=== PATIENT | male | born 1945 | race Caucasian/White ===

== ENCOUNTER 2016-08-10 15:23 | Inpatient (IN) | payer OTHER, MEDICARE ==
[2016-08-10] VITALS (7 sets, daily range): BP systolic 91–121; BP diastolic 62–77; PULSE 65–72; RESP 16–24; TEMP 97.2–97.3; O2SAT 95–98
[~2016-08-10] VITALS: Ht 185.4 cm; Wt 99.6 kg
--- NOTE | 2016-08-10 15:30 | PD ---
Physical Exam Date Seen by Provider: August 10, 2016 Time Seen by Provider: 15:28 Narrative 70 YOWM C/O FALL. H/O FALLING. CHRONIC PEDAL EDEMA. FEELS NEED FOR MED ADJUSTMENT. [facility] BALBUENA VS NOTED wating for bed asignment Data Data Last Documented VS Vital Signs Date Time Temp Pulse Resp B/P Pulse Ox O2 Delivery O2 Flow Rate FiO2 08/10/16 15:26 97.3 72 24 91/62 95 Room Air [facility] Medical Record Reviewed: No Supervised Visit with KEL: Jose Antonio Dai August 10, 2016 15:30
[2016-08-10] MEDS ORDERED: SODIUM CHLORIDE 0.9% FLUSH 10 ML FLUSH IVF PRN (16:00)
[2016-08-10] MEDS ORDERED: SERO400T PO (16:41)
[2016-08-10] MEDS ORDERED: LISI2.5T3 PO (16:41)
[2016-08-10] MEDS ORDERED: VENTAER INH (16:41)
[2016-08-10] MEDS ORDERED: METO100T9 PO (16:41)
[2016-08-10] MEDS ORDERED: TAMS0.4C4 PO (16:41)
[2016-08-10] MEDS ORDERED: TYLE325T PO (16:41)
[2016-08-10] MEDS ORDERED: COLA100C3 PO (16:41)
[2016-08-10] MEDS ORDERED: VITA10002 PO (16:41)
[2016-08-10] MEDS ORDERED: NAPR500T PO (16:41)
[2016-08-10] MEDS ORDERED: FURO1TAB62 PO (16:41)
[2016-08-10] MEDS ORDERED: ALLO100T PO (16:41)
[2016-08-10] MEDS ORDERED: GABA100C4 PO (16:41)
[2016-08-10] MEDS ORDERED: FOLI1TAB4 PO (16:41)
[2016-08-10] MEDS ORDERED: SYMB160A INH (16:41)
[2016-08-10] MEDS ORDERED: PARO40TA2 PO (16:41)
[2016-08-10] MEDS ORDERED: ATOR20TA15 PO (16:41)
--- NOTE | 2016-08-10 16:43 | RADRPT ---
EXAM DATE/TIME: 08/10/2016 16:20 [facility] COMPARISON: No previous studies available for comparison. INDICATIONS : Chest pain, shortness of breath starting today MEDICAL HISTORY : None. SURGICAL HISTORY : Defibrillator ENCOUNTER: Initial ACUITY: 1 day PAIN SCORE: 5/10 LOCATION: Bilateral chest FINDINGS: Pacemaker is implanted in the left chest. Heart is enlarged. Pulmonary vascularity is normal. Ther e is no alveolar consolidation, pleural effusion or pneumothorax. CONCLUSION: Pacer, compensated cardiomegaly. Petr Lopez MD FACR on August 10, 2016 at 16:39 Board Certified Radiologist. This report was verified electronically.
[2016-08-10 16:56] LABS: AUTOMATED NEUTROPHIL # 7.5 TH/MM3 (1.8-7.7); BASOPHIL % 0.3 % (0.0-2.0); EOSINOPHIL % 0.1 % (0.0-4.0); HEMATOCRIT 39.5 % (39.0-51.0); HEMO FLAGS DIFF FINAL; LYMPH % 15.2 % (9.0-44.0); LYMPHOCYTE # 1.5 TH/MM3 (1.0-4.8); MEAN CELL VOLUME 80.7 FL (80.0-100.0); MEAN CORPUSCULAR HEMOGLOBIN 25.8 PG (27.0-34.0); MONO % 9.6 % (0.0-8.0); NEUT % 74.8 % (16.0-70.0); PLATELET COUNT 180 TH/MM3 (150-450); RED CELL DISTRIBUTION WIDTH 16.4 % (11.6-17.2)
[2016-08-10 17:03] LABS: APTT (PATIENT) 27.8 SEC (24.3-30.1); INTERNATIONAL NORMALIZED RATIO 1.3 RATIO; PROTHROMBIN TIME - PATIENT 14.5 SEC (9.8-11.6)
[2016-08-10 17:09] LABS: ANION GAP 10 MEQ/L (5-15); BICARBONATE 30.2 MEQ/L (21.0-32.0); BLOOD UREA NITROGEN 30 MG/DL (7-18); CHLORIDE 98 MEQ/L (98-107); GLOMERULAR FILTRATION RATE 34 ML/MIN (>89); MAGNESIUM 2.3 MG/DL (1.5-2.5); POTASSIUM 4.1 MEQ/L (3.5-5.1); SODIUM (NA) 138 MEQ/L (136-145)
[2016-08-10 17:14] LABS: CREATINE KINASE 136 U/L (39-308)
--- NOTE | 2016-08-10 17:27 | PD ---
HPI Chief Complaint: Fall Time Seen by Provider: 15:49 Travel History International Travel<30 days: No Contact w/Intl Traveler<30days: No Traveled to known affect area: No History of Present Illness HPI 70 yo M arrives from the [place]. He reports dyspnea on exertion and orthopnea for the past several days. He states he has been taking his Lasix as per usual. He reports he had a fall today at home. He denies pain or injury from the fall. Evidently he's been falling somewhat frequently at home. Additionally he reports feeling somewhat dizzy. To me he states that he might have lost consciousness when he fell however he is not sure. He suggested that his medications may need to be adjusted, as did his primary from the [place] in transfer documentation. was seen at the [place] this morning and was sent here for further investigation. [facility] Past Medical History Cardiovascular Problems: Yes Congestive Heart Failure: Yes Diminished Hearing: No Gout: Yes Myocardial Infarction: Yes (x 2) Tetanus Vaccination: Unknown Influenza Vaccination: No ?: Not Past Surgical History AICD: Yes Other Surgery: Yes (defib placement) Social History Alcohol Use: Yes (occ) Tobacco Use: Yes Substance Use: No Allergies-Medications (Allergen,Severity, Reaction): Coded Allergies: No Known Allergies (Unverified , 08/10/16) Reported Meds & Prescriptions Reported Meds & Active Scripts Active Reported Naproxen 500 Mg Tab 500 Mg PO BID Tamsulosin (Tamsulosin HCl) 0.4 Mg Cap 0.4 Mg PO HS Seroquel (Quetiapine Fumarate) 400 Mg Tab 400 Mg PO HS Paroxetine (Paroxetine HCl) 40 Mg Tab 20 Mg PO DAILY Metoprolol Succinate ER 24 HR (Metoprolol Succinate) 100 Mg Tab 50 Mg PO DAILY Hold if SBP <90 Lisinopril 2.5 Mg Tab 2.5 Mg PO DAILY Hold if SBP <90 Gabapentin 100 Mg Cap 100 Mg PO TID Lasix (Furosemide) 20 Mg Tab 20 Mg PO DAILY Folate (Folic Acid) 1 Mg Tab 1 Mg PO DAILY Colace (Docusate Sodium) 100 Mg Cap 100 Mg PO BID Vitamin B-12 (Cyanocobalamin) 1,000 Mcg Tab 1,000 Mcg PO DAILY Symbicort Inh (Budesonide/Formoterol Fumarate) 160-4.5 Mcg/Act Aero 2 Puff INH Q12HR Atorvastatin (Atorvastatin Calcium) 20 Mg Tab 10 Mg PO HS Allopurinol 100 Mg Tab 100 Mg PO DAILY Ventolin Hfa 18 GM Inh (Albuterol Sulfate) 90 Mcg/Act Aer 2 Puff INH QID PRN Tylenol (Acetaminophen) 325 Mg Tab 325 Mg PO Q6H PRN Review of Systems Except as stated in HPI: all other systems reviewed are Neg Physical Exam Narrative GENERAL: 70 yo M, WNWD, mild distress SKIN: Warm and dry. HEAD: Atraumatic. Normocephalic. EYES: Pupils equal and round. No scleral icterus. No injection or drainage. ENT: No nasal bleeding or discharge. Mucous membranes pink and moist. NECK: Trachea midline. No JVD. CARDIOVASCULAR: Regular rate and rhythm. RESPIRATORY: No accessory muscle use. Clear to auscultation. Breath sounds equal bilaterally. GASTROINTESTINAL: Abdomen soft, non-tender, nondistended. Hepatic and splenic margins not palpable. MUSCULOSKELETAL: Extremities without clubbing, cyanosis. No obvious deformity. 2 + pitting edema bilaterally lower extremities. There is a palpable dorsalis pedis pulse in both feet. On the left foot there is a mild darkening/ discoloration. Foot is somewhat cold on the left side. NEUROLOGICAL: Awake and alert. No obvious cranial nerve deficits. Motor grossly within normal limits. Five out of 5 muscle strength in the arms and legs. Normal speech. PSYCHIATRIC: Appropriate mood and affect; insight and judgment normal. Data Data Last Documented VS Vital Signs Date Time Temp Pulse Resp B/P Pulse Ox O2 Delivery O2 Flow Rate FiO2 08/10/16 16:47 65 16 107/67 98 Room Air 08/10/16 15:26 97.3 Vital signs reviewed Orders Complete Blood Count With Diff (08/10/16 15:49) Basic Metabolic Panel (Bmp) (08/10/16 15:49) B-Type Natriuretic Peptide (08/10/16 15:49) Act Partial Throm Time (Ptt) (08/10/16 15:49) Prothrombin Time / Inr (Pt) (08/10/16 15:49) Magnesium (Mg) (08/10/16 15:49) Ckmb (Isoenzyme) Profile (08/10/16 15:49) Troponin I (08/10/16 15:49) Iv Access Insert/Monitor (08/10/16 15:49) Electrocardiogram (08/10/16 15:49) Ecg Monitoring (08/10/16 15:49) Oximetry (08/10/16 15:49) Oxygen Administration (08/10/16 15:49) Chest, Single Ap (08/10/16 15:49) Sodium Chloride 0.9% Flush (Ns Flush) (08/10/16 16:00) CKMB (08/10/16 16:01) CKMB% (08/10/16 16:01) Furosemide Inj (Lasix Inj) (08/10/16 17:30) Admit Order (Ed Use Only) (08/10/16 17:29) Labs Laboratory Tests Test 08/10/16 16:01 White Blood Count 10.0 TH/MM3 Red Blood Count 4.90 MIL/MM3 Hemoglobin 12.6 GM/DL Hematocrit 39.5 % Mean Corpuscular Volume 80.7 FL Mean Corpuscular Hemoglobin 25.8 PG Mean Corpuscular Hemoglobin 32.0 % Concent Red Cell Distribution Width 16.4 % Platelet Count 180 TH/MM3 Mean Platelet Volume 8.6 FL Neutrophils (%) (Auto) 74.8 % Lymphocytes (%) (Auto) 15.2 % Monocytes (%) (Auto) 9.6 % Eosinophils (%) (Auto) 0.1 % Basophils (%) (Auto) 0.3 % Neutrophils # (Auto) 7.5 TH/MM3 Lymphocytes # (Auto) 1.5 TH/MM3 Monocytes # (Auto) 1.0 TH/MM3 Eosinophils # (Auto) 0.0 TH/MM3 Basophils # (Auto) 0.0 TH/MM3 CBC Comment DIFF FINAL Differential Comment Prothrombin Time 14.5 SEC Prothromb Time International 1.3 RATIO Ratio Activated Partial 27.8 SEC Thromboplast Time Sodium Level 138 MEQ/L Potassium Level 4.1 MEQ/L Chloride Level 98 MEQ/L Carbon Dioxide Level 30.2 MEQ/L Anion Gap 10 MEQ/L Blood Urea Nitrogen 30 MG/DL Creatinine 1.96 MG/DL Estimat Glomerular Filtration 34 ML/MIN Rate Random Glucose 96 MG/DL Calcium Level 8.9 MG/DL Magnesium Level 2.3 MG/DL Total Creatine Kinase 136 U/L Creatine Kinase MB 13.0 NG/ML Troponin I 0.05 NG/ML B-Type Natriuretic Peptide 1330 PG/ML MDM Medical Decision Making Medical Screen Exam Complete: Yes Emergency Medical Condition: Yes Medical Record Reviewed: Yes Differential Diagnosis CHF, fall, anemia, pneumonia, renal failure, arrhythmia, electrolyte imbalance Narrative Course CBC & BMP Diagram 08/10/16 16:01 Last 24 hours Impressions Chest X-Ray 08/10/16 1549 Signed Impressions: Service Date/Time: Wednesday, August 10, 2016 16:20 - CONCLUSION: Pacer, compensated cardiomegaly. Petr Lopez MD FACR BNP 1330 Troponin 0.05 Patient has CHF. IV Lasix given. He'll be admitted for monitoring and for diuresis. d/w Dr Aly for [facility]. I was called to the bedside by the nurse who was concerned about the patient's left foot with some discoloration and coldness compared to the right side. Both feet are shiny and the left is cold and darker in coloration. The patient has palpable dorsalis pedis on both feet, though very faint. CTA was ordered and then postponed 2/2 to compromised renal function with further diuresis anticipated. Diagnosis Primary Impression: CHF (congestive heart failure) Qualified Code: I50.9 - Congestive heart failure, unspecified congestive heart failure chronicity, unspecified congestive heart failure type Additional Impression: Fall Qualified Code: W19.XXXA - Fall, initial encounter Admitting Information Admitting Physician Requests: Admit Juan A James MD August 10, 2016 17:27
[2016-08-10] MEDS ORDERED: FUROSEMIDE 40 MG/4 ML VIAL IV PUSH ONE (17:30)
--- NOTE | 2016-08-10 17:40 | HHI.HP ---
HPI Service [facility] Primary [facility] Phys[facility] Admission Diagnosis CHF Exacerbation Diagnoses: Chief Complaint: sob , dizziness Travel History International Travel<30 Days: No Contact w/Intl Traveler <30 Da: No Traveled to Known Affected Are: No History of Present Illness 70 yo M past medical history of systolic congestive heart failure with AICD, hyperlipidemia, BPH, COPD, depression/anxiety arrives from the [place] for evaluation of dyspnea on exertion and orthopnea for the past several days. He states he has been taking his Lasix as per usual. He denies the patient had a fall today at home. Denies pain or injury from the fall. Evidently he's been falling somewhat frequently at home. He suggested that his medications may need to be adjusted. Additionally he reports feeling somewhat dizzy. To me he states that he might have lost consciousness however he is not sure. He was seen at the [facility] this morning and was sent here for further investigation. The patient also reports his blood pressure is getting low at times. He denies having cough at this time. He is using multiple pillows at home. He has noted that swelling of his legs has increased over the past 2 days. He is getting more tired. He doesn't use any oxygen at home. No fever or chills. Denies nausea, vomiting. He says he used to have constipation from [facility]. He takes Whately for chronic back pain. Review of Systems Except as stated in HPI: all other systems reviewed are Neg Past Family Social History Past Medical History Systolic congestive heart failure with AICD, hyperlipidemia, BPH, COPD, depression/anxiety Past Surgical History AICD placement 2015 Reported Medications Reported Meds & Active Scripts Active Reported Naproxen 500 Mg Tab 500 Mg PO BID Tamsulosin (Tamsulosin HCl) 0.4 Mg Cap 0.4 Mg PO HS Seroquel (Quetiapine Fumarate) 400 Mg Tab 400 Mg PO HS Paroxetine (Paroxetine HCl) 40 Mg Tab 20 Mg PO DAILY Metoprolol Succinate ER 24 HR (Metoprolol Succinate) 100 Mg Tab 50 Mg PO DAILY Hold if SBP <90 Lisinopril 2.5 Mg Tab 2.5 Mg PO DAILY Hold if SBP <90 Gabapentin 100 Mg Cap 100 Mg PO TID Lasix (Furosemide) 20 Mg Tab 20 Mg PO DAILY Folate (Folic Acid) 1 Mg Tab 1 Mg PO DAILY Colace (Docusate Sodium) 100 Mg Cap 100 Mg PO BID Vitamin B-12 (Cyanocobalamin) 1,000 Mcg Tab 1,000 Mcg PO DAILY Symbicort Inh (Budesonide/Formoterol Fumarate) 160-4.5 Mcg/Act Aero 2 Puff INH Q12HR Atorvastatin (Atorvastatin Calcium) 20 Mg Tab 10 Mg PO HS Allopurinol 100 Mg Tab 100 Mg PO DAILY Ventolin Hfa 18 GM Inh (Albuterol Sulfate) 90 Mcg/Act Aer 2 Puff INH QID PRN Tylenol (Acetaminophen) 325 Mg Tab 325 Mg PO Q6H PRN Allergies: Coded Allergies: No Known Allergies (Unverified , 08/10/16) Family History Mom CHF, heart problems Dad lung problems Social History No smoking, illicit drug use or EtOH use. Says occasionally 1 glass of wine. Physical Exam Vital Signs Vital Signs Date Time Temp Pulse Resp B/P Pulse Ox O2 Delivery O2 Flow Rate FiO2 08/10/16 16:47 65 16 107/67 98 Room Air 08/10/16 15:59 98 Room Air 08/10/16 15:45 68 16 117/64 98 Room Air 08/10/16 15:26 97.3 72 24 91/62 95 Room Air Physical Exam GENERAL: This is a well-nourished, well-developed patient, sitting up in the bed , does not appear in acute distress. SKIN: No rashes, ecchymoses or lesions. Cool and dry. HEAD: Atraumatic. Normocephalic. No temporal or scalp tenderness. EYES: Pupils equal round and reactive. Extraocular motions intact. No scleral icterus. No injection or drainage. ENT: Nose without bleeding, purulent drainage or septal hematoma. Throat without erythema, tonsillar hypertrophy or exudate. Uvula midline. Airway patent. NECK: Trachea midline. No JVD or lymphadenopathy. Supple, nontender, no meningeal signs. CARDIOVASCULAR: Regular rate and rhythm without murmurs, gallops, or rubs. RESPIRATORY: Clear to auscultation. Breath sounds equal bilaterally. No wheezes , rales, or rhonchi. GASTROINTESTINAL: Abdomen soft, non-tender, nondistended. No hepato-splenomegaly , or palpable masses. No guarding. MUSCULOSKELETAL: Extremities noted with discoloration of left foot toes, decreased pedal pulses, clammy left extremity. Right foot also discoloration but worse is left foot. 3+ lower extremity edema. No joint tenderness, effusion, or edema noted. No calf tenderness. Negative Homans sign bilaterally. NEUROLOGICAL: Awake and alert. Cranial nerves II through XII intact. Motor and sensory grossly within normal limits. Five out of 5 muscle strength in all muscle groups. Normal speech. Laboratory Laboratory Tests Test 08/10/16 16:01 White Blood Count 10.0 Red Blood Count 4.90 Hemoglobin 12.6 Hematocrit 39.5 Mean Corpuscular Volume 80.7 Mean Corpuscular Hemoglobin 25.8 Mean Corpuscular Hemoglobin 32.0 Concent Red Cell Distribution Width 16.4 Platelet Count 180 Mean Platelet Volume 8.6 Neutrophils (%) (Auto) 74.8 Lymphocytes (%) (Auto) 15.2 Monocytes (%) (Auto) 9.6 Eosinophils (%) (Auto) 0.1 Basophils (%) (Auto) 0.3 Neutrophils # (Auto) 7.5 Lymphocytes # (Auto) 1.5 Monocytes # (Auto) 1.0 Eosinophils # (Auto) 0.0 Basophils # (Auto) 0.0 CBC Comment DIFF FINAL Differential Comment Prothrombin Time 14.5 Prothromb Time International 1.3 Ratio Activated Partial 27.8 Thromboplast Time Sodium Level 138 Potassium Level 4.1 Chloride Level 98 Carbon Dioxide Level 30.2 Anion Gap 10 Blood Urea Nitrogen 30 Creatinine 1.96 Estimat Glomerular Filtration 34 Rate Random Glucose 96 Calcium Level 8.9 Magnesium Level 2.3 Total Creatine Kinase 136 Creatine Kinase MB 13.0 Troponin I 0.05 B-Type Natriuretic Peptide 1330 Result Diagram: 08/10/16 1601 08/10/16 1601 Imaging Last Impressions Chest X-Ray 08/10/16 1549 Signed Impressions: Service Date/Time: Wednesday, August 10, 2016 16:20 - CONCLUSION: Pacer, compensated cardiomegaly. Petr Lopez MD FACR Assessment and Plan Assessment and Plan 70-year-old male with Acute exacerbation of systolic CHF Restart home medications. Switch Lasix to IV Has AICD, says last time was checked a month ago BNP noted elevated 1330. Monitor Troponin 0.05 he denies having any chest pain at this time He received IV Lasix in the emergency room Continue Lasix 40 mg IV twice a day. Hold if low blood pressure Monitor I's and O's , fluid restriction 1200 ml Chest x-ray reviewed and findings discussed with with the emergency room doctor. Pacer compensated cardiomegaly MATILDA: Creatinine 1.96 BUN 30, low GFR 34 on admission. Monitor kidney function. Avoid nephrotoxins if possible. Ultrasound the kidney's patient also has a history of BPH. Left lower extremities cold and discolored rated, palpable dorsalis pedis on both feet. POss PVD. CTA was ordered and then postponed secondary to compromise renal function and further diuresis. We'll consult vascular surgeon BPH. Continue home Medications. Hold if low blood pressure COPD without exacerbation restart home medications Hyperlipidemia restart atorvastatin DVT prophylaxis Lovenox Discussed Condition With Patient, nurse, Dr. James emergency room physician Halina Aly MD August 10, 2016 17:40
[2016-08-10] MEDS ORDERED: SODIUM CHLORIDE 0.9% FLUSH 10 ML FLUSH IV FLUSH PRN (17:45)
[2016-08-10] MEDS ORDERED: ONDANSETRON HCL 4 MG/2 ML VIAL IVP PRN (17:45)
[2016-08-10] MEDS: DOCUSATE SODIUM 100 MG CAP PO SCH ×2 (18:00→21:38)
[2016-08-10] MEDS ORDERED: ENOXAPARIN SODIUM 40 MG/0.4 ML SYRINGE SQ SCH (18:00)
[2016-08-10] MEDS: FUROSEMIDE 40 MG/4 ML VIAL IV PUSH SCH (18:24)
[2016-08-10] MEDS: SODIUM CHLORIDE 0.9% FLUSH 10 ML FLUSH IV FLUSH SCH (20:05)
[2016-08-10] MEDS ORDERED: ALBUTEROL SULFATE 90 MCG/ACT HFA 18 GM INHALER INH PRN (20:15)
[2016-08-10] MEDS ORDERED: PILL SPLITTER OTHER PRN (20:30)
[2016-08-10] MEDS: BUDESONIDE-FORMOTEROL 160/4.5 MCG INHALER INH SCH (21:37)
[2016-08-10] MEDS: TAMSULOSIN HCL 0.4 MG CAP PO SCH (21:38)
[2016-08-10] MEDS: ATORVASTATIN 20 MG TAB PO SCH (21:38)
[2016-08-10] MEDS: QUEtiapine FUMARATE 200 MG TAB PO SCH (21:39)
--- NOTE | 2016-08-10 23:22 | RADRPT ---
EXAM DATE/TIME: 08/10/2016 20:47 [facility] COMPARISON: No previous studies available for comparison. INDICATIONS : Increased BUN/Creatinine. MEDICAL HISTORY : Chronic obstructive pulmonary disease. Hypercholesterolemia. Congestive heart failure. Myocardial inf arction. Irregular heartbeat. Asthma. Gout. Post traumatic stress disorder. Depression. Anxiety. SURGICAL HISTORY : Internal defibrillator. ENCOUNTER: Initial ACUITY: 1 day PAIN SCORE: 0/10 LOCATION: Bilateral flank MEASUREMENTS: RIGHT KIDNEY: 10.3 x 5.2 x 4.7 cm LEFT KIDNEY: 11.3 x 5.0 x 5.3 cm FINDINGS: RIGHT KIDNEY: There is some increased echogenicity of the renal parenchyma. There is no hydronephrosis. There is a cyst along the lower pulmonary 2.3 cm. LEFT KIDNEY: There is some increased echogenicity of the renal parenchyma. There is no evidence of hydronephrosis. BLADDER: Within normal limits given the degree of distension. There is some free fluid in the upper and lower abdomen. CONCLUSION: 1. No evidence of hydronephrosis. 2. Increased echogenicity of the renal parenchyma suggestive of chronic medical renal disease. 3. Right lower pole renal cyst measuring 2.3 cm. 4. There is some free fluid in the abdomen. Wil Tuttle MD on August 10, 2016 at 23:19 Board Certified Radiologist. This report was verified electronically.
[2016-08-11] VITALS (11 sets, daily range): BP systolic 87–131; BP diastolic 59–79; PULSE 60–87; RESP 16–21; TEMP 97.8–98.9; O2SAT 92–98
[2016-08-11] MEDS: DOCUSATE SODIUM 100 MG CAP PO SCH ×3 (06:15→21:49)
--- NOTE | 2016-08-11 06:55 | HHI.PR ---
Subjective Remarks In bed, feels improving since yesterday. SOB improved. LE about the same. Says she did urinate but did not save in container. Says he doesn't have any chest pain . SOB is improving. Says LE edema is about the same. Discoloration if the toes is improving. Objective Vitals Vital Signs Date Time Temp Pulse Resp B/P Pulse Ox O2 Delivery O2 Flow Rate FiO2 08/11/16 03:45 97.8 60 21 87/59 95 90/59 08/10/16 20:15 97.2 70 16 119/77 96 08/10/16 19:50 21 08/10/16 18:22 65 17 121/75 97 Room Air 08/10/16 17:49 97 21 08/10/16 16:47 65 16 107/67 98 Room Air 08/10/16 15:59 98 Room Air 08/10/16 15:45 68 16 117/64 98 Room Air 08/10/16 15:26 97.3 72 24 91/62 95 Room Air I/O 08/10/16 08/10/16 08/10/16 08/11/16 08/11/16 08/11/16 07:00 15:00 23:00 07:00 15:00 23:00 Output Total 300 ml Balance -300 ml Output Urine Total 300 ml Result Diagram: 08/10/16 1601 08/10/16 1601 Imaging Last Impressions Chest X-Ray 08/10/16 1549 Signed Impressions: Service Date/Time: Wednesday, August 10, 2016 16:20 - CONCLUSION: Pacer, compensated cardiomegaly. Petr Lopez MD FACR Renal Ultrasound 08/10/16 0000 Signed Impressions: Service Date/Time: Wednesday, August 10, 2016 20:47 - CONCLUSION: 1. No evidence of hydronephrosis. 2. Increased echogenicity of the renal parenchyma suggestive of chronic medical renal disease. 3. Right lower pole renal cyst measuring 2.3 cm. 4. There is some free fluid in the abdomen. Wil Tuttle MD Objective Remarks GENERAL: This is a well-nourished, well-developed patient, sitting up in the bed , does not appear in acute distress. SKIN: No rashes, ecchymoses or lesions. Cool and dry. HEAD: Atraumatic. Normocephalic. No temporal or scalp tenderness. EYES: Pupils equal round and reactive. Extraocular motions intact. No scleral icterus. No injection or drainage. ENT: Nose without bleeding, purulent drainage or septal hematoma. Throat without erythema, tonsillar hypertrophy or exudate. Uvula midline. Airway patent. NECK: Trachea midline. No JVD or lymphadenopathy. Supple, nontender, no meningeal signs. CARDIOVASCULAR: Regular rate and rhythm without murmurs, gallops, or rubs. RESPIRATORY: Clear to auscultation. Breath sounds equal bilaterally. No wheezes , rales, or rhonchi. GASTROINTESTINAL: Abdomen soft, non-tender, nondistended. No hepato-splenomegaly , or palpable masses. No guarding. MUSCULOSKELETAL: Toes with bluish discoloration noted on admission, discoloration is improving. 3+ lower extremity edema. No joint tenderness, effusion, or edema noted. No calf tenderness. Negative Homans sign bilaterally. NEUROLOGICAL: Awake and alert. Cranial nerves II through XII intact. Motor and sensory grossly within normal limits. Five out of 5 muscle strength in all muscle groups. Normal speech. A/P Assessment and Plan 70-year-old male with Acute exacerbation of systolic CHF Restart home medications. Lasix to IV Has AICD, says last time was checked a month ago BNP noted elevated 1330. Trending down. Monitor Troponin 0.05 he denies having any chest pain at this time Continue Lasix 40 mg IV twice a day. Hold if low blood pressure Monitor I's and O's , fluid restriction 1200 ml Chest x-ray reviewed and findings discussed with with the emergency room doctor. Pacer compensated cardiomegaly 2D ECHO pending MATILDA: Creatinine 1.96 BUN 30, low GFR 34 on admission. Monitor kidney function. Avoid nephrotoxins if possible. Ultrasound the kidney reviewed, chages consistent with chronic kidney disease. Cyst noted Left lower extremities cold and discolored rated, palpable dorsalis pedis on both feet. POss PVD. CTA was ordered and then postponed secondary to compromise renal function and further diuresis. We'll consult vascular surgeon BPH. Continue home Medications. Hold if low blood pressure COPD without exacerbation restart home medications Hyperlipidemia restart atorvastatin DVT prophylaxis Lovenox Discussed Condition With Patient, nurse DC plan: Improving. 2D ECHO pending. Halina Aly MD August 11, 2016 06:55
[2016-08-11 09:58] LABS: ALKALINE PHOSPHATASE 115 U/L (45-117); ALT (GPT) 60 U/L (12-78); ANION GAP 8 MEQ/L (5-15); AST (GOT) 35 U/L (15-37); BICARBONATE 29.7 MEQ/L (21.0-32.0); BLOOD UREA NITROGEN 32 MG/DL (7-18); CHLORIDE 101 MEQ/L (98-107); GLOMERULAR FILTRATION RATE 37 ML/MIN (>89); SODIUM (NA) 139 MEQ/L (136-145); TOTAL BILIRUBIN ADULT 1.3 MG/DL (0.2-1.0)
[2016-08-11] MEDS: BUDESONIDE-FORMOTEROL 160/4.5 MCG INHALER INH SCH ×2 (11:15→22:20)
[2016-08-11] MEDS: SODIUM CHLORIDE 0.9% FLUSH 10 ML FLUSH IV FLUSH SCH ×2 (11:16→21:00)
[2016-08-11] MEDS: ALLOPURINOL 100 MG TAB PO SCH (11:18)
[2016-08-11] MEDS: FUROSEMIDE 40 MG/4 ML VIAL IV PUSH SCH ×2 (11:18→17:18)
[2016-08-11] MEDS: METOPROLOL SUCCINATE 50 MG EXTENDED RELEASE TAB PO SCH (11:19)
[2016-08-11] MEDS: FOLIC ACID 1 MG TAB PO SCH (11:19)
[2016-08-11] MEDS: PARoxetine HCL 20 MG TAB PO SCH (11:19)
[2016-08-11] MEDS: LISINOPRIL 5 MG TAB PO SCH (11:19)
[2016-08-11] MEDS: CYANOCOBALAMIN 1,000 MCG TAB PO SCH (11:19)
[2016-08-11] MEDS: GABAPENTIN 100 MG CAP PO SCH ×3 (11:19→17:20)
--- NOTE | 2016-08-11 12:48 | MB ---
cc: JOSHUA OCASIO MD DATE OF CONSULTATION: 08/11/2016 REASON FOR CONSULTATION: Mr. Ricks is a 70-year-old gentleman who has multiple medical problems. He was brought to the emergency room because of problems with what [facility] assumed was progressive congestive heart failure. He has had a he has had a history of two myocardial infarctions a automatic implantable cardiac defibrillator insertion in the past. I have reviewed his past medical history and medications. PHYSICAL EXAMINATION: VITAL SIGNS: Blood pressure 100/70, pulse is 80, respirations are Heart 15. IN GENERAL: This is an alert cooperative white male who appears in no acute distress as resting comfortably in his bed. HEAD, EYES, EARS, NOSE, AND THROAT: Skin, head, eyes, ears, nose and throat: Are negative. NECK: The Neck is supple. He is 2+ carotid pulses and bruits. HEART: heart has a normal sinus rhythm. Heart sounds were distant. CHEST: Chest is clear to auscultation and percussion. No evidence of rhonchi. ABDOMEN: Abdomen is protuberant with abdominal hernia in the umbilical region and probably ascites. The groin pulses are 2+ bilaterally, palpable hernia in the umbilical region and probably ascites. Groin pulses are 2+ bilaterally. EXTREMITIES: Palpable popliteal pulse on the left dorsalis pedis on the left I cannot palpate a popliteal pulse on the right knee were dorsalis pedis pulse. The right lower extremity is warm to the touch and he has obvious inflammation in his right great toe. It is warm to the touch to approximately 10-12 cm above the ankle. This is also edematous compared to the left lower extremity. The left lower extremity is somewhat edematous, however it is cooler then the right lower extremity, it has a palpable dorsalis pedis pulse. As far as discoloration of the digits. There is no obvious significant discoloration suggestive of emboli. IMPRESSION I believe that this patient has acute gout, I have seen this admitting physician is already started to treat this. I believe this maybe a cause of the temperature difference between the right lower extremity. The left lower extremity at the left lower extremity has excellent pulses and no significant evidence of a vascular disease. The right lower extremity may very well have some superficial femoral artery occlusive disease. However, it is difficult to palpate his pulses mainly because of edema in his leg. RECOMMENDATIONS: I would recommend nothing be done at this point in time and we treat his congestive heart failure and treat his entry his acute gallop. He is a [facility] patient and he may very well in need to be referred to DC vascular surgeon for further evaluation or to The vascular surgeries at [facility], dependant on what the DC wants to do with this. I do not believe there is any further followup is necessary and thank you very much for the consultation. Joshua Ocasio MD MPH/mh /10:36 AM /12:38 PM
--- NOTE | 2016-08-11 13:31 | EKG ---
Date Performed: 08/10/2016 Time Performed: 16:07:27 PTAGE: 70 years EKG: ELECTRONIC VENTRICULAR PACEMAKER ABNORMAL RHYTHM ECG NO PREVIOUS TRACING DOCTOR: Lizette Hoskins Interpretating Date/Time 08/11/2016 13:29:13
[2016-08-11] MEDS: HEPARIN-D5W INJ 250 ML IV SCH (17:29)
[2016-08-11 17:58] LABS: HEMATOCRIT 37.8 % (39.0-51.0); MEAN CORPUSCULAR HEMOGLOBIN 25.4 PG (27.0-34.0); MEAN CORPUSCULAR HGB CONC 31.4 % (32.0-36.0); PLATELET COUNT 167 TH/MM3 (150-450); RED BLOOD COUNT 4.67 MIL/MM3 (4.50-5.90); RED CELL DISTRIBUTION WIDTH 16.8 % (11.6-17.2); REVIEW FLAG FINAL; WHITE BLOOD COUNT 9.1 TH/MM3 (4.0-11.0)
[2016-08-11 18:07] LABS: APTT (PATIENT) 27.9 SEC (24.3-30.1); INTERNATIONAL NORMALIZED RATIO 1.3 RATIO; PROTHROMBIN TIME - PATIENT 14.7 SEC (9.8-11.6)
[2016-08-11] MEDS: ATORVASTATIN 20 MG TAB PO SCH (21:49)
[2016-08-11] MEDS: TAMSULOSIN HCL 0.4 MG CAP PO SCH (21:49)
[2016-08-11] MEDS: ACETAMINOPHEN 325 MG TAB PO PRN (21:52)
[2016-08-11] MEDS ORDERED: HYDR-3580 PO (22:06)
[2016-08-11] MEDS: QUEtiapine FUMARATE 200 MG TAB PO SCH (22:19)
[2016-08-12] VITALS (29 sets, daily range): BP systolic 83–105; BP diastolic 50–70; PULSE 60–82; RESP 18; TEMP 97.5–98.3; O2SAT 91–99
[2016-08-12 00:01] LABS: APTT (PATIENT) 70.6 SEC (24.3-30.1)
[2016-08-12] MEDS: HEPARIN-D5W INJ 250 ML IV SCH ×2 (05:00→21:30)
[2016-08-12 06:53] LABS: APTT (PATIENT) 125.5 SEC (24.3-30.1)
--- NOTE | 2016-08-12 08:31 | HHI.PR ---
Subjective Remarks Patient says he is with sob, same as yesterday nor worsening. He denies having any pain. LE edema the same, he has more pain in his right leg and also noted more swelling. Started heparin yesterday. Discussed with the patient PO options if anticoagulation. Patient says he will think about it. Patient denies chest pain at this time. He does feel tired. No lightheadedness, he however is not ambulating much . His BP is low , hole BP meds. No cough. No fever or chills. Objective Vitals Vital Signs Date Time Temp Pulse Resp B/P Pulse Ox O2 Delivery O2 Flow Rate FiO2 08/12/16 06:06 64 08/12/16 05:27 98.2 60 18 95/70 92 08/12/16 05:00 60 08/12/16 04:00 60 08/12/16 03:00 60 08/12/16 02:00 60 08/12/16 01:00 60 08/12/16 00:35 98.1 67 18 105/68 99 08/12/16 00:00 60 08/11/16 23:09 Nasal Cannula 2.00 08/11/16 23:00 60 08/11/16 22:00 66 08/11/16 21:00 66 08/11/16 20:00 98.1 71 18 90/64 92 08/11/16 20:00 66 08/11/16 19:00 70 08/11/16 18:49 98.6 67 16 111/79 98 Manual Cuff/Auscultation 08/11/16 12:31 98.9 87 18 118/68 98 I/O 08/11/16 08/11/16 08/11/16 08/12/16 08/12/16 08/12/16 06:59 14:59 22:59 06:59 14:59 22:59 Intake Total 750 ml 312 ml 240 ml Output Total 300 ml 600 ml 1050 ml 550 ml Balance -300 ml 150 ml -738 ml -310 ml Intake Oral 750 ml 240 ml 240 ml IV Total 72 ml Output Urine Total 300 ml 600 ml 1050 ml 550 ml Bladder Scan Volume Amount 528 ml 330 ml # Bowel Movements 0 0 Result Diagram: 08/11/16 1265 08/11/16 0827 Imaging Last Impressions Chest X-Ray 08/10/16 3649 Signed Impressions: Service Date/Time: Wednesday, August 10, 2016 16:20 - CONCLUSION: Pacer, compensated cardiomegaly. Petr Lopez MD FACR Renal Ultrasound 08/10/16 0000 Signed Impressions: Service Date/Time: Wednesday, August 10, 2016 20:47 - CONCLUSION: 1. No evidence of hydronephrosis. 2. Increased echogenicity of the renal parenchyma suggestive of chronic medical renal disease. 3. Right lower pole renal cyst measuring 2.3 cm. 4. There is some free fluid in the abdomen. Wil Tuttle MD Objective Remarks GENERAL: This is a well-nourished, well-developed patient, sitting up in the bed , does not appear in acute distress. SKIN: No rashes, ecchymoses or lesions. Cool and dry. HEAD: Atraumatic. Normocephalic. No temporal or scalp tenderness. EYES: Pupils equal round and reactive. Extraocular motions intact. No scleral icterus. No injection or drainage. ENT: Nose without bleeding, purulent drainage or septal hematoma. Throat without erythema, tonsillar hypertrophy or exudate. Uvula midline. Airway patent. NECK: Trachea midline. No JVD or lymphadenopathy. Supple, nontender, no meningeal signs. CARDIOVASCULAR: Regular rate and rhythm without murmurs, gallops, or rubs. RESPIRATORY: Clear to auscultation. Breath sounds equal bilaterally. No wheezes , rales, or rhonchi. GASTROINTESTINAL: Abdomen soft, non-tender, nondistended. No hepato-splenomegaly , or palpable masses. No guarding. MUSCULOSKELETAL: Toes with bluish discoloration noted on admission, discoloration is improving. 3+ lower extremity edema. No joint tenderness, effusion, or edema noted. No calf tenderness. Negative Homans sign bilaterally. NEUROLOGICAL: Awake and alert. Cranial nerves II through XII intact. Motor and sensory grossly within normal limits. Five out of 5 muscle strength in all muscle groups. Normal speech. A/P Assessment and Plan 70-year-old male with Acute exacerbation of systolic CHF Per preliminary ECHO on this admission, patient with thrombus. Started heparin drip. consult cardiology . Patient is in [facility]. Restart home medications. Lasix to IV Has AICD, says last time was checked a month ago BNP noted elevated 1330. Trending down. Monitor Troponin 0.05 he denies having any chest pain at this time Continue Lasix 40 mg IV twice a day. Hold if low blood pressure Monitor I's and O's , fluid restriction 1200 ml Chest x-ray reviewed and findings discussed with with the emergency room doctor. Pacer compensated cardiomegaly 2D ECHO pending MATILDA: Creatinine 1.96 BUN 30, low GFR 34 on admission. Monitor kidney function. Avoid nephrotoxins if possible. Ultrasound the kidney reviewed, chages consistent with chronic kidney disease. Cyst noted Left lower extremities cold and discolored rated, palpable dorsalis pedis on both feet. POss PVD. CTA was ordered and then postponed secondary to compromise renal function and further diuresis. We'll consult vascular surgeon BPH. Continue home Medications. Hold if low blood pressure COPD without exacerbation restart home medications Hyperlipidemia restart atorvastatin DVT prophylaxis Lovenox Discussed Condition With Patient, nurse DC plan: Improving. 2D ECHO pending. Halina Aly MD August 12, 2016 08:31
[2016-08-12] MEDS: ALLOPURINOL 100 MG TAB PO SCH (08:32)
[2016-08-12] MEDS: GABAPENTIN 100 MG CAP PO SCH ×3 (08:32→18:37)
[2016-08-12] MEDS: DOCUSATE SODIUM 100 MG CAP PO SCH ×2 (08:32→20:47)
[2016-08-12] MEDS: PARoxetine HCL 20 MG TAB PO SCH (08:33)
[2016-08-12] MEDS: LISINOPRIL 5 MG TAB PO SCH (08:33)
[2016-08-12] MEDS: CYANOCOBALAMIN 1,000 MCG TAB PO SCH (08:33)
[2016-08-12] MEDS: FOLIC ACID 1 MG TAB PO SCH (08:33)
[2016-08-12] MEDS: METOPROLOL SUCCINATE 50 MG EXTENDED RELEASE TAB PO SCH (08:33)
[2016-08-12] MEDS: FUROSEMIDE 40 MG/4 ML VIAL IV PUSH SCH ×2 (08:33→18:00)
[2016-08-12] MEDS: SODIUM CHLORIDE 0.9% FLUSH 10 ML FLUSH IV FLUSH SCH ×2 (08:34→20:48)
[2016-08-12] MEDS: BUDESONIDE-FORMOTEROL 160/4.5 MCG INHALER INH SCH ×2 (10:40→20:48)
[2016-08-12] MEDS: ACETAMINOPHEN 325 MG TAB PO PRN ×2 (10:41→20:47)
[2016-08-12 11:06] LABS: APTT (PATIENT) 59.1 SEC (24.3-30.1)
--- NOTE | 2016-08-12 11:27 | MB ---
cc: JAYANT ALY MD,HARSHAL Mahmood M.D. DATE OF CONSULTATION: 08/12/2016 REASON FOR CONSULTATION: HISTORY OF PRESENT ILLNESS: Dre is a very pleasant 70 year-old gentleman with a history of congestive heart failure, followed at the [facility]. He presents to the hospital with a chief complaint of dyspnea, lightheadedness, and some right lower extremity discomfort. I reviewed his 2-D echocardiogram yesterday and he had a large oval shaped partially calcified thrombus in the LV apex. I measured it to be approximately 20 cm long axis by about 10 millimeters and short axis. The patient had a temperature disparity with a lower temperature by palpitation in the right lower extremity compared to the left. He has been evaluated by Dr. Bravo, however, this is prior to the echocardiogram results as detailed above. The patient otherwise denies any fever, chills, cough, GI or bleeding, paroxysmal nocturnal dyspnea, orthopnea, syncope or dizziness. PAST MEDICAL HISTORY: As per history of present illness. 1. Myocardial infarction x2. 2. Gout. 3. Status post AICD. REVIEW OF SYSTEMS: The patient complains of lower extremity edema. SOCIAL HISTORY He does drink alcohol occasionally. He does smoke. ALLERGIES: NONE. MEDICATIONS PRIOR TO ADMISSION: 1. Naproxen. 2. Tamsulosin. 3. Seroquel. 4. Paroxetine. 5. Metoprolol in the ER. 6. Lisinopril 2.5 7. Gabapentin 8. Lasix 20 daily. 9. Folate. 10. Colace. 11. Vitamin B12. 12. Symbicort. 13. Atorvastatin 20. 14. Allopurinol 15. Ventolin 16. Tylenol. MEDICATIONS IN THE HOSPITAL: 1. IV heparin. 2. Allopurinol. 3. Cyanocobalamin. 4. Folic acid 5. Gabapentin. 6. Paroxetine. 7. Lisinopril 2.5 daily. 8. Metoprolol 50 daily. 9. Atorvastatin 10 hs. 10. Symbicort. 11. Docusate 100 b.i.d. 12. Tamsulosin. 13. Lasix 40 IV b.i.d. PHYSICAL EXAMINATION VITAL SIGNS: Blood pressure 95/70, pulse 68, respiratory rate 18, temperature 98.2. Sats are 92% on room air. GENERAL: He is alert, oriented x3, in no acute distress. NECK: Supple. No JVD. No bruits. CARDIOVASCULAR: S1-S2. No murmurs, rubs, or gallops. LUNGS: Clear to auscultation bilaterally. ABDOMEN: Soft, non-tender, non-distended. Positive bowel sounds. EXTREMITIES: 1 to 2+ lower extremity edema. I do not appreciate a temperature difference between the right lower extremity below the knee today. LABORATORY DATA: White count 9.1, hemoglobin 11.9, hematocrit 37.8, platelet count 167. BNP is 1330 on admission, today it is 1051. Sodium 138, potassium 4.1, chloride 98, bicarb 30.2, BUN 30, creatinine 1.96, magnesium 2.3. CK 136, troponin 0.05. INR 1.3. PTT this morning is 125.5. Chest x-ray, pacer, compensated cardiomyopathy. EKG: Paced ventricular rhythm with A-sensing, sinus rhythm. FINAL DIAGNOSIS 1. LV thrombus. 2. Cardiomyopathy. 3. Coronary artery disease. 4. Tobacco abuse. 5. Chronic renal insufficiency. 6. Decompensated congestive heart failure. 7. Anemia. DISCUSSION I have discussed the case with Dr. Aly. The patient is already anticoagulated adequately with IV heparin, needs to be on long-term Coumadin. Will have Dr. Bravo reevaluate the patient to determine if the patient needs any further peripheral vascular evaluation in terms of analysis for embolic phenomenon or just empiric treatment with Coumadin. Provided the patient does not require any further invasive evaluation or management, would recommend to begin Coumadin now. Again, I have discussed this with Dr. Aly. Otherwise, the patient appears to be on optimal medical therapy. He is on a low dose MACARENA inhibitor given his chronic renal insufficiency. He is on as much of a beta-christiano dose as he can hemodynamically tolerate as he is having near-syncope with hypotension. Therefore, I do not think we can increase his beta-christiano dose. He is also being treated with a statin. Certainly strongly recommend smoking cessation. Agree with p.r.n. diuresis. I think it would be helpful to have renal evaluate him. It is unclear whether or not he may have some degree of cardiorenal syndrome to help determine his optimal diuretic regimen. Harshal W. Michaela, MD AWC/SAM /10:13 AM /10:42 AM
--- NOTE | 2016-08-12 16:58 | PD.CONS ---
HPI Consult Requested By Reason for Consult Probable acute on chronic renal insufficiency. [facility] Phys[facility] History of Present Illness This patient is a 70-year-old male with a history of a cardiomyopathy and congestive heart failure status post AICD placement, COPD presenting with a history of increasing shortness of breath, hypotension and increasing lower extremity edema. Initial creatinine level on presentation 1.96. Patient uncertain as to whether or not he was actually taking an NSAID prior to admission. Outpatient medications included lisinopril, furosemide. Patient is followed by the local [facility]". Patient has been evaluated by vascular surgery for possible significant peripheral vascular disease. Has been assessed as having an acute episode of gout with plan for follow-up as an outpatient. Cardiology indicated presence of calcified thrombus left ventricular apex. Anticoagulation apparently recommended. Review of Systems Constitutional: COMPLAINS OF: Fatigue, DENIES: Diaphoretic episodes, Fever, Weight gain, Weight loss, Chills, Dizziness, Change in appetite, Night Sweats Respiratory: COMPLAINS OF: Shortness of breath, DENIES: Apneas, Cough, Snoring , Wheezing, Hemoptysis, Sputum production Cardiovascular: COMPLAINS OF: Dyspnea on Exertion, Lower Extremity Edema, DENIES: Chest pain, Palpitations, Syncope, PND, Orthopnea, Claudication Gastrointestinal: DENIES: Abdominal pain, Black stools, Bloody stools, Constipation, Diarrhea, Nausea, Vomiting, Difficulty Swallowing, Anorexia Musculoskeletal: COMPLAINS OF: Joint pain, Stiffness, Joint Swelling, DENIES: Muscle aches, Back pain, Neck pain Past Family Social History Allergies: Coded Allergies: No Known Allergies (Unverified , 08/10/16) Past Medical History Congestive heart failure with systolic dysfunction. BPH COPD Left ventricular thrombus. Gout. CKD suggested by renal ultrasound. Past Surgical History Status post AICD placement. Reported Medications Reported Meds & Active Scripts Active Reported Hydrocodone-Acetaminophen 7.5-325 mg Tab 1 Tab PO Q4H PRN Naproxen 500 Mg Tab 500 Mg PO BID Tamsulosin (Tamsulosin HCl) 0.4 Mg Cap 0.4 Mg PO HS Seroquel (Quetiapine Fumarate) 400 Mg Tab 400 Mg PO HS Paroxetine (Paroxetine HCl) 40 Mg Tab 20 Mg PO DAILY Metoprolol Succinate ER 24 HR (Metoprolol Succinate) 100 Mg Tab 50 Mg PO DAILY Hold if SBP <90 Lisinopril 2.5 Mg Tab 2.5 Mg PO DAILY Hold if SBP <90 Gabapentin 100 Mg Cap 100 Mg PO TID Lasix (Furosemide) 20 Mg Tab 20 Mg PO DAILY Folate (Folic Acid) 1 Mg Tab 1 Mg PO DAILY Colace (Docusate Sodium) 100 Mg Cap 100 Mg PO BID Vitamin B-12 (Cyanocobalamin) 1,000 Mcg Tab 1,000 Mcg PO DAILY Symbicort Inh (Budesonide/Formoterol Fumarate) 160-4.5 Mcg/Act Aero 2 Puff INH Q12HR Atorvastatin (Atorvastatin Calcium) 20 Mg Tab 10 Mg PO HS Allopurinol 100 Mg Tab 100 Mg PO DAILY Ventolin Hfa 18 GM Inh (Albuterol Sulfate) 90 Mcg/Act Aer 2 Puff INH QID PRN Tylenol (Acetaminophen) 325 Mg Tab 325 Mg PO Q6H PRN Active Ordered Medications Current Medications Sodium Chloride (NS Flush) 2 ml UNSCH PRN IVF FLUSH AFTER USING IV ACCESS; Start 08/10/16 at 16:00; Stop 08/10/16 at 17:39; Status DC Furosemide (Lasix Inj) 40 mg ONCE ONCE IV PUSH ; Start 08/10/16 at 17:30; Stop 08/10/16 at 17:31; Status DC Sodium Chloride (NS Flush) 2 ml UNSCH PRN IV FLUSH FLUSH AFTER USING IV ACCESS ; Start 08/10/16 at 17:45 Sodium Chloride (NS Flush) 2 ml BID IV FLUSH Last administered on 08/12/16 08: 34; Start 08/10/16 at 21:00 Acetaminophen (Tylenol) 650 mg Q4H PRN PO TEMP > 100.4 Last administered on 10:41; Start 08/10/16 at 17:45 Ondansetron HCl (Zofran Inj) 4 mg Q6H PRN IVP NAUSEA OR VOMITING; Start at 17:45 Docusate Sodium (Colace) 100 mg Q12H PO Last administered on 08/11/16 06:15; Start 08/10/16 at 18:00; Stop 08/11/16 at 07:38; Status DC Magnesium Hydroxide (Milk Of Magnesia Liq) 30 ml Q12H PRN PO CONSTIPATION; Start 08/10/16 at 17:45 Enoxaparin Sodium (Lovenox Inj) 40 mg Q24H SQ Last administered on 08/10/16 18 :24; Start 08/10/16 at 18:00; Stop 08/11/16 at 16:27; Status DC Furosemide (Lasix Inj) 40 mg BID@09,18 IV PUSH Last administered on 08/11/16 17:18; Start 08/10/16 at 18:00 Albuterol Sulfate (Ventolin Hfa Inh) 2 puff QID PRN INH SHORTNESS OF BREATH; Start 08/10/16 at 20:15 Allopurinol (Zyloprim) 100 mg DAILY PO Last administered on 08/12/16 08:32; Start 08/11/16 at 09:00 Atorvastatin Calcium (Lipitor) 10 mg HS PO Last administered on 08/11/16 21:49 ; Start 08/10/16 at 21:00 Budesonide/ Formoterol Fumarate (Symbicort 160-4.5 Inh) 2 puff Q12HR INH Last administered on 08/12/16 10:40; Start 08/10/16 at 21:00 Cyanocobalamin (Vitamin B12) 1,000 mcg DAILY PO Last administered on 08/12/16 08:33; Start 08/11/16 at 09:00 Docusate Sodium (Colace) 100 mg BID PO Last administered on 08/12/16 08:32; Start 08/10/16 at 21:00 Folic Acid (Folate) 1 mg DAILY PO Last administered on 08/12/16 08:33; Start 08/11/16 at 09:00 Gabapentin (Neurontin) 100 mg TID PO Last administered on 08/12/16 16:06; Start 08/11/16 at 09:00 Paroxetine HCl (Paxil) 20 mg DAILY PO Last administered on 08/12/16 08:33; Start 08/11/16 at 09:00 Tamsulosin HCl (Flomax) 0.4 mg HS PO Last administered on 08/11/16 21:49; Start 08/10/16 at 21:00 Lisinopril (Prinivil) 2.5 mg DAILY PO BPM Last administered on 08/11/16 11:19; Start 08/11/16 at 09:00 Metoprolol Succinate (Toprol Xl) 50 mg DAILY PO Last administered on 08/11/16 11:19; Start 08/11/16 at 09:00 Quetiapine Fumarate (SEROquel) 400 mg HS PO Last administered on 08/11/16 22: 19; Start 08/10/16 at 21:00 Miscellaneous 1 ea 1 ea UNSCH PRN OTHER SEE LABEL COMMENTS; Start 08/10/16 at 20:30 Heparin Sodium/ Dextrose (Heparin-D5W Inj) 250 ml @ 0 mls/hr TITRATE IV Last administered on 08/12/16 05:00; Start 08/11/16 at 16:30 Family History Contributory to current complaint. Social History History of tobacco use. Physical Exam Vital Signs Vital Signs Date Time Temp Pulse Resp B/P Pulse Ox O2 Delivery O2 Flow Rate FiO2 08/12/16 15:39 77 08/12/16 14:00 62 08/12/16 13:24 60 08/12/16 12:15 60 08/12/16 11:29 97.5 66 18 93/50 96 08/12/16 11:28 62 08/12/16 10:23 91 Nasal Cannula 1.00 08/12/16 10:00 62 08/12/16 09:00 60 08/12/16 08:00 60 08/12/16 07:00 60 08/12/16 07:00 98.2 63 18 87/58 94 08/12/16 06:06 64 08/12/16 05:27 98.2 60 18 95/70 92 08/12/16 05:00 60 08/12/16 04:00 60 08/12/16 03:00 60 08/12/16 02:00 60 08/12/16 01:00 60 08/12/16 00:35 98.1 67 18 105/68 99 08/12/16 00:00 60 08/11/16 23:09 Nasal Cannula 2.00 08/11/16 23:00 60 08/11/16 22:00 66 08/11/16 21:00 66 08/11/16 20:00 98.1 71 18 90/64 92 08/11/16 20:00 66 08/11/16 19:00 70 08/11/16 18:49 98.6 67 16 111/79 98 Manual Cuff/Auscultation Physical Exam GENERAL: Not in respiratory distress at rest. Alert and responding appropriately to questions and commands. SKIN: Warm and dry. HEAD: Normocephalic. EYES: No scleral icterus. No injection or drainage. NECK: Supple, trachea midline. No JVD or lymphadenopathy. CARDIOVASCULAR: Regular rate and rhythm without murmurs, gallops, or rubs. RESPIRATORY: Breath sounds equal bilaterally. No accessory muscle use. GASTROINTESTINAL: Abdomen soft, non-tender, nondistended. MUSCULOSKELETAL: No cyanosis, 3+ pitting edema lower legs, 2+ pitting edema extending to mid thighs. BACK: Nontender without obvious deformity. No CVA tenderness. Laboratory Laboratory Tests Test 08/11/16 08/11/16 08/12/16 08/12/16 17:39 23:13 06:03 09:44 White Blood Count 9.1 Red Blood Count 4.67 Hemoglobin 11.9 Hematocrit 37.8 Mean Corpuscular Volume 81.0 Mean Corpuscular Hemoglobin 25.4 Mean Corpuscular Hemoglobin 31.4 Concent Red Cell Distribution Width 16.8 Platelet Count 167 Mean Platelet Volume 8.2 Prothrombin Time 14.7 Prothromb Time International 1.3 Ratio Activated Partial 27.9 70.6 125.5 59.1 Thromboplast Time Result Diagram: 08/11/16 1739 08/11/16 0827 Imaging Last 72 hours Impressions Chest X-Ray 08/10/16 1549 Signed Impressions: Service Date/Time: Wednesday, August 10, 2016 16:20 - CONCLUSION: Pacer, compensated cardiomegaly. Petr Lopez MD FACR Renal Ultrasound 08/10/16 0000 Signed Impressions: Service Date/Time: Wednesday, August 10, 2016 20:47 - CONCLUSION: 1. No evidence of hydronephrosis. 2. Increased echogenicity of the renal parenchyma suggestive of chronic medical renal disease. 3. Right lower pole renal cyst measuring 2.3 cm. 4. There is some free fluid in the abdomen. Wil Tuttle MD Assessment and Plan Problem List: (1) Acute kidney insufficiency Plan: Suspect patient does have an acute component of acute renal insufficiency possibly related to cardiorenal syndrome and relative hypotension. Uncertain as if the patient was actually using naproxen prior to presentation. If so this may contribute also to the patient's renal insufficiency and cardiac decompensation. Patient was counseled regarding potential adverse effects of using NSAIDs for analgesia in the setting of his congestive heart failure and probable CKD. Workup as ordered. Medications should be adjusted for the patient's estimated GFR if clinically indicated. Avoid agents with significant potential for nephrotoxicity possible including NSAIDs for analgesia, iodine contrast agents. Gadolinium is contraindicated if the GFR is below 30. (2) CKD (chronic kidney disease) stage 3, GFR 30-59 ml/min Plan: Suspected based on renal ultrasound findings however baseline renal indices not available to me. We'll try to obtain previous results from the [facility] i.e[facility]. (3) CHF (congestive heart failure) Plan: Continue diuretic therapy as long as tolerated. Monitor I's and O's and volume status. Problem Qualifiers (1) CHF (congestive heart failure): Qualified Code: I50.9 - Congestive heart failure, unspecified congestive heart failure chronicity, unspecified congestive heart failure type Aditi Mercado MD August 12, 2016 16:58
[2016-08-12 17:58] LABS: APTT (PATIENT) 68.1 SEC (24.3-30.1)
[2016-08-12 18:58] LABS: BLOOD, URINE MOD (NEG); GLUCOSE,URINE NEG (NEG); HYALINE CAST, URINE 1 /lpf (RARE); KETONE, URINE NEG (NEG); MUCUS URINE FEW /lpf (OCC); NITRITE,URINE NEG (NEG); SQUAMOUS EPITHELIAL CELL URINE <1 /hpf (0-5); URINE COLOR YELLOW (YELLW/STRAW)
[2016-08-12 18:59] LABS: COMMENT (UR) CATH
[2016-08-12] MEDS: ATORVASTATIN 20 MG TAB PO SCH (20:47)
[2016-08-12] MEDS: TAMSULOSIN HCL 0.4 MG CAP PO SCH (20:47)
[2016-08-12] MEDS: QUEtiapine FUMARATE 200 MG TAB PO SCH (20:47)
[2016-08-13] VITALS (28 sets, daily range): BP systolic 97–112; BP diastolic 63–73; PULSE 62–92; RESP 18–20; TEMP 97.8–98.8; O2SAT 91–96
[2016-08-13 07:05] LABS: BICARBONATE 32.5 MEQ/L (21.0-32.0); POTASSIUM 3.2 MEQ/L (3.5-5.1); TOTAL PROTEIN SPE 6.2 GM/DL (6.0-7.6)
[2016-08-13 07:13] LABS: APTT (PATIENT) 43.2 SEC (24.3-30.1)
--- NOTE | 2016-08-13 07:19 | HHI.PR ---
Subjective Remarks Still with the pain right leg. We will re-consult vascular surgeon for evaluation as the patient is with large thrombus. Otherwise patient denies any chest pain. He reports shortness of breath, says he cannot ambulate without oxygen and is more short of breath especially with effort. Denies fevers or chills, nausea or vomiting. Objective Vitals Vital Signs Date Time Temp Pulse Resp B/P Pulse Ox O2 Delivery O2 Flow Rate FiO2 08/13/16 06:00 78 08/13/16 05:00 77 08/13/16 04:00 74 08/13/16 03:00 98.3 78 18 103/67 95 08/13/16 03:00 72 08/13/16 02:00 72 08/13/16 01:00 71 08/13/16 00:00 62 08/12/16 23:00 98.3 75 18 83/53 93 08/12/16 23:00 74 08/12/16 22:00 78 08/12/16 21:00 82 08/12/16 20:00 82 08/12/16 19:00 98.3 82 18 93/68 95 08/12/16 19:00 77 08/12/16 18:23 71 08/12/16 17:05 71 08/12/16 16:00 71 08/12/16 15:39 77 08/12/16 15:00 97.9 66 18 96/69 97 08/12/16 14:00 62 08/12/16 13:24 60 08/12/16 12:15 60 08/12/16 11:29 97.5 66 18 93/50 96 08/12/16 11:28 62 08/12/16 10:23 91 Nasal Cannula 1.00 08/12/16 10:00 62 08/12/16 09:00 60 08/12/16 08:00 60 I/O 08/12/16 08/12/16 08/12/16 08/13/16 08/13/16 08/13/16 06:59 14:59 22:59 06:59 14:59 22:59 Intake Total 240 ml 895 ml 240 ml Output Total 550 ml 750 ml 400 ml Balance -310 ml 145 ml -160 ml Intake Oral 240 ml 730 ml 240 ml IV Total 165 ml Output Urine Total 550 ml 750 ml 400 ml # Bowel Movements 0 0 Result Diagram: 08/11/16 1739 08/13/16 0550 Imaging Last Impressions Chest X-Ray 08/10/16 1549 Signed Impressions: Service Date/Time: Wednesday, August 10, 2016 16:20 - CONCLUSION: Pacer, compensated cardiomegaly. Petr Lopez MD FACR Renal Ultrasound 08/10/16 0000 Signed Impressions: Service Date/Time: Wednesday, August 10, 2016 20:47 - CONCLUSION: 1. No evidence of hydronephrosis. 2. Increased echogenicity of the renal parenchyma suggestive of chronic medical renal disease. 3. Right lower pole renal cyst measuring 2.3 cm. 4. There is some free fluid in the abdomen. Wil Tuttle MD Objective Remarks GENERAL: This is a well-nourished, well-developed patient, sitting up in the bed , does not appear in acute distress. SKIN: No rashes, ecchymoses or lesions. Cool and dry. HEAD: Atraumatic. Normocephalic. No temporal or scalp tenderness. EYES: Pupils equal round and reactive. Extraocular motions intact. No scleral icterus. No injection or drainage. ENT: Nose without bleeding, purulent drainage or septal hematoma. Throat without erythema, tonsillar hypertrophy or exudate. Uvula midline. Airway patent. NECK: Trachea midline. No JVD or lymphadenopathy. Supple, nontender, no meningeal signs. CARDIOVASCULAR: Regular rate and rhythm without murmurs, gallops, or rubs. RESPIRATORY: Clear to auscultation. Breath sounds equal bilaterally. No wheezes , rales, or rhonchi. GASTROINTESTINAL: Abdomen soft, non-tender, nondistended. No hepato-splenomegaly , or palpable masses. No guarding. MUSCULOSKELETAL: Toes with bluish discoloration noted on admission, discoloration is improving. However right leg with severe pain on palpation. Pulses are weak palpable. 3+ lower extremity edema. No joint tenderness, effusion, or edema noted. No calf tenderness. Negative Homans sign bilaterally. NEUROLOGICAL: Awake and alert. Cranial nerves II through XII intact. Motor and sensory grossly within normal limits. Five out of 5 muscle strength in all muscle groups. Normal speech. 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 Right lower extremity pain ECHO reviewed EF of 30-35%. Regional wall motion abnormalities, akinesia of the apical myocardium with large partially calcified oval thrombus at LV apex measuring 20 mm in longest diameter. Continue heparin drip. Consult cardiology, appreciate recommendations . Patient is in [facility]. Will reconsult vasc surgeon as patient c/o right leg pain and ECHO with large apical LV thrombus. Also patient with MATILDA and CTA is nephrotoxic, nephrology also consulted. Will start coumadin once cleared by vasc surgeon if no interventions planned. Continue heparin drip Restart home medications. Lasix change to IV. However patient with severe CHF and kinetic abnormality of the heart, and has persistent low BP and meds are held 2/2 hypotension Has AICD, says last time was checked a month ago BNP noted elevated 1330. Trending down. Monitor Troponin 0.05 he denies having any chest pain at this time Continue Lasix 40 mg IV twice a day. Hold if low blood pressure Monitor I's and O's , fluid restriction 1200 ml Chest x-ray reviewed and findings discussed with with the emergency room doctor. Pacer compensated cardiomegaly 2D ECHO as above MATILDA: Creatinine 1.96 BUN 30, low GFR 34 on admission. Monitor kidney function. Avoid nephrotoxins if possible. Ultrasound the kidney reviewed, chages consistent with chronic kidney disease. Cyst noted Left lower extremities cold and discolored rated, palpable dorsalis pedis on both feet. Poss PVD. CTA was ordered and then postponed secondary to compromise renal function and further diuresis. We'll -reconsult vascular surgeon, as patient is now complaining of Right LE pain . BPH. Continue home Medications. Hold if low blood pressure COPD without exacerbation restart home medications Hyperlipidemia restart atorvastatin DVT prophylaxis Lovenox Discussed Condition With Patient, nurse DC plan: Pending improvement. 2D ECHO as above Will reconsult vasc surgeon as patient c/o right leg pain and ECHO with large apical LV thrombus. Also patient with MATILDA and CTA is nephrotoxic, nephrology also consulted. Will start coumadin once cleared by vasc surgeon if no interventions planned. Continue heparin drip Halina Aly MD August 13, 2016 07:19
[2016-08-13 07:40] LABS: URINE TOTAL PROTEIN TIMED 26.7 MG/DL
[2016-08-13] MEDS: FOLIC ACID 1 MG TAB PO SCH (08:46)
[2016-08-13] MEDS: CYANOCOBALAMIN 1,000 MCG TAB PO SCH (08:46)
[2016-08-13] MEDS: GABAPENTIN 100 MG CAP PO SCH ×3 (08:46→18:00)
[2016-08-13] MEDS: PARoxetine HCL 20 MG TAB PO SCH (08:46)
[2016-08-13] MEDS: ALLOPURINOL 100 MG TAB PO SCH (08:46)
[2016-08-13] MEDS: DOCUSATE SODIUM 100 MG CAP PO SCH ×2 (08:46→20:53)
[2016-08-13] MEDS: METOPROLOL SUCCINATE 50 MG EXTENDED RELEASE TAB PO SCH (08:49)
[2016-08-13] MEDS: BUDESONIDE-FORMOTEROL 160/4.5 MCG INHALER INH SCH ×2 (08:49→20:55)
[2016-08-13] MEDS: LISINOPRIL 5 MG TAB PO SCH (08:49)
[2016-08-13] MEDS: SODIUM CHLORIDE 0.9% FLUSH 10 ML FLUSH IV FLUSH SCH ×2 (08:49→20:55)
[2016-08-13] MEDS: FUROSEMIDE 40 MG/4 ML VIAL IV PUSH SCH ×2 (08:49→18:00)
[2016-08-13 09:37] LABS: ALBUMIN SPE 3.55 GM/DL (3.50-5.00); ALPHA 1 GLOBULIN 0.31 GM/DL (0.11-0.29); ALPHA 2 GLOBULIN 0.65 GM/DL (0.22-1.00)
[2016-08-13 09:38] LABS: BETA GLOBULINS (SPE) 0.76 GM/DL (0.53-1.03)
[2016-08-13 10:01] LABS: HEPATITIS B SURFACE ANTIBODY 1.3 mIU/mL
--- NOTE | 2016-08-13 12:13 | HHI.NPPN ---
Subjective History of Present Illness This patient is a 70-year-old male with a history of a cardiomyopathy and congestive heart failure status post AICD placement, COPD presenting with a history of increasing shortness of breath, hypotension and increasing lower extremity edema. Initial creatinine level on presentation 1.96. Patient uncertain as to whether or not he was actually taking an NSAID prior to admission. Outpatient medications included lisinopril, furosemide. Patient is followed by the local [facility] "[facility]". Patient has been evaluated by vascular surgery for possible significant peripheral vascular disease. Has been assessed as having an acute episode of gout with plan for follow-up as an outpatient. Cardiology indicated presence of calcified thrombus left ventricular apex. Anticoagulation apparently recommended. (Brittani Solomon) Review of Systems General Constitutional: Fatigue (Brittani Solomon) Cardiovascular Cardiac: Edema (Brittani Solomon) Objective Data Data 08/12/16 08/13/16 18:59 06:59 Intake Total 895 ml 240 ml Output Total 750 ml 400 ml Balance 145 ml -160 ml Intake Oral 730 ml 240 ml IV Total 165 ml Output Urine Total 750 ml 400 ml # Bowel Movements 0 Vital Signs Date Time Temp Pulse Resp B/P Pulse Ox O2 Delivery O2 Flow Rate FiO2 08/13/16 11:00 97.9 85 18 97/63 94 08/13/16 10:23 90 08/13/16 09:08 95 Nasal Cannula 2.00 08/13/16 09:00 67 08/13/16 08:26 81 08/13/16 07:00 78 08/13/16 07:00 97.9 85 18 97/63 94 08/13/16 06:00 78 08/13/16 05:00 77 08/13/16 04:00 74 08/13/16 03:00 98.3 78 18 103/67 95 08/13/16 03:00 72 08/13/16 02:00 72 08/13/16 01:00 71 08/13/16 00:00 62 08/12/16 23:00 98.3 75 18 83/53 93 08/12/16 23:00 74 08/12/16 22:00 78 08/12/16 21:00 82 08/12/16 20:00 82 08/12/16 19:00 98.3 82 18 93/68 95 08/12/16 19:00 77 08/12/16 18:23 71 08/12/16 17:05 71 08/12/16 16:00 71 08/12/16 15:39 77 08/12/16 15:00 97.9 66 18 96/69 97 08/12/16 14:00 62 08/12/16 13:24 60 08/12/16 12:15 60 (Brittani Solomon) -: 08/11/16 1739 08/13/16 0550 Imaging Last Impressions Chest X-Ray 08/10/16 1549 Signed Impressions: Service Date/Time: Wednesday, August 10, 2016 16:20 - CONCLUSION: Pacer, compensated cardiomegaly. Petr Lopez MD FACR Renal Ultrasound 08/10/16 0000 Signed Impressions: Service Date/Time: Wednesday, August 10, 2016 20:47 - CONCLUSION: 1. No evidence of hydronephrosis. 2. Increased echogenicity of the renal parenchyma suggestive of chronic medical renal disease. 3. Right lower pole renal cyst measuring 2.3 cm. 4. There is some free fluid in the abdomen. Wil Tuttle MD Medication Review Current Medications Medications (Trade) Dose Ordered Sig/Andrés Route Start Time Stop Time Status Last Admin (NS Flush) 2 ml UNSCH PRN IV FLUSH 08/10/16 17:45 (NS Flush) 2 ml BID IV FLUSH 08/10/16 21:00 08/13/16 08:49 (Tylenol) 650 mg Q4H PRN PO 08/10/16 17:45 08/12/16 20:47 (Zofran Inj) 4 mg Q6H PRN IVP 08/10/16 17:45 (Milk Of Magnesia Liq) 30 ml Q12H PRN PO 08/10/16 17:45 (Lasix Inj) 40 mg BID@,18 IV PUSH 08/10/16 18:00 08/11/16 17:18 (Ventolin Hfa Inh) 2 puff QID PRN INH 08/10/16 20:15 (Zyloprim) 100 mg DAILY PO 08/11/16 09:00 08/13/16 08:46 (Lipitor) 10 mg HS PO 08/10/16 21:00 08/12/16 20:47 (Symbicort 160-4.5 Inh) 2 puff Q12HR INH 08/10/16 21:00 08/13/16 08:49 (Vitamin B12) 1,000 mcg DAILY PO 08/11/16 09:00 08/13/16 08:46 (Colace) 100 mg BID PO 08/10/16 21:00 08/13/16 08:46 (Folate) 1 mg DAILY PO 08/11/16 09:00 08/13/16 08:46 (Neurontin) 100 mg TID PO 08/11/16 09:00 08/13/16 08:46 (Paxil) 20 mg DAILY PO 08/11/16 09:00 08/13/16 08:46 (Flomax) 0.4 mg HS PO 08/10/16 21:00 08/12/16 20:47 (Prinivil) 2.5 mg DAILY PO 08/11/16 09:00 08/11/16 11:19 (Toprol Xl) 50 mg DAILY PO 08/11/16 09:00 08/11/16 11:19 (SEROquel) 400 mg HS PO 08/10/16 21:00 08/12/16 20:47 Miscellaneous 1 ea 1 ea UNSCH PRN OTHER 08/10/16 20:30 (Heparin-D5W Inj) 250 ml @ 0 mls/hr TITRATE IV 08/11/16 16:30 08/12/16 21:30 (Brittani Solomon) Physical Exam General Appearance: No Acute Distress, Comfortable (Brittani Solomon) Eyes Eye Exam: Pupils Equal, Pupils Reactive (Brittani Solomon) Throat Throat Exam: Oral Mucosa [place] & Moist (Brittani Solomon) Pulmonary Resp Exam: Clear Bilaterally, Breath Sounds Equal (Brittani Solomon) Cardiology CV Exam: Regular, Normal Sinus Rhythm (Brittani Solomon) Gastrointestinal/Abdomen GI Exam: Soft, Non-Tender (Brittani Solomon) Integumentary Skin Exam: Clear, Warm (Brittani Solomon) Extremeties Extremities Exam: Moderate Edema Extremeties Remarks 2+ pitting edema up to knees (Brittani Solomon) Neurologic Neuro Exam: Alert, Awake (Brittani Solomon) Psychiatric Psych Exam: Appropriate Responses (Brittani Solomon) Assessment/Plan Problem List: (1) Acute kidney insufficiency Plan: Suspect patient does have an acute component of acute renal insufficiency possibly related to cardiorenal syndrome and relative hypotension. Uncertain as if the patient was actually using naproxen prior to presentation. If so this may contribute also to the patient's renal insufficiency and cardiac decompensation. Patient was counseled regarding potential adverse effects of using NSAIDs for analgesia in the setting of his congestive heart failure and probable CKD. SCr improved with diuretics. Await results of additional screening labs. Continue diuresis as ordered. Medications should be adjusted for the patient's estimated GFR if clinically indicated. Avoid agents with significant potential for nephrotoxicity possible including NSAIDs for analgesia, iodine contrast agents. Gadolinium is contraindicated if the GFR is below 30. (2) CKD (chronic kidney disease) stage 3, GFR 30-59 ml/min Plan: Suspected based on renal ultrasound findings however baseline renal indices not available to me. We'll try to obtain previous results from the [facility] i.e. blue team. (3) CHF (congestive heart failure) Plan: Continue diuretic therapy as long as tolerated. Monitor I's and O's and volume status. (Brittani Solomon) Plan The exam, history, and the medical decision-making described in the above note were completed with the assistance of the PA-C. I reviewed and agree with the findings presented. (Aditi Mercado MD) Problem Qualifiers (1) CHF (congestive heart failure): Qualified Code: I50.9 - Congestive heart failure, unspecified congestive heart failure chronicity, unspecified congestive heart failure type Brittani Solomon August 13, 2016 12:13 Aditi Mercado MD Oct 02, 2016 13:29
--- NOTE | 2016-08-13 14:19 | PD.CARD.PN ---
Subjective Subjective Remarks asleep in nad Objective Vital Signs / I&O Vital Signs Date Time Temp Pulse Resp B/P Pulse Ox O2 Delivery O2 Flow Rate FiO2 08/13/16 12:19 83 08/13/16 11:00 97.9 85 18 97/63 94 08/13/16 11:00 78 08/13/16 10:23 90 08/13/16 09:08 95 Nasal Cannula 2.00 08/13/16 09:00 67 08/13/16 08:26 81 08/13/16 07:00 78 08/13/16 07:00 97.9 85 18 97/63 94 08/13/16 06:00 78 08/13/16 05:00 77 08/13/16 04:00 74 08/13/16 03:00 98.3 78 18 103/67 95 08/13/16 03:00 72 08/13/16 02:00 72 08/13/16 01:00 71 08/13/16 00:00 62 08/12/16 23:00 98.3 75 18 83/53 93 08/12/16 23:00 74 08/12/16 22:00 78 08/12/16 21:00 82 08/12/16 20:00 82 08/12/16 19:00 98.3 82 18 93/68 95 08/12/16 19:00 77 08/12/16 18:23 71 08/12/16 17:05 71 08/12/16 16:00 71 08/12/16 15:39 77 08/12/16 15:00 97.9 66 18 96/69 97 I/O 08/12/16 08/12/16 08/12/16 08/13/16 08/13/16 08/13/16 07:00 15:00 23:00 07:00 15:00 23:00 Intake Total 240 ml 895 ml 240 ml Output Total 550 ml 750 ml 400 ml Balance -310 ml 145 ml -160 ml Intake Oral 240 ml 730 ml 240 ml IV Total 165 ml Output Urine Total 550 ml 750 ml 400 ml # Bowel Movements 0 0 Physical Exam GENERAL: SKIN: Warm and dry. HEAD: Normocephalic. EYES: No scleral icterus. No injection or drainage. NECK: Supple, trachea midline. No JVD or lymphadenopathy. CARDIOVASCULAR: Regular rate and rhythm without murmurs, gallops, or rubs. RESPIRATORY: Breath sounds equal bilaterally. No accessory muscle use. GASTROINTESTINAL: Abdomen soft, non-tender, nondistended. MUSCULOSKELETAL: No cyanosis, or edema. BACK: Nontender without obvious deformity. No CVA tenderness. Laboratory Laboratory Tests Test 08/12/16 08/12/16 08/13/16 17:02 18:30 05:50 Activated Partial 68.1 SEC 43.2 SEC Thromboplast Time Urine Color YELLOW Urine Turbidity HAZY Urine pH 6.0 Urine Specific [place] 1.020 Urine Protein TRACE mg/dL Urine Glucose (UA) NEG mg/dL Urine Ketones NEG mg/dL Urine Occult Blood MOD Urine Nitrite NEG Urine Bilirubin NEG Urine Urobilinogen 4.0 MG/DL Urine Leukocyte Esterase LARGE Urine RBC 17 /hpf Urine WBC 115 /hpf Urine WBC Clumps FEW Urine Squamous Epithelial <1 /hpf Cells Urine Hyaline Casts 1 /lpf Urine Mucus FEW /lpf Microscopic Urinalysis Comment CATH Urine Eosinophils 0-2 /HPF Sodium Level 139 MEQ/L Potassium Level 3.2 MEQ/L Chloride Level 99 MEQ/L Carbon Dioxide Level 32.5 MEQ/L Anion Gap 8 MEQ/L Blood Urea Nitrogen 23 MG/DL Creatinine 1.30 MG/DL Estimat Glomerular Filtration 55 ML/MIN Rate Random Glucose 83 MG/DL Calcium Level 8.3 MG/DL Phosphorus Level 3.4 MG/DL Total Protein 6.2 GM/DL Albumin 3.55 GM/DL Albumin/Globulin Ratio 1.34 Xicqm-6-Lizfsczrv 0.31 GM/DL Bbgnk-4-Okbjljurn 0.65 GM/DL Beta Globulins 0.76 GM/DL Gamma Globulins 0.93 GM/DL Parathyroid Hormone (Intact) 49.8 PG/ML Complement C3 87 MG/DL Complement C4 21 MG/DL Hepatitis B Surface Antibody, 1.3 mIU/mL Quant Hepatitis C Antibody NEGATIVE Assessment and Plan Problem List: (1) CHF (congestive heart failure) (2) Acute kidney insufficiency (3) CKD (chronic kidney disease) stage 3, GFR 30-59 ml/min (4) LV (left ventricular) mural thrombus without PR Assessment and Plan 1.) Cardiomyopathy/chf - continue diuresis, lopressor, altace, f/u bnp 2.) LV thrombus - f/u vasc surg rec, start coumadin if/when clear from vasc surg standpoint, continue heparin Problem Qualifiers (1) CHF (congestive heart failure): Qualified Code: I50.9 - Congestive heart failure, unspecified congestive heart failure chronicity, unspecified congestive heart failure type Harshal Jennings MD August 13, 2016 14:18
--- NOTE | 2016-08-13 15:52 | PD.VS.CON ---
History of Present Illness Chief Complaint: Right leg pain and swelling Pt c/o pain from right knee to ankle Consult Requested by: Dr. Aly History of Present Illness as written 70 yo M past medical history of systolic congestive heart failure with AICD, hyperlipidemia, BPH, COPD, depression/anxiety arrives [facility] for evaluation of dyspnea on exertion and orthopnea for the past several days. He states he has been taking his Lasix as per usual. He denies the patient had a fall today at home. Denies pain or injury from the fall. Evidently he's been falling somewhat frequently at home. He suggested that his medications may need to be adjusted. Additionally he reports feeling somewhat dizzy. To me he states that he might have lost consciousness however he is not sure. He was seen at the [facility] this morning and was sent here for further investigation. The patient also reports his blood pressure is getting low at times. He denies having cough at this time. He is using multiple pillows at home. He has noted that swelling of his legs has increased over the past 2 days. He is getting more tired. He doesn't use any oxygen at home. No fever or chills. Denies nausea, vomiting. He says he used to have constipation from Brady. He takes Brady for chronic back pain. (Chana Hernández) Past/Family/Social History Past Medical History Systolic congestive heart failure with AICD, hyperlipidemia, Depression Anxiety BPH COPD Hyperlipidemia, Past Surgical History AICD placement 2015 Social History Pt denies smoking Pt does not drink alcohol Family History Mom CHF, heart problems Dad lung problems (Chana Hernández) Home Medications Reported Medications Hydrocodone-Acetaminophen 7.5-325 mg Tab1 Tab PO Q4H PRN (PAIN) Ref 0 08/11/16 Naproxen 500 Mg [id number] Mg PO BID #60 TAB Ref 0 08/10/16 Tamsulosin 0.4 Mg Cap0.4 Mg PO HS #30 CAP Ref 0 08/10/16 Quetiapine (Seroquel)400 Mg [id number] Mg PO HS #30 TAB Ref 0 08/10/16 Paroxetine 40 Mg Tab20 Mg PO DAILY #30 TAB Ref 0 08/10/16 Metoprolol Succinate ER 24 HR 100 Mg Tab50 Mg PO DAILY #30 TAB Ref 0 Hold if SBP <90 08/10/16 Lisinopril 2.5 Mg Tab2.5 Mg PO DAILY #30 TAB Ref 0 Hold if SBP <90 08/10/16 Gabapentin 100 Mg [id number] Mg PO TID #90 CAP Ref 0 08/10/16 Furosemide (Lasix)20 Mg Tab20 Mg PO DAILY #30 TAB Ref 0 08/10/16 Folic Acid (Folate)1 Mg Tab1 Mg PO DAILY Ref 0 08/10/16 Docusate Sodium (Colace)100 Mg [id number] Mg PO BID #60 CAP Ref 0 08/10/16 Cyanocobalamin (Vitamin B-12)1,000 Mcg Tab1,000 Mcg PO DAILY #1 BOTTLE Ref 0 08/10/16 Budesonide-Formoterol Inh (Symbicort Inh)160-4.5 Mcg/Act Aero2 Puff INH Q12HR # 1 INHALER Ref 0 08/10/16 Atorvastatin 20 Mg Tab10 Mg PO HS #30 TAB Ref 0 08/10/16 Allopurinol 100 Mg [id number] Mg PO DAILY #30 TAB Ref 0 08/10/16 Albuterol 18 GM Inh (Ventolin Hfa 18 GM Inh)90 Mcg/Act Aer2 Puff INH QID PRN ( SHORTNESS OF BREATH) #1 INHALER Ref 0 08/10/16 Acetaminophen (Tylenol)325 Mg [id number] Mg PO Q6H PRN (PAIN 1-10 AND/OR FEVER >101F ) Ref 0 08/10/16 Coded Allergies: No Known Allergies (Unverified , 08/10/16) Review of Systems Musculoskeletal: COMPLAINS OF: Joint pain, Muscle aches, Stiffness, Joint Swelling, Back pain, Neck pain (Chana Hernández) Physical Exam Vitals/I&O Date Time Temp Pulse Resp B/P Pulse Ox O2 Delivery O2 Flow Rate FiO2 08/13/16 15:35 97.8 78 18 101/72 96 08/13/16 15:35 75 08/13/16 14:44 82 08/13/16 13:00 81 08/13/16 12:19 83 08/13/16 11:00 97.9 85 18 97/63 94 08/13/16 11:00 78 08/13/16 10:23 90 08/13/16 09:08 95 Nasal Cannula 2.00 08/13/16 09:00 67 08/13/16 08:26 81 08/13/16 07:00 78 08/13/16 07:00 97.9 85 18 97/63 94 08/13/16 06:00 78 08/13/16 05:00 77 08/13/16 04:00 74 08/13/16 03:00 98.3 78 18 103/67 95 08/13/16 03:00 72 08/13/16 02:00 72 08/13/16 01:00 71 08/13/16 00:00 62 08/12/16 23:00 98.3 75 18 83/53 93 08/12/16 23:00 74 08/12/16 22:00 78 08/12/16 21:00 82 08/12/16 20:00 82 08/12/16 19:00 98.3 82 18 93/68 95 08/12/16 19:00 77 08/12/16 18:23 71 08/12/16 17:05 71 08/12/16 16:00 71 08/12/16 15:39 77 Neuro: CN 2-12 intact Pt alert and oriented Heart: RRR Lungs: CTA Abdomen: S/NT Vascular: Bilat strong palpable PT/DP/femoral Bilat feet warm to touch with motor intact Cap refill <3 sec Extremities: RLE swollen R great toe swollen with ecchymosis between 1st and 2nd toe (Chana Hernández) Laboratory Tests Test 08/12/16 08/12/16 08/13/16 17:02 18:30 05:50 Activated Partial 68.1 43.2 Thromboplast Time Urine Color YELLOW Urine Turbidity HAZY Urine pH 6.0 Urine Specific [place] 1.020 Urine Protein TRACE Urine Glucose (UA) NEG Urine Ketones NEG Urine Occult Blood MOD Urine Nitrite NEG Urine Bilirubin NEG Urine Urobilinogen 4.0 Urine Leukocyte Esterase LARGE Urine RBC 17 Urine WBC 115 Urine WBC Clumps FEW Urine Squamous Epithelial <1 Cells Urine Hyaline Casts 1 Urine Mucus FEW Microscopic Urinalysis Comment CATH Urine Eosinophils 0-2 Sodium Level 139 Potassium Level 3.2 Chloride Level 99 Carbon Dioxide Level 32.5 Anion Gap 8 Blood Urea Nitrogen 23 Creatinine 1.30 Estimat Glomerular Filtration 55 Rate Random Glucose 83 Calcium Level 8.3 Phosphorus Level 3.4 Total Protein 6.2 Albumin 3.55 Albumin/Globulin Ratio 1.34 Iicpp-4-Bbfcrndbr 0.31 Qgveb-2-Sbdhtcfqp 0.65 Beta Globulins 0.76 Gamma Globulins 0.93 Parathyroid Hormone (Intact) 49.8 Complement C3 87 Complement C4 21 Hepatitis B Surface Antibody, 1.3 Quant Hepatitis C Antibody NEGATIVE (Chana Hernández) Assessment and Plan Assessment: (1) LV (left ventricular) mural thrombus without GA Status: Acute Plan Plan No surgical intervention needed at this time Recommend aggressive anticoagulation therapy Chana HODGE [facility] [phone] (Chana Hernández) Plan I agree with above assessment and plan. Patient with right leg and mostly foot pain for about 2 weeks.... He has bounding DP pulses bilaterally. Agree with initial vascular consult. Leonardo Araiza DO, FACS [employer] Artist of Vascular Surgery [facility] (Leonardo Araiza DO) Chaan Hernández August 13, 2016 15:52 Leonardo Araiza DO August 13, 2016 16:36
[2016-08-13 19:22] LABS: APTT (PATIENT) 32.7 SEC (24.3-30.1)
[2016-08-13] MEDS: ATORVASTATIN 20 MG TAB PO SCH (20:53)
[2016-08-13] MEDS: TAMSULOSIN HCL 0.4 MG CAP PO SCH (20:53)
[2016-08-13] MEDS: QUEtiapine FUMARATE 200 MG TAB PO SCH (20:53)
[2016-08-13] MEDS: ACETAMINOPHEN 325 MG TAB PO PRN (20:54)
[2016-08-13] MEDS: HEPARIN-D5W INJ 250 ML IV SCH (23:56)
[2016-08-14] VITALS (27 sets, daily range): BP systolic 104–131; BP diastolic 68–74; PULSE 72–115; RESP 17–20; TEMP 98–98.5; O2SAT 91–97
[2016-08-14 04:14] LABS: HEMATOCRIT 34.4 % (39.0-51.0); MEAN CORPUSCULAR HEMOGLOBIN 25.9 PG (27.0-34.0); MEAN CORPUSCULAR HGB CONC 32.8 % (32.0-36.0); PLATELET COUNT 165 TH/MM3 (150-450); RED BLOOD COUNT 4.35 MIL/MM3 (4.50-5.90); RED CELL DISTRIBUTION WIDTH 16.3 % (11.6-17.2); REVIEW FLAG FINAL; WHITE BLOOD COUNT 6.8 TH/MM3 (4.0-11.0)
[2016-08-14 04:27] LABS: APTT (PATIENT) 80.2 SEC (24.3-30.1)
[2016-08-14 04:46] LABS: BICARBONATE 34.3 MEQ/L (21.0-32.0); POTASSIUM 3.2 MEQ/L (3.5-5.1)
--- NOTE | 2016-08-14 07:34 | HHI.PR ---
Subjective Remarks Says he has less pain in his right leg. Feels sob and weak. Has no cough. No fever or chills. No n/v/d/c. No n/v/d/c. Objective Vitals Vital Signs Date Time Temp Pulse Resp B/P Pulse Ox O2 Delivery O2 Flow Rate FiO2 08/14/16 06:00 88 08/14/16 05:00 76 08/14/16 04:00 72 08/14/16 03:20 98.5 80 18 106/71 97 08/14/16 03:20 97 Nasal Cannula 2.00 08/14/16 03:00 73 08/14/16 02:00 73 08/14/16 01:00 72 08/14/16 00:00 74 08/13/16 23:10 98.0 81 18 102/70 91 08/13/16 23:10 91 Nasal Cannula 2.00 08/13/16 23:00 77 08/13/16 22:00 83 08/13/16 21:00 90 08/13/16 20:00 90 08/13/16 19:45 98.8 92 20 112/73 95 08/13/16 19:45 95 Room Air 08/13/16 19:40 95 2.00 08/13/16 19:00 90 08/13/16 18:10 87 08/13/16 17:00 89 08/13/16 16:00 90 08/13/16 15:35 97.8 78 18 101/72 96 08/13/16 15:35 75 08/13/16 14:44 82 08/13/16 13:00 81 08/13/16 12:19 83 08/13/16 11:00 97.9 85 18 97/63 94 08/13/16 11:00 78 08/13/16 10:23 90 08/13/16 09:08 95 Nasal Cannula 2.00 08/13/16 09:00 67 08/13/16 08:26 81 I/O 08/13/16 08/13/16 08/13/16 08/14/16 08/14/16 08/14/16 07:00 15:00 23:00 07:00 15:00 23:00 Intake Total 240 ml 900 ml 383 ml Output Total 400 ml 400 ml 500 ml Balance -160 ml 500 ml -117 ml Intake Oral 240 ml 720 ml 240 ml IV Total 180 ml 143 ml Output Urine Total 400 ml 400 ml 500 ml # Bowel Movements 0 1 Result Diagram: 08/14/16 0345 08/14/16 0345 Imaging Last Impressions Chest X-Ray 08/10/16 1549 Signed Impressions: Service Date/Time: Wednesday, August 10, 2016 16:20 - CONCLUSION: Pacer, compensated cardiomegaly. Petr Lopez MD FACR Renal Ultrasound 08/10/16 0000 Signed Impressions: Service Date/Time: Wednesday, August 10, 2016 20:47 - CONCLUSION: 1. No evidence of hydronephrosis. 2. Increased echogenicity of the renal parenchyma suggestive of chronic medical renal disease. 3. Right lower pole renal cyst measuring 2.3 cm. 4. There is some free fluid in the abdomen. Wil Tuttle MD Objective Remarks GENERAL: This is a well-nourished, well-developed patient, sitting up in the bed , does not appear in acute distress. SKIN: No rashes, ecchymoses or lesions. Cool and dry. HEAD: Atraumatic. Normocephalic. No temporal or scalp tenderness. EYES: Pupils equal round and reactive. Extraocular motions intact. No scleral icterus. No injection or drainage. ENT: Nose without bleeding, purulent drainage or septal hematoma. Throat without erythema, tonsillar hypertrophy or exudate. Uvula midline. Airway patent. NECK: Trachea midline. No JVD or lymphadenopathy. Supple, nontender, no meningeal signs. CARDIOVASCULAR: Regular rate and rhythm without murmurs, gallops, or rubs. RESPIRATORY: Clear to auscultation. Breath sounds equal bilaterally. No wheezes , rales, or rhonchi. GASTROINTESTINAL: Abdomen soft, non-tender, nondistended. No hepato-splenomegaly , or palpable masses. No guarding. MUSCULOSKELETAL: Toes with bluish discoloration noted on admission, discoloration is improving. However right leg with severe pain on palpation. Pulses are weak palpable. 3+ lower extremity edema. No joint tenderness, effusion, or edema noted. No calf tenderness. Negative Homans sign bilaterally. NEUROLOGICAL: Awake and alert. Cranial nerves II through XII intact. Motor and sensory grossly within normal limits. Five out of 5 muscle strength in all muscle groups. Normal speech. 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 Right lower extremity pain ECHO reviewed EF of 30-35%. Regional wall motion abnormalities, akinesia of the apical myocardium with large partially calcified oval thrombus at LV apex measuring 20 mm in longest diameter. Continue heparin drip. Consult cardiology, appreciate recommendations . Patient is in [facility]. Will reconsult vasc surgeon as patient c/o right leg pain and ECHO with large apical LV thrombus. Also patient with MATILDA and CTA is nephrotoxic, nephrology also consulted. Will start coumadin once cleared by [facility] surgeon if no interventions planned. Continue heparin drip Restart home medications. Lasix change to IV. However patient with severe CHF and kinetic abnormality of the heart, and has persistent low BP and meds are held 2/2 hypotension Has AICD, says last time was checked a month ago BNP noted elevated 1330. Trending down. Monitor Troponin 0.05 he denies having any chest pain at this time Continue Lasix 40 mg IV twice a day. Hold if low blood pressure Monitor I's and O's , fluid restriction 1200 ml Chest x-ray reviewed and findings discussed with with the emergency room doctor. Pacer compensated cardiomegaly 2D ECHO as above MATILDA: Creatinine 1.96 BUN 30, low GFR 34 on admission. Monitor kidney function. Avoid nephrotoxins if possible. Ultrasound the kidney reviewed, chages consistent with chronic kidney disease. Cyst noted Left lower extremities cold and discolored rated, palpable dorsalis pedis on both feet. Poss PVD. CTA was ordered and then postponed secondary to compromise renal function and further diuresis. We'll -reconsult vascular surgeon, as patient is now complaining of Right LE pain . BPH. Continue home Medications. Hold if low blood pressure COPD without exacerbation restart home medications Hyperlipidemia restart atorvastatin DVT prophylaxis Lovenox Discussed Condition With Patient, nurse, cardiology Dr Ospina, [facility] surgery team DC plan: Pending improvement. 2D ECHO as above Reconsult vas surgeon as patient c/o right leg pain and ECHO with large apical LV thrombus. Also patient with MATILDA and CTA is nephrotoxic, nephrology also consulted. Spoke with [facility] surgery, no plan for any further tests, can start coumadin Start coumadin, pharmacy for coumadin, continue heparin drip bridge . Halina Aly MD August 14, 2016 07:34
[2016-08-14] MEDS: METOPROLOL SUCCINATE 50 MG EXTENDED RELEASE TAB PO SCH (09:00)
[2016-08-14] MEDS: PARoxetine HCL 20 MG TAB PO SCH (09:00)
[2016-08-14] MEDS: LISINOPRIL 5 MG TAB PO SCH (09:00)
[2016-08-14] MEDS: FUROSEMIDE 40 MG/4 ML VIAL IV PUSH SCH ×2 (09:00→17:43)
[2016-08-14] MEDS: SODIUM CHLORIDE 0.9% FLUSH 10 ML FLUSH IV FLUSH SCH (09:02)
[2016-08-14] MEDS: BUDESONIDE-FORMOTEROL 160/4.5 MCG INHALER INH SCH ×2 (09:02→20:03)
[2016-08-14] MEDS: ALLOPURINOL 100 MG TAB PO SCH (09:03)
[2016-08-14] MEDS: FOLIC ACID 1 MG TAB PO SCH (09:03)
[2016-08-14] MEDS: CYANOCOBALAMIN 1,000 MCG TAB PO SCH (09:03)
[2016-08-14] MEDS: DOCUSATE SODIUM 100 MG CAP PO SCH ×2 (09:04→20:04)
[2016-08-14] MEDS: GABAPENTIN 100 MG CAP PO SCH ×3 (09:04→17:42)
[2016-08-14 11:00] LABS: INTERNATIONAL NORMALIZED RATIO 1.2 RATIO
[2016-08-14 11:05] LABS: APTT (PATIENT) 62.3 SEC (24.3-30.1)
[2016-08-14] MEDS ORDERED: POTASSIUM CHLORIDE 10 MEQ CONTROLLED RELEASE TAB PO ONE (12:00)
[2016-08-14] MEDS: HEPARIN-D5W INJ 250 ML IV SCH (14:08)
--- NOTE | 2016-08-14 14:59 | PD.CARD.PN ---
Subjective Subjective Remarks alert in nad Objective Vital Signs / I&O Vital Signs Date Time Temp Pulse Resp B/P Pulse Ox O2 Delivery O2 Flow Rate FiO2 08/14/16 14:00 98 08/14/16 13:00 92 08/14/16 12:11 93 08/14/16 11:16 97 Nasal Cannula 2.00 08/14/16 11:00 99 08/14/16 11:00 95 Room Air 08/14/16 11:00 98.0 94 18 106/68 95 08/14/16 10:00 86 08/14/16 09:00 78 08/14/16 08:00 80 08/14/16 07:00 84 08/14/16 07:00 96 Room Air 08/14/16 07:00 98.0 85 17 104/69 96 08/14/16 06:00 88 08/14/16 05:00 76 08/14/16 04:00 72 08/14/16 03:20 98.5 80 18 106/71 97 08/14/16 03:20 97 Nasal Cannula 2.00 08/14/16 03:00 73 08/14/16 02:00 73 08/14/16 01:00 72 08/14/16 00:00 74 08/13/16 23:10 98.0 81 18 102/70 91 08/13/16 23:10 91 Nasal Cannula 2.00 08/13/16 23:00 77 08/13/16 22:00 83 08/13/16 21:00 90 08/13/16 20:00 90 08/13/16 19:45 98.8 92 20 112/73 95 08/13/16 19:45 95 Room Air 08/13/16 19:40 95 2.00 08/13/16 19:00 90 08/13/16 18:10 87 08/13/16 17:00 89 08/13/16 16:00 90 08/13/16 15:35 97.8 78 18 101/72 96 08/13/16 15:35 75 I/O 08/13/16 08/13/16 08/13/16 08/14/16 08/14/16 08/14/16 07:00 15:00 23:00 07:00 15:00 23:00 Intake Total 240 ml 900 ml 383 ml Output Total 400 ml 400 ml 500 ml Balance -160 ml 500 ml -117 ml Intake Oral 240 ml 720 ml 240 ml IV Total 180 ml 143 ml Output Urine Total 400 ml 400 ml 500 ml # Bowel Movements 0 1 Physical Exam GENERAL: SKIN: Warm and dry. HEAD: Normocephalic. EYES: No scleral icterus. No injection or drainage. NECK: Supple, trachea midline. No JVD or lymphadenopathy. CARDIOVASCULAR: Regular rate and rhythm without murmurs, gallops, or rubs. RESPIRATORY: Breath sounds equal bilaterally. No accessory muscle use. GASTROINTESTINAL: Abdomen soft, non-tender, nondistended. MUSCULOSKELETAL: No cyanosis, or edema. BACK: Nontender without obvious deformity. No CVA tenderness. Laboratory Laboratory Tests Test 08/13/16 08/14/16 08/14/16 19:00 03:45 10:18 Activated Partial 32.7 SEC 80.2 SEC 62.3 SEC Thromboplast Time White Blood Count 6.8 TH/MM3 Red Blood Count 4.35 MIL/MM3 Hemoglobin 11.3 GM/DL Hematocrit 34.4 % Mean Corpuscular Volume 79.0 FL Mean Corpuscular Hemoglobin 25.9 PG Mean Corpuscular Hemoglobin 32.8 % Concent Red Cell Distribution Width 16.3 % Platelet Count 165 TH/MM3 Mean Platelet Volume 8.0 FL Sodium Level 140 MEQ/L Potassium Level 3.2 MEQ/L Chloride Level 100 MEQ/L Carbon Dioxide Level 34.3 MEQ/L Anion Gap 6 MEQ/L Blood Urea Nitrogen 18 MG/DL Creatinine 1.09 MG/DL Estimat Glomerular Filtration 67 ML/MIN Rate Random Glucose 91 MG/DL Calcium Level 8.1 MG/DL Phosphorus Level 3.3 MG/DL B-Type Natriuretic Peptide 778 PG/ML Albumin 2.5 GM/DL Hepatitis B Surface Antigen NEGATIVE Prothrombin Time 13.0 SEC Prothromb Time International 1.2 RATIO Ratio Assessment and Plan Problem List: (1) CHF (congestive heart failure) (2) Acute kidney insufficiency (3) CKD (chronic kidney disease) stage 3, GFR 30-59 ml/min (4) LV (left ventricular) mural thrombus without [place] Assessment and Plan 1.) Cardiomyopathy/chf - continue diuresis, lopressor, altace, f/u bnp 2.) LV thrombus - f/u vasc surg rec, on coumadin, continue heparin until inr>2.0 Problem Qualifiers (1) CHF (congestive heart failure): Qualified Code: I50.9 - Congestive heart failure, unspecified congestive heart failure chronicity, unspecified congestive heart failure type Harshal Jennings MD August 14, 2016 14:59
--- NOTE | 2016-08-14 15:01 | HHI.NPPN ---
Subjective History of Present Illness This patient is a 70-year-old male with a history of a cardiomyopathy and congestive heart failure status post AICD placement, COPD presenting with a history of increasing shortness of breath, hypotension and increasing lower extremity edema. Initial creatinine level on presentation 1.96. Patient uncertain as to whether or not he was actually taking an NSAID prior to admission. Outpatient medications included lisinopril, furosemide. Patient is followed by the local [facility] "Blue Team". Patient has been evaluated by vascular surgery for possible significant peripheral vascular disease. Has been assessed as having an acute episode of gout with plan for follow-up as an outpatient. Cardiology indicated presence of calcified thrombus left ventricular apex. Anticoagulation apparently recommended. Interval History Patient resting comfortably in bed. No verbal complaints. Review of Systems General Constitutional: Fatigue Cardiovascular Cardiac: Edema Objective Data Data 08/13/16 08/14/16 18:59 06:59 Intake Total 900 ml 383 ml Output Total 400 ml 500 ml Balance 500 ml -117 ml Intake Oral 720 ml 240 ml IV Total 180 ml 143 ml Output Urine Total 400 ml 500 ml # Bowel Movements 0 1 Vital Signs Date Time Temp Pulse Resp B/P Pulse Ox O2 Delivery O2 Flow Rate FiO2 08/14/16 14:00 98 08/14/16 13:00 92 08/14/16 12:11 93 08/14/16 11:16 97 Nasal Cannula 2.00 08/14/16 11:00 99 08/14/16 11:00 95 Room Air 08/14/16 11:00 98.0 94 18 106/68 95 08/14/16 10:00 86 08/14/16 09:00 78 08/14/16 08:00 80 08/14/16 07:00 84 08/14/16 07:00 96 Room Air 08/14/16 07:00 98.0 85 17 104/69 96 08/14/16 06:00 88 08/14/16 05:00 76 08/14/16 04:00 72 08/14/16 03:20 98.5 80 18 106/71 97 08/14/16 03:20 97 Nasal Cannula 2.00 08/14/16 03:00 73 08/14/16 02:00 73 08/14/16 01:00 72 08/14/16 00:00 74 08/13/16 23:10 98.0 81 18 102/70 91 08/13/16 23:10 91 Nasal Cannula 2.00 08/13/16 23:00 77 08/13/16 22:00 83 08/13/16 21:00 90 08/13/16 20:00 90 08/13/16 19:45 98.8 92 20 112/73 95 08/13/16 19:45 95 Room Air 08/13/16 19:40 95 2.00 08/13/16 19:00 90 08/13/16 18:10 87 08/13/16 17:00 89 08/13/16 16:00 90 08/13/16 15:35 97.8 78 18 101/72 96 08/13/16 15:35 75 -: 08/14/16 0345 08/14/16 0345 Physical Exam General Appearance: No Acute Distress, Comfortable Eyes Eye Exam: Pupils Equal, Pupils Reactive Throat Throat Exam: Oral Mucosa [place] & Moist Pulmonary Resp Exam: Clear Bilaterally, Breath Sounds Equal Cardiology CV Exam: Regular, Normal Sinus Rhythm Gastrointestinal/Abdomen GI Exam: Soft, Non-Tender Integumentary Skin Exam: Clear, Warm Extremeties Extremities Exam: Moderate Edema Neurologic Neuro Exam: Alert, Awake Psychiatric Psych Exam: Appropriate Responses Assessment/Plan Discussed Condition With: Patient Problem List: (1) Acute kidney insufficiency Plan: Suspect patient does have an acute component of acute renal insufficiency possibly related to cardiorenal syndrome and relative hypotension. Uncertain as if the patient was actually using naproxen prior to presentation. If so this may contribute also to the patient's renal insufficiency and cardiac decompensation. Patient was counseled regarding potential adverse effects of using NSAIDs for analgesia in the setting of his congestive heart failure and probable CKD. Patient's creatinine level now within normal range. Volume status much improved. Renal ultrasound does suggest some degree of chronic kidney disease with increased echogenicity. Reiterated the importance of avoiding chronic NSAID usage for analgesia to the patient. At this point in time I will sign off. Agree with continued diuresis for the present. His volume status is much improved. He does have a history of cardiomyopathy. Please recall if needed. (2) CKD (chronic kidney disease) stage 3, GFR 30-59 ml/min Plan: Suspected based on renal ultrasound findings however baseline renal indices not available to me. We'll try to obtain previous results from the [facility] i.e. blue team. (3) CHF (congestive heart failure) Plan: Continue diuretic therapy as long as tolerated. Monitor I's and O's and volume status. (4) Vitamin D deficiency Plan: Vitamin D as ordered. Patient counseled regarding need for the vitamin D supplementation post discharge. Problem Qualifiers (1) CHF (congestive heart failure): Qualified Code: I50.9 - Congestive heart failure, unspecified congestive heart failure chronicity, unspecified congestive heart failure type Aditi Mercado MD August 14, 2016 15:01
[2016-08-14] MEDS ORDERED: WARFARIN SOD 4 MG TAB PO SCH (16:00)
[2016-08-14] MEDS: CHOLECALCIFEROL (VIT D3) 1000 UNIT TAB PO SCH (16:01)
[2016-08-14 18:51] LABS: APTT (PATIENT) 51.9 SEC (24.3-30.1)
[2016-08-14] MEDS ORDERED: DILTIAZEM HCL 25 MG/5 ML VIAL IV PUSH ONE (19:30)
[2016-08-14] MEDS: QUEtiapine FUMARATE 200 MG TAB PO SCH (20:04)
[2016-08-14] MEDS: ATORVASTATIN 20 MG TAB PO SCH (20:04)
[2016-08-14] MEDS: TAMSULOSIN HCL 0.4 MG CAP PO SCH (20:04)
[2016-08-15] VITALS (25 sets, daily range): BP systolic 102–137; BP diastolic 68–79; PULSE 75–98; RESP 18; TEMP 97.8–98.3; O2SAT 93–99
[2016-08-15 06:47] LABS: AUTOMATED NEUTROPHIL # 4.7 TH/MM3 (1.8-7.7); BASOPHIL % 0.2 % (0.0-2.0); EOSINOPHIL % 0.5 % (0.0-4.0); HEMATOCRIT 34.9 % (39.0-51.0); HEMO FLAGS DIFF FINAL; LYMPHOCYTE # 1.1 TH/MM3 (1.0-4.8); MEAN CELL VOLUME 79.1 FL (80.0-100.0); MEAN CORPUSCULAR HEMOGLOBIN 26.1 PG (27.0-34.0); MONO % 12.5 % (0.0-8.0); NEUT % 70.8 % (16.0-70.0); PLATELET COUNT 187 TH/MM3 (150-450); RED BLOOD COUNT 4.41 MIL/MM3 (4.50-5.90); RED CELL DISTRIBUTION WIDTH 16.7 % (11.6-17.2); WHITE BLOOD COUNT 6.6 TH/MM3 (4.0-11.0)
[2016-08-15 06:55] LABS: APTT (PATIENT) 62.5 SEC (24.3-30.1); INTERNATIONAL NORMALIZED RATIO 1.2 RATIO; PROTHROMBIN TIME - PATIENT 12.9 SEC (9.8-11.6)
[2016-08-15 07:10] LABS: BICARBONATE 34.5 MEQ/L (21.0-32.0); MAGNESIUM 2.3 MG/DL (1.5-2.5); POTASSIUM 3.7 MEQ/L (3.5-5.1)
[2016-08-15] MEDS: HEPARIN-D5W INJ 250 ML IV SCH (08:22)
[2016-08-15] MEDS: LISINOPRIL 5 MG TAB PO SCH (09:00)
[2016-08-15] MEDS: METOPROLOL SUCCINATE 50 MG EXTENDED RELEASE TAB PO SCH (09:00)
[2016-08-15] MEDS: FUROSEMIDE 40 MG/4 ML VIAL IV PUSH SCH (09:00)
[2016-08-15] MEDS: PARoxetine HCL 20 MG TAB PO SCH (09:00)
[2016-08-15] MEDS: BUDESONIDE-FORMOTEROL 160/4.5 MCG INHALER INH SCH ×2 (09:07→20:55)
[2016-08-15] MEDS: SODIUM CHLORIDE 0.9% FLUSH 10 ML FLUSH IV FLUSH SCH ×2 (09:07→20:56)
[2016-08-15] MEDS: GABAPENTIN 100 MG CAP PO SCH ×3 (09:08→17:28)
[2016-08-15] MEDS: FOLIC ACID 1 MG TAB PO SCH (09:08)
[2016-08-15] MEDS: DOCUSATE SODIUM 100 MG CAP PO SCH ×2 (09:08→20:55)
[2016-08-15] MEDS: CYANOCOBALAMIN 1,000 MCG TAB PO SCH (09:09)
[2016-08-15] MEDS: ALLOPURINOL 100 MG TAB PO SCH (09:10)
[2016-08-15] MEDS: MAGNESIUM HYDROXIDE SUSP 30 ML CUP PO PRN (09:10)
[2016-08-15] MEDS: CHOLECALCIFEROL (VIT D3) 1000 UNIT TAB PO SCH (09:10)
--- NOTE | 2016-08-15 09:21 | HHI.PR ---
Subjective Remarks last night- with runs of PVCs- got 10 mg IV Cardizem paced on telemetry- - rate 90s- low 100s apparently toprol 50 mg XL is not being given past few days - due to BP parameters patient with no complains diuresing well complains of right foot pain and swelling- not hot or warm to touch good peripheral pulses Objective Vitals Vital Signs Date Time Temp Pulse Resp B/P Pulse Ox O2 Delivery O2 Flow Rate FiO2 08/15/16 08:00 92 08/15/16 07:00 95 Nasal Cannula 2.00 08/15/16 07:00 90 08/15/16 07:00 98.3 93 18 108/72 95 08/15/16 06:00 91 08/15/16 05:00 88 08/15/16 04:00 98.1 92 18 104/70 94 08/15/16 04:00 94 Nasal Cannula 2.00 08/15/16 04:00 88 08/15/16 03:00 92 08/15/16 02:00 88 08/15/16 01:00 90 08/15/16 00:00 93 Nasal Cannula 2.00 08/15/16 00:00 94 08/15/16 00:00 98.2 96 18 126/68 93 08/14/16 23:00 94 08/14/16 22:00 98 08/14/16 21:00 102 08/14/16 20:35 92 Nasal Cannula 2.00 08/14/16 20:00 98.5 114 18 131/74 93 08/14/16 20:00 93 Nasal Cannula 2.00 08/14/16 20:00 114 08/14/16 18:00 115 08/14/16 17:43 125/74 08/14/16 17:00 113 08/14/16 16:00 107 08/14/16 15:00 91 Room Air 08/14/16 15:00 98.1 105 20 127/69 91 08/14/16 15:00 97 08/14/16 14:00 98 08/14/16 13:00 92 08/14/16 12:11 93 08/14/16 11:16 97 Nasal Cannula 2.00 08/14/16 11:00 99 08/14/16 11:00 95 Room Air 08/14/16 11:00 98.0 94 18 106/68 95 08/14/16 10:00 86 I/O 08/14/16 08/14/16 08/14/16 08/15/16 08/15/16 08/15/16 07:00 15:00 23:00 07:00 15:00 23:00 Intake Total 383 ml 710 ml 810 ml Output Total 500 ml 500 ml 3350 ml Balance -117 ml 210 ml -2540 ml Intake Oral 240 ml 710 ml 480 ml IV Total 143 ml 330 ml Output Urine Total 500 ml 500 ml 3350 ml # Bowel Movements 1 0 Result Diagram: 08/15/16 0559 08/15/16 0559 Imaging Last Impressions Chest X-Ray 08/10/16 1549 Signed Impressions: Service Date/Time: Wednesday, August 10, 2016 16:20 - CONCLUSION: Pacer, compensated cardiomegaly. Petr Lopez MD FACR Renal Ultrasound 08/10/16 0000 Signed Impressions: Service Date/Time: Wednesday, August 10, 2016 20:47 - CONCLUSION: 1. No evidence of hydronephrosis. 2. Increased echogenicity of the renal parenchyma suggestive of chronic medical renal disease. 3. Right lower pole renal cyst measuring 2.3 cm. 4. There is some free fluid in the abdomen. 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 Right lower extremity pain ECHO reviewed EF of 30-35%. Regional wall motion abnormalities, akinesia of the apical myocardium with large partially calcified oval thrombus at LV apex measuring 20 mm in longest diameter. Continue heparin drip. - coumadin overlap seen by vas surgeon as patient c/o right leg pain and ECHO with large apical LV thrombus.- anticoagulation Lasix IV 40 mfg q 12 IV-- not consistently given- duet ot BP parameters- got 40 mg IB yesterday. - diuresing very well- change to po 20 mg bid Has AICD, says last time was checked a month ago BNP noted elevated 1330. Trending down. Monitor Troponin 0.05 he denies having any chest pain at this time Monitor I's and O's , fluid restriction 1200 ml 2D ECHO as above MATILDA: Creatinine 1.96 BUN 30, low GFR 34 on admission. Monitor kidney function. Avoid nephrotoxins if possible. Ultrasound the kidney reviewed, changes consistent with chronic kidney disease. Cyst noted Improved. continue to monitor BPH. Continue home Medications. Hold if low blood pressure COPD without exacerbation. continue home medications Hyperlipidemia- continue atorvastatin Acute right ankle pain/swelling - r/o Gout right foot r/o any acute pathology- sprain vs fracture Right foot pain, per patient fell 5 days ago- - since then pain and swelling - get foot XRaY- if no fracture- get a CT or MRI (AICD history) - get podiatry consult - trial of colchicine 1.2 mg po x 1 (impression of gout on initial evaluation by Vascular) DVT prophylaxis on Heparin Kaity Terrell MD August 15, 2016 09:21
[2016-08-15] MEDS: METOPROLOL SUCCINATE 25 MG EXTENDED RELEASE TAB PO SCH (09:34)
[2016-08-15] MEDS ORDERED: COLCHICINE 0.6 MG TAB PO ONE (10:00)
--- NOTE | 2016-08-15 11:13 | RADRPT ---
EXAM DATE/TIME: 08/15/2016 10:30 [place] COMPARISON: No previous studies available for comparison. INDICATIONS : Patient fell last Saturday. MEDICAL HISTORY : None. SURGICAL HISTORY : None. ENCOUNTER: Initial ACUITY: 4 - 6 days PAIN SCORE: 4/10 LOCATION: Right Foot. FINDINGS: 3 views of the right foot show spurring in the calcaneus. Degenerative changes are noted involving fi rst metatarsophalangeal joint. There is some heterotopic bone formation observed with erosions involv ing the medial portion of the metatarsal head. Soft tissue swelling is noted. No fractures or disloca tions. CONCLUSION: 1. No fracture or dislocation. 2. Erosive arthropathy involving the first metatarsophalangeal joint. Adan Jackson Jr., MD on August 15, 2016 at 11:09 Board Certified Radiologist. This report was verified electronically.
--- NOTE | 2016-08-15 13:59 | PD.CARD.PN ---
Subjective Subjective Remarks alert in nad Objective Vital Signs / I&O Vital Signs Date Time Temp Pulse Resp B/P Pulse Ox O2 Delivery O2 Flow Rate FiO2 08/15/16 13:00 88 08/15/16 12:00 91 08/15/16 11:51 96 Nasal Cannula 1.00 08/15/16 11:00 98.2 93 18 108/73 95 08/15/16 11:00 95 Room Air 08/15/16 11:00 92 08/15/16 10:00 75 08/15/16 09:00 96 08/15/16 08:00 92 08/15/16 07:00 95 Nasal Cannula 2.00 08/15/16 07:00 90 08/15/16 07:00 98.3 93 18 108/72 95 08/15/16 06:00 91 08/15/16 05:00 88 08/15/16 04:00 98.1 92 18 104/70 94 08/15/16 04:00 94 Nasal Cannula 2.00 08/15/16 04:00 88 08/15/16 03:00 92 08/15/16 02:00 88 08/15/16 01:00 90 08/15/16 00:00 93 Nasal Cannula 2.00 08/15/16 00:00 94 08/15/16 00:00 98.2 96 18 126/68 93 08/14/16 23:00 94 08/14/16 22:00 98 08/14/16 21:00 102 08/14/16 20:35 92 Nasal Cannula 2.00 08/14/16 20:00 98.5 114 18 131/74 93 08/14/16 20:00 93 Nasal Cannula 2.00 08/14/16 20:00 114 08/14/16 18:00 115 08/14/16 17:43 125/74 08/14/16 17:00 113 08/14/16 16:00 107 08/14/16 15:00 91 Room Air 08/14/16 15:00 98.1 105 20 127/69 91 08/14/16 15:00 97 08/14/16 14:00 98 I/O 08/14/16 08/14/16 08/14/16 08/15/16 08/15/16 08/15/16 07:00 15:00 23:00 07:00 15:00 23:00 Intake Total 383 ml 710 ml 810 ml Output Total 500 ml 500 ml 3350 ml Balance -117 ml 210 ml -2540 ml Intake Oral 240 ml 710 ml 480 ml IV Total 143 ml 330 ml Output Urine Total 500 ml 500 ml 3350 ml # Bowel Movements 1 0 Physical Exam GENERAL: SKIN: Warm and dry. HEAD: Normocephalic. EYES: No scleral icterus. No injection or drainage. NECK: Supple, trachea midline. No JVD or lymphadenopathy. CARDIOVASCULAR: Regular rate and rhythm without murmurs, gallops, or rubs. RESPIRATORY: Breath sounds equal bilaterally. No accessory muscle use. GASTROINTESTINAL: Abdomen soft, non-tender, nondistended. MUSCULOSKELETAL: No cyanosis, or edema. BACK: Nontender without obvious deformity. No CVA tenderness. Laboratory Laboratory Tests Test 08/14/16 08/15/16 18:03 05:59 Activated Partial 51.9 SEC 62.5 SEC Thromboplast Time White Blood Count 6.6 TH/MM3 Red Blood Count 4.41 MIL/MM3 Hemoglobin 11.5 GM/DL Hematocrit 34.9 % Mean Corpuscular Volume 79.1 FL Mean Corpuscular Hemoglobin 26.1 PG Mean Corpuscular Hemoglobin 33.0 % Concent Red Cell Distribution Width 16.7 % Platelet Count 187 TH/MM3 Mean Platelet Volume 7.8 FL Neutrophils (%) (Auto) 70.8 % Lymphocytes (%) (Auto) 16.0 % Monocytes (%) (Auto) 12.5 % Eosinophils (%) (Auto) 0.5 % Basophils (%) (Auto) 0.2 % Neutrophils # (Auto) 4.7 TH/MM3 Lymphocytes # (Auto) 1.1 TH/MM3 Monocytes # (Auto) 0.8 TH/MM3 Eosinophils # (Auto) 0.0 TH/MM3 Basophils # (Auto) 0.0 TH/MM3 CBC Comment DIFF FINAL Differential Comment Prothrombin Time 12.9 SEC Prothromb Time International 1.2 RATIO Ratio Sodium Level 139 MEQ/L Potassium Level 3.7 MEQ/L Chloride Level 99 MEQ/L Carbon Dioxide Level 34.5 MEQ/L Anion Gap 6 MEQ/L Blood Urea Nitrogen 14 MG/DL Creatinine 1.08 MG/DL Estimat Glomerular Filtration 68 ML/MIN Rate Random Glucose 91 MG/DL Calcium Level 8.4 MG/DL Magnesium Level 2.3 MG/DL Assessment and Plan Problem List: (1) CHF (congestive heart failure) (2) Acute kidney insufficiency (3) CKD (chronic kidney disease) stage 3, GFR 30-59 ml/min (4) LV (left ventricular) mural thrombus without [place] Assessment and Plan 1.) Cardiomyopathy/chf - continue diuresis, lopressor, altace, f/u bnp 2.) LV thrombus - f/u vasc surg rec, on coumadin, continue heparin until inr>2.0 Problem Qualifiers (1) CHF (congestive heart failure): Qualified Code: I50.9 - Congestive heart failure, unspecified congestive heart failure chronicity, unspecified congestive heart failure type Harshal Jennings MD August 15, 2016 13:58
[2016-08-15] MEDS ORDERED: WARFARIN SOD 2 MG TAB PO SCH (16:00)
[2016-08-15] MEDS: WARFARIN SOD 5 MG TAB PO SCH (16:46)
[2016-08-15] MEDS: FUROSEMIDE 20 MG TAB PO SCH (17:56)
[2016-08-15] MEDS: TAMSULOSIN HCL 0.4 MG CAP PO SCH (20:55)
[2016-08-15] MEDS: ATORVASTATIN 20 MG TAB PO SCH (20:55)
[2016-08-15] MEDS: QUEtiapine FUMARATE 200 MG TAB PO SCH (20:56)
[2016-08-16] VITALS (26 sets, daily range): BP systolic 98–113; BP diastolic 63–80; PULSE 80–110; RESP 18; TEMP 98–98.3; O2SAT 92–98
[2016-08-16] MEDS: HEPARIN-D5W INJ 250 ML IV SCH ×2 (03:47→21:39)
[2016-08-16 04:54] LABS: APTT (PATIENT) 67.1 SEC (24.3-30.1); INTERNATIONAL NORMALIZED RATIO 1.2 RATIO; PROTHROMBIN TIME - PATIENT 12.8 SEC (9.8-11.6)
[2016-08-16] MEDS: GABAPENTIN 100 MG CAP PO SCH ×3 (07:55→17:15)
[2016-08-16] MEDS: DOCUSATE SODIUM 100 MG CAP PO SCH ×2 (07:56→20:12)
[2016-08-16] MEDS: FOLIC ACID 1 MG TAB PO SCH (07:56)
[2016-08-16] MEDS: METOPROLOL SUCCINATE 25 MG EXTENDED RELEASE TAB PO SCH (07:56)
[2016-08-16] MEDS: ALLOPURINOL 100 MG TAB PO SCH (07:56)
[2016-08-16] MEDS: FUROSEMIDE 20 MG TAB PO SCH ×2 (07:56→17:15)
[2016-08-16] MEDS: CYANOCOBALAMIN 1,000 MCG TAB PO SCH (07:56)
[2016-08-16] MEDS: LISINOPRIL 5 MG TAB PO SCH (07:56)
[2016-08-16] MEDS: BUDESONIDE-FORMOTEROL 160/4.5 MCG INHALER INH SCH ×2 (07:57→20:13)
[2016-08-16] MEDS: CHOLECALCIFEROL (VIT D3) 1000 UNIT TAB PO SCH (07:57)
[2016-08-16] MEDS: PARoxetine HCL 20 MG TAB PO SCH (07:57)
[2016-08-16] MEDS: SODIUM CHLORIDE 0.9% FLUSH 10 ML FLUSH IV FLUSH SCH ×2 (07:57→20:13)
--- NOTE | 2016-08-16 12:40 | PD.CARD.PN ---
Subjective Subjective Remarks asleep in nad Objective Vital Signs / I&O Vital Signs Date Time Temp Pulse Resp B/P Pulse Ox O2 Delivery O2 Flow Rate FiO2 08/16/16 12:29 82 08/16/16 11:18 86 08/16/16 11:18 98.2 88 18 102/63 96 08/16/16 11:18 96 Room Air 08/16/16 10:01 88 08/16/16 09:08 88 08/16/16 08:20 96 Nasal Cannula 2.00 08/16/16 08:20 96 08/16/16 08:20 98.0 89 18 98/63 96 08/16/16 07:30 95 Nasal Cannula 2.00 08/16/16 06:12 92 08/16/16 05:16 86 08/16/16 04:47 80 08/16/16 04:24 98.3 87 112/76 97 08/16/16 03:25 81 08/16/16 03:17 Nasal Cannula 2.00 08/16/16 02:00 82 08/16/16 01:00 88 08/16/16 00:18 98.1 93 99/71 96 08/16/16 00:00 90 08/15/16 23:25 Nasal Cannula 2.00 08/15/16 23:00 92 08/15/16 22:00 94 08/15/16 21:00 98 08/15/16 20:08 Nasal Cannula 2.00 08/15/16 20:00 98 08/15/16 19:00 97 08/15/16 19:00 Nasal Cannula 2.00 08/15/16 19:00 96 102/79 08/15/16 18:00 97 08/15/16 17:00 94 08/15/16 16:00 92 08/15/16 15:00 95 08/15/16 15:00 97.8 93 18 137/74 99 08/15/16 15:00 99 Nasal Cannula 2.00 08/15/16 14:00 90 08/15/16 13:00 88 I/O 08/15/16 08/15/16 08/15/16 08/16/16 08/16/16 08/16/16 07:00 15:00 23:00 07:00 15:00 23:00 Intake Total 810 ml 887 ml 240 ml Output Total 3350 ml 425 ml 625 ml Balance -2540 ml 462 ml -385 ml Intake Oral 480 ml 720 ml 240 ml IV Total 330 ml 167 ml Output Urine Total 3350 ml 425 ml 625 ml # Bowel Movements 0 Physical Exam GENERAL: SKIN: Warm and dry. HEAD: Normocephalic. EYES: No scleral icterus. No injection or drainage. NECK: Supple, trachea midline. No JVD or lymphadenopathy. CARDIOVASCULAR: Regular rate and rhythm without murmurs, gallops, or rubs. RESPIRATORY: Breath sounds equal bilaterally. No accessory muscle use. GASTROINTESTINAL: Abdomen soft, non-tender, nondistended. MUSCULOSKELETAL: No cyanosis, or edema. BACK: Nontender without obvious deformity. No CVA tenderness. Laboratory Laboratory Tests Test 08/16/16 03:40 Prothrombin Time 12.8 SEC Prothromb Time International 1.2 RATIO Ratio Activated Partial 67.1 SEC Thromboplast Time B-Type Natriuretic Peptide 685 PG/ML Assessment and Plan Problem List: (1) CHF (congestive heart failure) (2) Acute kidney insufficiency (3) CKD (chronic kidney disease) stage 3, GFR 30-59 ml/min (4) LV (left ventricular) mural thrombus without NV Assessment and Plan 1.) Cardiomyopathy/chf - continue diuresis, lopressor, altace, f/u bnp 2.) LV thrombus - f/u vasc surg rec, on coumadin, continue heparin until inr>2.0 Problem Qualifiers (1) CHF (congestive heart failure): Qualified Code: I50.9 - Congestive heart failure, unspecified congestive heart failure chronicity, unspecified congestive heart failure type Harshal Jennings MD August 16, 2016 12:40
[2016-08-16] MEDS: WARFARIN SOD 5 MG TAB PO SCH (15:20)
--- NOTE | 2016-08-16 15:41 | HHI.PR ---
Subjective Remarks feeling better, rhythm paced on telemetry right foot pain and movement improved with x 1 dose of colchicine Objective Vitals Vital Signs Date Time Temp Pulse Resp B/P Pulse Ox O2 Delivery O2 Flow Rate FiO2 08/16/16 15:07 98 Room Air 08/16/16 15:07 98.0 86 18 104/72 98 08/16/16 15:07 91 08/16/16 14:01 89 08/16/16 13:07 85 08/16/16 12:29 82 08/16/16 11:18 86 08/16/16 11:18 98.2 88 18 102/63 96 08/16/16 11:18 96 Room Air 08/16/16 10:01 88 08/16/16 09:08 88 08/16/16 08:20 96 Nasal Cannula 2.00 08/16/16 08:20 96 08/16/16 08:20 98.0 89 18 98/63 96 08/16/16 07:30 95 Nasal Cannula 2.00 08/16/16 06:12 92 08/16/16 05:16 86 08/16/16 04:47 80 08/16/16 04:24 98.3 87 112/76 97 08/16/16 03:25 81 08/16/16 03:17 Nasal Cannula 2.00 08/16/16 02:00 82 08/16/16 01:00 88 08/16/16 00:18 98.1 93 99/71 96 08/16/16 00:00 90 08/15/16 23:25 Nasal Cannula 2.00 08/15/16 23:00 92 08/15/16 22:00 94 08/15/16 21:00 98 08/15/16 20:08 Nasal Cannula 2.00 08/15/16 20:00 98 08/15/16 19:00 97 08/15/16 19:00 Nasal Cannula 2.00 08/15/16 19:00 96 102/79 08/15/16 18:00 97 08/15/16 17:00 94 08/15/16 16:00 92 I/O 08/15/16 08/15/16 08/15/16 08/16/16 08/16/16 08/16/16 07:00 15:00 23:00 07:00 15:00 23:00 Intake Total 810 ml 887 ml 240 ml Output Total 3350 ml 425 ml 625 ml Balance -2540 ml 462 ml -385 ml Intake Oral 480 ml 720 ml 240 ml IV Total 330 ml 167 ml Output Urine Total 3350 ml 425 ml 625 ml # Bowel Movements 0 Result Diagram: 08/15/16 0559 08/15/16 0559 Imaging Last Impressions Foot X-Ray 08/15/16 0000 Signed Impressions: Service Date/Time: Monday, August 15, 2016 10:30 - CONCLUSION: 1. No fracture or dislocation. 2. Erosive arthropathy involving the first metatarsophalangeal joint. Adan Jackson Jr., MD Chest X-Ray 08/10/16 1549 Signed Impressions: Service Date/Time: Wednesday, August 10, 2016 16:20 - CONCLUSION: Pacer, compensated cardiomegaly. Petr Lopez MD FACR Renal Ultrasound 08/10/16 0000 Signed Impressions: Service Date/Time: Wednesday, August 10, 2016 20:47 - CONCLUSION: 1. No evidence of hydronephrosis. 2. Increased echogenicity of the renal parenchyma suggestive of chronic medical renal disease. 3. Right lower pole renal cyst measuring 2.3 cm. 4. There is some free fluid in the abdomen. Wil Tuttle MD Objective Remarks awake alert, NAD anicteric lungs no rales or wheezes regular rhythm- paced on telemetry abdomen soft, nontender extremities + leg swelling improved, left foot /toes slightly cool to touch ( very good pulses on doppler), moving feet better no gross neuro deficits Date of Removal: August 15, 2016 A/P Assessment and Plan 70-year-old male with Acute exacerbation of combine systolic and diastolic CHF EF 30-35% Akinesia of the apical myocardium with Large partially calcified oval thrombus at LV apex measuring 20 mm in longest diameter. Right lower extremity pain ECHO reviewed EF of 30-35%. Regional wall motion abnormalities, akinesia of the apical myocardium with large partially calcified oval thrombus at LV apex measuring 20 mm in longest diameter. Continue heparin drip. - coumadin overlap seen by [facility] surgeon as patient c/o right leg pain and ECHO with large apical LV thrombus.- anticoagulation Lasix po 20 mg bid Has AICD, BNP noted elevated 1330. Troponin 0.05 he denies having any chest pain at this time Monitor I's and O's , fluid restriction 1200 ml MATILDA: Creatinine 1.96 BUN 30, low GFR 34 on admission. Resolved Monitor kidney function. Avoid nephrotoxins if possible. Ultrasound the kidney reviewed, changes consistent with chronic kidney disease. Cyst noted Improved. continue to monitor Nephrology ff BPH. Continue home Medications. Hold if low blood pressure COPD without exacerbation. continue home medications Hyperlipidemia- continue atorvastatin Acute right ankle pain/swelling - r/o Gout right foot r/o any acute pathology- sprain vs fracture Right foot pain, per patient fell 5 days ago- - since then pain and swelling - negative foot XRaY--- get a CT of the foot - pain and swelling improved with x 1 dose of colchicine - get podiatry consult- pending DVT prophylaxis on Heparin Kaity Terrell MD August 16, 2016 15:41
[2016-08-16] MEDS ORDERED: WARFARIN SOD 4 MG TAB PO SCH (16:00)
[2016-08-16] MEDS: MAGNESIUM HYDROXIDE SUSP 30 ML CUP PO PRN (17:16)
[2016-08-16] MEDS: QUEtiapine FUMARATE 200 MG TAB PO SCH (20:12)
[2016-08-16] MEDS: ATORVASTATIN 20 MG TAB PO SCH (20:12)
[2016-08-16] MEDS: COLCHICINE 0.6 MG TAB PO SCH (20:12)
[2016-08-16] MEDS: TAMSULOSIN HCL 0.4 MG CAP PO SCH (20:12)
--- NOTE | 2016-08-16 22:00 | MB ---
cc: MARIA ALEJANDRA SANCHEZ DATE OF CONSULTATION: 08/16/2016 CHIEF COMPLAINT Right foot pain. HISTORY OF PRESENT ILLNESS Mr. Ricks is a 70-year-old gentleman with multiple medical problems. He was admitted through the ER because his [place] doctor advised him to come get further testing for his congestive heart failure. He is complaining of right ankle and foot pain with swelling and left knee swelling. He states that he did have a fall at home a few days ago and the foot had not been bothering him before the fall. He was given a trial dose of colchicine and he states that after taking the colchicine he did have some mild improvement but not resolution of the foot pain. PAST MEDICAL HISTORY 1. Congestive heart failure with an AICD. 2. Hyperlipidemia. 3. Benign prostatic hypertrophy. 4. Chronic obstructive pulmonary disease. 5. Depression. FAMILY HISTORY Noncontributory. PAST SURGICAL HISTORY AICD placement in 2015. MEDICATIONS Please see list. ALLERGIES NO KNOWN DRUG ALLERGIES. FAMILY HISTORY Noncontributory. SOCIAL HISTORY The patient denies smoking or illicit drug use. He is a social drinker. He typically gets medical care at the [place]. PHYSICAL EXAMINATION VITAL SIGNS Temperature is 98.0, T-max 98.3, pulse is 100, respiratory rate 18, blood pressure 104/72, pulse ox 98% O2 on room air. LABORATORY DATA White count 6.6, hemoglobin and is 11.5, hematocrit 34.9, platelets 187, INR 1.2. Sodium 139, potassium 3.7, chloride 99, carbon dioxide 34.5, BUN 14. IMAGING STUDIES Right foot x-ray is negative for any fractures or dislocations. There are some changes to the first metatarsophalangeal joint with joint space narrowing and erosion, increase in the soft tissue envelope. PHYSICAL EXAMINATION On physical exam, the patient has bilateral palpable pulses with the left foot being cool to touch. Cap fill time is less than 3 seconds. Gross sensation is intact. The right lower extremity has erythema and pain to the right medial first metatarsophalangeal joint and tenderness with range of motion. The patient also relates tenderness to the medial and lateral ankle gutters but no difficulty with weightbearing or range of motion. +2 pitting edema to the right lower extremity. ASSESSMENT 1. Right first MPJ gout. 2. Right +2 pitting edema. The patient's positive response to gout and clinical presentation both solidify a diagnosis of gout. Allopurinol was stopped as it can worsen an acute gouty attack. Colchicine was prescribed for three days. At the end of those three days, if the symptoms have resolved then allopurinol can be resumed. For the patient's ankle pain, I am suggesting a light Ney wrap, elevation and icing. The patient likely cannot tolerate any compression due to the gout flare, but once it is contained the nursing staff has been advised to wrap the ankle accordingly. He can weightbear as tolerated. We will follow the patient intermittently while in-house. Thank you for the consultation. Maria Alejandra HOLLEY/BJF /7:58 PM /9:36 PM
[2016-08-16 23:53] LABS: KAPPA/LAMBDA FREE 1.71 (0.26-1.65)
[2016-08-17] VITALS (24 sets, daily range): BP systolic 94–119; BP diastolic 71–81; PULSE 82–99; RESP 16; TEMP 97.3–98.3; O2SAT 92–96
[2016-08-17] MEDS: COLCHICINE 0.6 MG TAB PO SCH ×3 (05:21→20:53)
[2016-08-17 05:27] LABS: HEMATOCRIT 33.3 % (39.0-51.0); MEAN CELL VOLUME 78.8 FL (80.0-100.0); PLATELET COUNT 193 TH/MM3 (150-450); RED BLOOD COUNT 4.22 MIL/MM3 (4.50-5.90); RED CELL DISTRIBUTION WIDTH 16.7 % (11.6-17.2); REVIEW FLAG FINAL; WHITE BLOOD COUNT 5.7 TH/MM3 (4.0-11.0)
[2016-08-17 05:36] LABS: APTT (PATIENT) 68.5 SEC (24.3-30.1); INTERNATIONAL NORMALIZED RATIO 1.7 RATIO; PROTHROMBIN TIME - PATIENT 18.9 SEC (9.8-11.6)
--- NOTE | 2016-08-17 08:03 | EC ---
Study Study Date:08/11/2016 STUDY CONCLUSIONS SUMMARY - Left ventricle: The cavity size was normal. Wall thickness was normal. Systolic function was moderately to severely reduced. The estimated ejection fraction was in the range of 30% to 35%. Akinesis of the apical myocardium. - Aortic valve: Valve area: 1.33cm^2 (Vmax). - Mitral valve: Mildly calcified annulus. Mild to moderate regurgitation. - Left atrium: The atrium was mildly dilated. - Pulmonary arteries: PA peak pressure: 34mm Hg (S). If LV function is below 40, please consider prescribing an ACEI or ARB or document rationale for non-use. PROCEDURE DATA STUDY STATUS: Elective. Procedure: Transthoracic echocardiography. Image quality was good. Scanning was performed from the parasternal, apical, and subcostal acoustic windows. Study completion: The patient tolerated the procedure well. Transthoracic echocardiography. M-mode, complete 2D, complete spectral Doppler, and color Doppler. Height: Height: 73in. Weight: Weight: 219.5lb. Body mass index: BMI: 29kg/m^2. Body surface area: BSA: 2.24m^2. Patient status: Inpatient. CARDIAC ANATOMY LEFT VENTRICLE: appears to be a large partially calcified oval thrombus @ lv apex measuring @ 20 mm in longest diameter The cavity size was normal. Wall thickness was normal. Systolic function was moderately to severely reduced. The estimated ejection fraction was in the range of 30% to 35%. Regional wall motion abnormalities: Akinesis of the apical myocardium. AORTIC VALVE: Trileaflet; mildly thickened, mildly calcified leaflets. Doppler: Transvalvular velocity was within the normal range. There was no stenosis. No regurgitation. Valve area: 1.33cm^2 (Vmax). Indexed valve area: 0.59cm^2/m^2 (Vmax). AORTA: Aortic root: The aortic root was normal in size. MITRAL VALVE: Mildly calcified annulus. Doppler: Transvalvular velocity was within the normal range. There was no evidence for stenosis. Mild to moderate regurgitation. LEFT ATRIUM: The atrium was mildly dilated. RIGHT VENTRICLE: The cavity size was normal. Wall thickness was normal. PULMONIC VALVE: Doppler: Transvalvular velocity was within the normal range. There was no evidence for stenosis. No regurgitation. TRICUSPID VALVE: Structurally normal valve. Doppler: Transvalvular velocity was within the normal range. No regurgitation. PULMONARY ARTERY: The main pulmonary artery was normal-sized. Systolic pressure was within the normal range. RIGHT ATRIUM: The atrium was normal in size. PERICARDIUM: There was no pericardial effusion. SYSTEMIC VEINS: Inferior vena cava: The vessel was normal in size. Patient weight: 219.5lb _Ejection fraction:_ 65-75% _Fractional shortening:_ 32% up to 5Kg 5-11.5Kg 11.6-22.9Kg 23-45Kg 45-57Kg Aortic Root 7-13 <17 13-22 17-27 17-27 LA diam 6-13 <23 24-38 33-47 37-40 RVID 10-17 7-15 7-15 7-18 8-17 LVIDd 12-22 <32 24-38 33-47 37-40 LVPW 2-4 3-6 5-7 6-8 7-8 IVS 2-4 3-6 5-7 6-8 7-8 BASIC MEASUREMENTS ADULT NORMAL Left ventricle LV internal dimension, ED, chordal *55.6 mm 43-52 level, PLAX LV internal dimension, ES, chordal *47.9 mm 23-38 level, PLAX Fractional shortening, chordal level, *14 % >29 PLAX LV posterior wall thickness, ED 13.1 mm IVS/LVPW ratio, ED 1.01 <1.3 Ventricular septum Septal thickness, ED 13.2 mm Aortic valve Leaflet separation 18 mm 15-26 BASIC MEASUREMENTS ADULT NORMAL Aortic valve Leaflet separation 18 mm 15-26 Aorta Root diameter, ED 30 mm 20-37 Left atrium Anterior-posterior dimension, ES *42 mm 19-40 Anterior-posterior dimension index, ES 1.88 cm/m^2 <2.2 LA/aortic root ratio 1.4 DOPPLER MEASUREMENTS ADULT NORMAL Main pulmonary artery Pressure, S *34 mm Hg =30 Aortic valve Peak velocity, S 133 cm/s Valve area, Vmax 1.33 cm^2 Valve area index, Vmax 0.59 cm^2/m^2 Mitral valve Maximal regurgitant velocity 325 cm/s Tricuspid valve Regurgitant peak velocity 225 cm/s Peak RV-RA gradient, S 20 mm Hg Maximal regurgitant velocity 225 cm/s Systemic veins Estimated CVP 10 mm Hg Right ventricle RV pressure, S *37 mm Hg <30 Pulmonic valve Peak velocity, S 82.8 cm/s LEGEND: Mean values are shown as u=mean value. Asterisk (*) guzman values outside specified normal range. Prepared and signed by Harshal Jennings [id number]
[2016-08-17] MEDS: FOLIC ACID 1 MG TAB PO SCH (09:32)
[2016-08-17] MEDS: CYANOCOBALAMIN 1,000 MCG TAB PO SCH (09:32)
[2016-08-17] MEDS: PARoxetine HCL 20 MG TAB PO SCH (09:32)
[2016-08-17] MEDS: CHOLECALCIFEROL (VIT D3) 1000 UNIT TAB PO SCH (09:32)
[2016-08-17] MEDS: DOCUSATE SODIUM 100 MG CAP PO SCH ×2 (09:32→20:53)
[2016-08-17] MEDS: GABAPENTIN 100 MG CAP PO SCH ×3 (09:32→18:34)
[2016-08-17] MEDS: METOPROLOL SUCCINATE 25 MG EXTENDED RELEASE TAB PO SCH (09:33)
[2016-08-17] MEDS: FUROSEMIDE 20 MG TAB PO SCH ×2 (09:33→18:34)
[2016-08-17] MEDS: BUDESONIDE-FORMOTEROL 160/4.5 MCG INHALER INH SCH ×2 (09:35→20:53)
[2016-08-17] MEDS: LISINOPRIL 5 MG TAB PO SCH (09:35)
--- NOTE | 2016-08-17 10:13 | PD.CARD.PN ---
Subjective Subjective Remarks alert in nad Objective Vital Signs / I&O Vital Signs Date Time Temp Pulse Resp B/P Pulse Ox O2 Delivery O2 Flow Rate FiO2 08/17/16 09:00 95 08/17/16 09:00 97.3 99 16 104/71 94 08/17/16 09:00 94 Room Air 08/17/16 08:39 93 21 08/17/16 06:01 94 08/17/16 05:08 92 08/17/16 04:38 90 08/17/16 03:46 93 08/17/16 03:25 Nasal Cannula 2.00 21 08/17/16 03:00 97.8 94 94/76 92 08/17/16 02:00 88 08/17/16 01:00 92 08/17/16 00:00 90 08/16/16 23:29 Nasal Cannula 2.00 21 08/16/16 23:00 91 08/16/16 23:00 98.0 100 113/80 92 08/16/16 22:00 96 08/16/16 21:00 110 08/16/16 20:00 96 08/16/16 19:00 97 08/16/16 19:00 98.3 95 107/75 97 08/16/16 19:00 Nasal Cannula 2.00 21 08/16/16 18:03 100 08/16/16 17:06 92 08/16/16 16:05 92 08/16/16 15:07 98 Room Air 08/16/16 15:07 98.0 86 18 104/72 98 08/16/16 15:07 91 08/16/16 14:01 89 08/16/16 13:07 85 08/16/16 12:29 82 08/16/16 11:18 86 08/16/16 11:18 98.2 88 18 102/63 96 08/16/16 11:18 96 Room Air I/O 08/16/16 08/16/16 08/16/16 08/17/16 08/17/16 08/17/16 07:00 15:00 23:00 07:00 15:00 23:00 Intake Total 240 ml 1220 ml 240 ml Output Total 625 ml 950 ml 400 ml Balance -385 ml 270 ml -160 ml Intake Oral 240 ml 1080 ml 240 ml IV Total 140 ml Output Urine Total 625 ml 950 ml 400 ml # Bowel Movements 0 1 Physical Exam GENERAL: SKIN: Warm and dry. HEAD: Normocephalic. EYES: No scleral icterus. No injection or drainage. NECK: Supple, trachea midline. No JVD or lymphadenopathy. CARDIOVASCULAR: Regular rate and rhythm without murmurs, gallops, or rubs. RESPIRATORY: Breath sounds equal bilaterally. No accessory muscle use. GASTROINTESTINAL: Abdomen soft, non-tender, nondistended. MUSCULOSKELETAL: No cyanosis, or edema. BACK: Nontender without obvious deformity. No CVA tenderness. Laboratory Laboratory Tests Test 08/17/16 04:33 White Blood Count 5.7 TH/MM3 Red Blood Count 4.22 MIL/MM3 Hemoglobin 11.0 GM/DL Hematocrit 33.3 % Mean Corpuscular Volume 78.8 FL Mean Corpuscular Hemoglobin 26.0 PG Mean Corpuscular Hemoglobin 33.0 % Concent Red Cell Distribution Width 16.7 % Platelet Count 193 TH/MM3 Mean Platelet Volume 7.8 FL Prothrombin Time 18.9 SEC Prothromb Time International 1.7 RATIO Ratio Activated Partial 68.5 SEC Thromboplast Time Assessment and Plan Problem List: (1) CHF (congestive heart failure) (2) Acute kidney insufficiency (3) CKD (chronic kidney disease) stage 3, GFR 30-59 ml/min (4) LV (left ventricular) mural thrombus without WA Assessment and Plan 1.) Cardiomyopathy/chf - continue diuresis, lopressor, altace, f/u bnp 2.) LV thrombus - f/u vasc surg rec, on coumadin, continue heparin until inr>2.0 Problem Qualifiers (1) CHF (congestive heart failure): Qualified Code: I50.9 - Congestive heart failure, unspecified congestive heart failure chronicity, unspecified congestive heart failure type Harshal Jennings MD August 17, 2016 10:13
[2016-08-17] MEDS: SODIUM CHLORIDE 0.9% FLUSH 10 ML FLUSH IV FLUSH SCH ×2 (13:31→20:53)
--- NOTE | 2016-08-17 15:10 | HHI.PR ---
Subjective Remarks feeling better- breathing stable foot pain and swelling improved up and ambulated with his cane - which is his baseline Objective Vitals Vital Signs Date Time Temp Pulse Resp B/P Pulse Ox O2 Delivery O2 Flow Rate FiO2 08/17/16 12:00 94 08/17/16 11:00 98.1 93 16 109/74 94 08/17/16 11:00 93 08/17/16 11:00 94 Room Air 08/17/16 10:00 91 08/17/16 09:00 95 08/17/16 09:00 97.3 99 16 104/71 94 08/17/16 09:00 94 Room Air 08/17/16 08:39 93 21 08/17/16 08:00 92 08/17/16 07:00 93 08/17/16 06:01 94 08/17/16 05:08 92 08/17/16 04:38 90 08/17/16 03:46 93 08/17/16 03:25 Nasal Cannula 2.00 21 08/17/16 03:00 97.8 94 94/76 92 08/17/16 02:00 88 08/17/16 01:00 92 08/17/16 00:00 90 08/16/16 23:29 Nasal Cannula 2.00 21 08/16/16 23:00 91 08/16/16 23:00 98.0 100 113/80 92 08/16/16 22:00 96 08/16/16 21:00 110 08/16/16 20:00 96 08/16/16 19:00 97 08/16/16 19:00 98.3 95 107/75 97 08/16/16 19:00 Nasal Cannula 2.00 21 08/16/16 18:03 100 08/16/16 17:06 92 08/16/16 16:05 92 I/O 08/16/16 08/16/16 08/16/16 08/17/16 08/17/16 08/17/16 07:00 15:00 23:00 07:00 15:00 23:00 Intake Total 240 ml 1220 ml 240 ml Output Total 625 ml 950 ml 400 ml Balance -385 ml 270 ml -160 ml Intake Oral 240 ml 1080 ml 240 ml IV Total 140 ml Output Urine Total 625 ml 950 ml 400 ml # Bowel Movements 0 1 Result Diagram: 08/17/16 0433 08/15/16 0559 Imaging Last Impressions Foot X-Ray 08/15/16 0000 Signed Impressions: Service Date/Time: Monday, August 15, 2016 10:30 - CONCLUSION: 1. No fracture or dislocation. 2. Erosive arthropathy involving the first metatarsophalangeal joint. Adan Jackson Jr., MD Chest X-Ray 08/10/16 1549 Signed Impressions: Service Date/Time: Wednesday, August 10, 2016 16:20 - CONCLUSION: Pacer, compensated cardiomegaly. Petr Lopez MD FACR Renal Ultrasound 08/10/16 0000 Signed Impressions: Service Date/Time: Wednesday, August 10, 2016 20:47 - CONCLUSION: 1. No evidence of hydronephrosis. 2. Increased echogenicity of the renal parenchyma suggestive of chronic medical renal disease. 3. Right lower pole renal cyst measuring 2.3 cm. 4. There is some free fluid in the abdomen. Wil Tuttle MD Objective Remarks awake alert, NAD anicteric lungs no rales or wheezes regular rhythm- paced on telemetry abdomen soft, nontender extremities decrease leg swelling, foot pain and swelling improved, better range of motion, up with cane- baseline no gross neuro deficits Date of Removal: August 15, 2016 A/P Assessment and Plan 70-year-old male with Acute exacerbation of combine systolic and diastolic CHF EF 30-35% Akinesia of the apical myocardium with Large partially calcified oval thrombus at LV apex measuring 20 mm in longest diameter. Right lower extremity pain - imrpoved ECHO reviewed EF of 30-35%. Regional wall motion abnormalities, akinesia of the apical myocardium with large partially calcified oval thrombus at LV apex measuring 20 mm in longest diameter. Continue heparin drip. - coumadin overlap seen by [facility] surgeon as patient c/o right leg pain and ECHO with large apical LV thrombus.- anticoagulation Lasix po 20 mg bid. check BMP Has AICD, BNP noted elevated 1330. Troponin 0.05 he denies having any chest pain at this time Monitor I's and O's , fluid restriction 1200 ml MATILDA: Creatinine 1.96 BUN 30, low GFR 34 on admission. Resolved Monitor kidney function. Avoid nephrotoxins if possible. Ultrasound the kidney reviewed, changes consistent with chronic kidney disease. Cyst noted Improved. continue to monitor Nephrology ff BPH. Continue home Medications. Hold if low blood pressure COPD without exacerbation. continue home medications Hyperlipidemia- continue atorvastatin Acute right ankle pain/swelling - r/o Gout right foot r/o any acute pathology- sprain vs fracture Right foot pain, per patient fell 5 days ago- --Persistent pain - negative foot XRaY--- get a CT - pending- ordered 08/16. - pain and swelling improved with x 1 dose of colchicine - Podiatry input appreciated DVT prophylaxis on Heparin drip DC planning- if DC - [facility] ff up Kaity Yuen MD August 17, 2016 15:10 Kaity Yuen MD August 17, 2016 15:10
--- NOTE | 2016-08-17 15:38 | RADRPT ---
EXAM DATE/TIME: 08/17/2016 14:26 [facility] COMPARISON: FOOT RIGHT COMPLETE ([id number]), August 15, 2016, 10:30. INDICATIONS : Recent fall, right foot pain and swelling. RADIATION DOSE: 7.29 CTDIvol (mGy) MEDICAL HISTORY : Cardiovascular disease. Chronic obstructive pulmonary disease. Gout SURGICAL HISTORY : Abdominal aortic aneurysm repair. ENCOUNTER: Initial ACUITY: 2 days PAIN SCALE: 6/10 LOCATION: Right foot TECHNIQUE: Volumetric scanning of the foot was performed. Using automated exposure control and adjustment of th e mA and/or kV according to patient size, radiation dose was kept as low as reasonably achievable to obtain optimal diagnostic quality images. FINDINGS: There is a nondisplaced oblique fracture of the distal fibula. The tibia is intact. There is well cor ticated ossific density inferior to the medial malleolus characteristic of old trauma. The ankle mort ise is intact. CONCLUSION: 1. Fracture distal fibula Suresh Parekh MD on August 17, 2016 at 15:26 Board Certified Radiologist. This report was verified electronically.
[2016-08-17] MEDS: WARFARIN SOD 5 MG TAB PO SCH (16:15)
[2016-08-17] MEDS: HEPARIN-D5W INJ 250 ML IV SCH (16:16)
[2016-08-17 18:03] LABS: BICARBONATE 34.7 MEQ/L (21.0-32.0); POTASSIUM 4.1 MEQ/L (3.5-5.1)
[2016-08-17] MEDS: TAMSULOSIN HCL 0.4 MG CAP PO SCH (20:53)
[2016-08-17] MEDS: QUEtiapine FUMARATE 200 MG TAB PO SCH (20:53)
[2016-08-17] MEDS: ATORVASTATIN 20 MG TAB PO SCH (20:53)
--- NOTE | 2016-08-17 22:10 | RADRPT ---
EXAM DATE/TIME: 08/17/2016 19:48 [facility] COMPARISON: CT FOOT RIGHT W/O CONTRAST, August 17, 2016, 14:26. INDICATIONS : Fall, right foot pain and swelling MEDICAL HISTORY : Hypotensive, congestive heart failure with AICD, hyperlipidemia, BPH, COPD, depression/anxiety SURGICAL HISTORY : Unknown ENCOUNTER: Subsequent ACUITY: 3 days PAIN SCORE: 6/10 LOCATION: Right foot FINDINGS: Partly seen is an oblique fracture of the distal fibula and please refer to today's CT report. Furthe r distal, there is bone destruction medially of the first metatarsal head and an apparent non-acute f ragment off of the lateral aspect base of the great toe proximal phalanx. There is also some nonacute fragmentation and sclerosis of the sesamoids. I don't clearly see an acute fracture of the foot. The re is a large amount of soft tissue swelling dorsally of the forefoot. Small heel spur noted. Also moderate sized enthesophyte of distal Achilles. Achilles is intact. CONCLUSION: 1. Fractured distal fibula. 2. No acute fracture seen of the right foot but there is soft tissue swelling noted of the forefoot a nd bone destruction centered around the first metatarsophalangeal joint, nonspecific but most likely infectious or inflammatory. Please correlate clinically. Sammy Martínez MD on August 17, 2016 at 22:04 Board Certified Radiologist. This report was verified electronically.
[2016-08-18] VITALS (29 sets, daily range): BP systolic 74–110; BP diastolic 52–82; PULSE 51–90; RESP 16–18; TEMP 97.5–98.5; O2SAT 90–98
[2016-08-18 05:16] LABS: APTT (PATIENT) 81.5 SEC (24.3-30.1)
[2016-08-18 05:16] LABS: INTERNATIONAL NORMALIZED RATIO 2.1 RATIO; PROTHROMBIN TIME - PATIENT 24.1 SEC (9.8-11.6)
[2016-08-18] MEDS: COLCHICINE 0.6 MG TAB PO SCH ×3 (05:16→21:15)
[2016-08-18] MEDS: SODIUM CHLORIDE 0.9% FLUSH 10 ML FLUSH IV FLUSH SCH ×2 (08:43→21:15)
[2016-08-18] MEDS: PARoxetine HCL 20 MG TAB PO SCH (08:44)
[2016-08-18] MEDS: FUROSEMIDE 20 MG TAB PO SCH ×2 (08:44→17:39)
[2016-08-18] MEDS: DOCUSATE SODIUM 100 MG CAP PO SCH ×2 (08:44→21:00)
[2016-08-18] MEDS: LISINOPRIL 5 MG TAB PO SCH (08:44)
[2016-08-18] MEDS: GABAPENTIN 100 MG CAP PO SCH ×3 (08:44→17:39)
[2016-08-18] MEDS: FOLIC ACID 1 MG TAB PO SCH (08:44)
[2016-08-18] MEDS: METOPROLOL SUCCINATE 25 MG EXTENDED RELEASE TAB PO SCH (08:45)
[2016-08-18] MEDS: CYANOCOBALAMIN 1,000 MCG TAB PO SCH (08:45)
[2016-08-18] MEDS: CHOLECALCIFEROL (VIT D3) 1000 UNIT TAB PO SCH (08:45)
[2016-08-18] MEDS: BUDESONIDE-FORMOTEROL 160/4.5 MCG INHALER INH SCH ×2 (08:46→21:18)
--- NOTE | 2016-08-18 09:32 | RADRPT ---
EXAM DATE/TIME: 08/18/2016 08:31 [place] COMPARISON: No previous studies available for comparison. INDICATIONS : Right ankle pain after fall one week ago. MEDICAL HISTORY : None. SURGICAL HISTORY : None. ENCOUNTER: Subsequent ACUITY: 1 week PAIN SCORE: 5/10 LOCATION: Right lateral ankle. FINDINGS: 3 views of the right ankle. Oblique fracture of the distal fibula shaft just superior to the lateral malleolus with 3 mm displacement. Corticated ossicles in the region of the deltoid ligament indicatin g sequela of old trauma. Moderate sized plantar and Achilles calcaneal spurs. CONCLUSION: Distal fibula fracture. Diony Howell MD on August 18, 2016 at 9:29 Board Certified Radiologist. This report was verified electronically.
--- NOTE | 2016-08-18 11:46 | PD.CARD.PN ---
Subjective Subjective Remarks alert in nad Objective Vital Signs / I&O Vital Signs Date Time Temp Pulse Resp B/P Pulse Ox O2 Delivery O2 Flow Rate FiO2 08/18/16 10:00 82 08/18/16 09:00 82 08/18/16 08:05 Room Air 94 08/18/16 08:05 97.9 86 18 102/82 94 08/18/16 08:00 82 08/18/16 07:00 89 08/18/16 06:00 78 08/18/16 05:00 88 08/18/16 04:11 98.4 80 92/52 90 08/18/16 04:00 80 08/18/16 03:28 Room Air 2.00 21 08/18/16 03:00 75 08/18/16 02:00 88 08/18/16 01:00 86 08/18/16 00:37 98.5 51 93/63 93 08/18/16 00:00 86 08/17/16 23:03 Room Air 21 08/17/16 23:00 87 08/17/16 20:00 82 08/17/16 19:00 Room Air 21 08/17/16 19:00 93 08/17/16 19:00 98.3 91 100/73 96 08/17/16 18:47 95 08/17/16 17:00 97 08/17/16 16:00 96 08/17/16 15:00 96 Room Air 08/17/16 15:00 98.3 94 16 119/81 96 08/17/16 14:00 90 08/17/16 13:00 95 08/17/16 12:00 94 I/O 08/17/16 08/17/16 08/17/16 08/18/16 08/18/16 08/18/16 07:00 15:00 23:00 07:00 15:00 23:00 Intake Total 240 ml 700 ml 240 ml Output Total 400 ml 1450 ml 750 ml Balance -160 ml -750 ml -510 ml Intake Oral 240 ml 500 ml 240 ml IV Total 200 ml Output Urine Total 400 ml 1450 ml 750 ml # Bowel Movements 1 0 Physical Exam GENERAL: SKIN: Warm and dry. HEAD: Normocephalic. EYES: No scleral icterus. No injection or drainage. NECK: Supple, trachea midline. No JVD or lymphadenopathy. CARDIOVASCULAR: Regular rate and rhythm without murmurs, gallops, or rubs. RESPIRATORY: Breath sounds equal bilaterally. No accessory muscle use. GASTROINTESTINAL: Abdomen soft, non-tender, nondistended. MUSCULOSKELETAL: No cyanosis, or edema. BACK: Nontender without obvious deformity. No CVA tenderness. Laboratory Laboratory Tests Test 08/17/16 08/18/16 08/18/16 16:51 03:21 05:15 Sodium Level 138 MEQ/L Potassium Level 4.1 MEQ/L Chloride Level 99 MEQ/L Carbon Dioxide Level 34.7 MEQ/L Anion Gap 4 MEQ/L Blood Urea Nitrogen 17 MG/DL Creatinine 1.12 MG/DL Estimat Glomerular Filtration 65 ML/MIN Rate Random Glucose 88 MG/DL Calcium Level 8.7 MG/DL Activated Partial 81.5 SEC Thromboplast Time Prothrombin Time 24.1 SEC Prothromb Time International 2.1 RATIO Ratio Assessment and Plan Problem List: (1) CHF (congestive heart failure) (2) Acute kidney insufficiency (3) CKD (chronic kidney disease) stage 3, GFR 30-59 ml/min (4) LV (left ventricular) mural thrombus without NM Assessment and Plan 1.) Cardiomyopathy/chf - continue diuresis, lopressor, altace, f/u bnp 2.) LV thrombus - f/u vasc surg rec, on coumadin, inr 2.1, ok to dc from cv standpoint, [facility] d[facility]w patient and nurse Problem Qualifiers (1) CHF (congestive heart failure): Qualified Code: I50.9 - Congestive heart failure, unspecified congestive heart failure chronicity, unspecified congestive heart failure type Harshal Jennings MD August 18, 2016 11:46
--- NOTE | 2016-08-18 13:18 | MB ---
cc: BRENDAN CHENEY MD DATE OF CONSULTATION: 08/18/2016. REASON FOR CONSULTATION: Right ankle pain. HISTORY OF PRESENT ILLNESS: This is a 70-year-old male who had a recent fall injuring the right ankle. He was also recently hospitalized at [facility] for congestive heart failure and COPD exacerbation with shortness of breath. He complains of pain, swelling, and throbbing of the right ankle. He has difficulty with standing and bearing weight. The pain is localized around the lateral aspect. X-rays have been informed and he has been diagnosed with a right distal fibula fracture. Orthopedic surgery was consulted for further evaluation and management. PAST MEDICAL HISTORY: His past medical history is positive for: 1. Congestive heart failure. 2. Pacemaker. 3. Hyperlipidemia. 4. Prostate enlargement. 5. COPD. 6. Depression. 7. Anxiety. MEDICATIONS: 1. Naproxen. 2. Tamsulosin. 3. Seroquel. 4. Paroxetine. 5. Metoprolol. 6. Lisinopril. 7. Neurontin. 8. Lasix. 9. Folate. 10. Symbicort. 11. Atorvastatin. 12. Allopurinol. 13. Tylenol. 14. He is currently on a heparin drip as he was found to have a cardiac thrombus. ALLERGIES: NO KNOWN DRUG ALLERGIES. FAMILY HISTORY: Congestive heart failure on the mom's side. The dad had COPD. SOCIAL HISTORY No smoking tobacco or drug use. REVIEW OF SYSTEMS: A review of systems is negative for ten systems other than the history of present illness. PHYSICAL EXAMINATION: GENERAL: In general, the patient is awake, alert and in no acute distress sitting in a chair. HEAD, EYES, EARS, NOSE, THROAT: Normocephalic and atraumatic. Pupils round and reactive to light. Extraocular muscles intact. NECK: The neck is supple. LUNGS: Clear. HEART: Regular rate and rhythm. ABDOMEN: Abdomen soft and nontender. EXTREMITIES: The right ankle has swelling and ecchymosis and tenderness to palpation of the distal fibula. He has a well-padded splint. He can flex his toes distally. Brisk capillary refill. Sensation intact distally. No calf swelling. X-RAYS: Right ankle shows a distal fibula fracture with mild displacement. The ankle mortise is intact. IMPRESSION: 70-year-old male status post fall right distal fibula fracture with mild displacement and ankle mortise intact. PLAN: I discussed the diagnosis and treatment options with the patient. I recommend nonoperative treatment. Will place and maintain a well-padded sugar-tong splint, strict non-weightbearing right lower extremity. Follow up with Dr. Brendan Cheney within two weeks of discharge . MD JESSICA Mccain/KODY /12:32 PM /1:04 PM
--- NOTE | 2016-08-18 13:36 | HHI.PR ---
Subjective Remarks feeling better, voiding well, no chest pains SR Objective Vitals Vital Signs Date Time Temp Pulse Resp B/P Pulse Ox O2 Delivery O2 Flow Rate FiO2 08/18/16 12:00 80 08/18/16 11:15 Room Air 97 08/18/16 11:15 97.9 79 18 96/64 97 08/18/16 11:00 84 08/18/16 10:00 82 08/18/16 09:00 82 08/18/16 08:05 Room Air 94 08/18/16 08:05 97.9 86 18 102/82 94 08/18/16 08:00 82 08/18/16 07:00 89 08/18/16 06:00 78 08/18/16 05:00 88 08/18/16 04:11 98.4 80 92/52 90 08/18/16 04:00 80 08/18/16 03:28 Room Air 2.00 21 08/18/16 03:00 75 08/18/16 02:00 88 08/18/16 01:00 86 08/18/16 00:37 98.5 51 93/63 93 08/18/16 00:00 86 08/17/16 23:03 Room Air 21 08/17/16 23:00 87 08/17/16 20:00 82 08/17/16 19:00 Room Air 21 08/17/16 19:00 93 08/17/16 19:00 98.3 91 100/73 96 08/17/16 18:47 95 08/17/16 17:00 97 08/17/16 16:00 96 08/17/16 15:00 96 Room Air 08/17/16 15:00 98.3 94 16 119/81 96 08/17/16 14:00 90 I/O 08/17/16 08/17/16 08/17/16 08/18/16 08/18/16 08/18/16 07:00 15:00 23:00 07:00 15:00 23:00 Intake Total 240 ml 700 ml 240 ml Output Total 400 ml 1450 ml 750 ml Balance -160 ml -750 ml -510 ml Intake Oral 240 ml 500 ml 240 ml IV Total 200 ml Output Urine Total 400 ml 1450 ml 750 ml # Bowel Movements 1 0 Result Diagram: 08/17/16 0433 08/17/16 1651 Imaging Last Impressions Ankle X-Ray 08/18/16 0000 Signed Impressions: Service Date/Time: Thursday, August 18, 2016 08:31 - CONCLUSION: Distal fibula fracture. Diony Howell MD Foot X-Ray 08/17/16 0000 Signed Impressions: Service Date/Time: Wednesday, August 17, 2016 19:48 - CONCLUSION: 1. Fractured distal fibula. 2. No acute fracture seen of the right foot but there is soft tissue swelling noted of the forefoot and bone destruction centered around the first metatarsophalangeal joint, nonspecific but most likely infectious or inflammatory. Please correlate clinically. Sammy Martínez MD Lower Extremity CT 08/16/16 0000 Signed Impressions: Service Date/Time: Wednesday, August 17, 2016 14:26 - CONCLUSION: 1. Fracture distal fibula Suresh Parekh MD Chest X-Ray 08/10/16 1549 Signed Impressions: Service Date/Time: Wednesday, August 10, 2016 16:20 - CONCLUSION: Pacer, compensated cardiomegaly. Petr Lopez MD FACR Renal Ultrasound 08/10/16 0000 Signed Impressions: Service Date/Time: Wednesday, August 10, 2016 20:47 - CONCLUSION: 1. No evidence of hydronephrosis. 2. Increased echogenicity of the renal parenchyma suggestive of chronic medical renal disease. 3. Right lower pole renal cyst measuring 2.3 cm. 4. There is some free fluid in the abdomen. Wil Tuttle MD Objective Remarks awake alert, NAD anicteric lungs no rales or wheezes regular rhythm- paced on telemetry abdomen soft, nontender extremities decrease leg swelling, foot pain and swelling improved, better range of motion, up with cane- baseline as OP no gross neuro deficits Date of Removal: August 15, 2016 A/P Assessment and Plan 70-year-old male with Acute exacerbation of combine systolic and diastolic CHF EF 30-35% Akinesia of the apical myocardium with Large partially calcified oval thrombus at LV apex measuring 20 mm in longest diameter. Right lower extremity pain - imrpoved ECHO reviewed EF of 30-35%. Regional wall motion abnormalities, akinesia of the apical myocardium with large partially calcified oval thrombus at LV apex measuring 20 mm in longest diameter. coumadin daily. INR therapeutic. DC heparin drip seen by vas surgeon as patient c/o right leg pain and ECHO with large apical LV thrombus.- anticoagulation Lasix po 20 mg bid. check BMP Has AICD, BNP noted elevated 1330. Troponin 0.05 he denies having any chest pain at this time Monitor I's and O's , fluid restriction 1200 ml MATILDA: Creatinine 1.96 BUN 30, low GFR 34 on admission. Resolved Monitor kidney function. Avoid nephrotoxins if possible. Ultrasound the kidney reviewed, changes consistent with chronic kidney disease. Cyst noted Improved. continue to monitor Nephrology ff BPH. Continue home Medications. COPD without exacerbation. continue home medications Hyperlipidemia- continue atorvastatin right distal right tibial fracture - seen by Orthopedics. non operative management for now. NWB right foot. PT consult -OP ff up in [address] Burk -GIOVANNA Colchicine- doubt gout Pyuria- in initial UA- asymptomatic- afebrile recheck UA now c and S if indicated DC planning- - CM consult for DME arrangements [facility] FF up with[facility]. Burk- ortho in 2 weeks FF up with Cardioogy in 1 week Kaity Yuen MD August 18, 2016 13:36 Kaity Yuen MD August 18, 2016 13:36
[2016-08-18] MEDS ORDERED: METO25TA6 PO (13:45)
[2016-08-18] MEDS ORDERED: COUM5TAB PO (13:45)
[2016-08-18] MEDS ORDERED: FURO20TA PO (13:45)
--- NOTE | 2016-08-18 15:19 | HHI.FF ---
Face to Face Verification Diagnosis: (1) distaltibfr (2) CMP ,LV thrombus (3) CKD (chronic kidney disease) stage 3, GFR 30-59 ml/min Physical Therapy Order: Evaluate and Treat, Improve ambulation Home Health Nursing Order: Medical education Signs/symptoms of disease process Nursing assessment with vital signs Machine Tool Designer Order: To Evaluate: Living conditions/environment, Support services I have seen patient Dre Ricks on 08/18/16. My clinical findings support the need for the requested home health care services because: Ltd mobility - disease progression Deconditioned w/ increased weakness Limited ability to care for self Need for psychosocial assistance High risk of falls I certify that my clinical findings support that this patient is homebound because: Post-op weakness Unsteady gait/balance Kaity Yuen MD August 18, 2016 15:19
[2016-08-18] MEDS: WARFARIN SOD 5 MG TAB PO SCH (16:34)
[2016-08-18 16:48] LABS: BLOOD, URINE NEG (NEG); GLUCOSE,URINE NEG (NEG); HYALINE CAST, URINE 3 /lpf (RARE); KETONE, URINE NEG (NEG); MUCUS URINE FEW /lpf (OCC); NITRITE,URINE NEG (NEG); PH, URINE 6.5 (5.0-8.5); SQUAMOUS EPITHELIAL CELL URINE 1 /hpf (0-5); URINE COLOR YELLOW (YELLW/STRAW)
[2016-08-18 16:49] LABS: COMMENT (UR) CULTURE INDICATED; CULTURE IF INDICATED CULTURE INDICATED
[2016-08-18] MEDS ORDERED: LEVA500T PO (17:41)
[2016-08-18] MEDS ORDERED: LEVOFLOXACIN 500 MG TAB PO SCH (17:45)
[2016-08-18] MEDS ORDERED: CIPR500T2 PO (17:48)
[2016-08-18] MEDS ORDERED: WALKER WHEELS/F1 MIS (18:05)
--- NOTE | 2016-08-18 18:08 | HHI.DS ---
Discharge Summary Admission Date August 10, 2016 at 17:31 Discharge Date: August 18, 2016 Admitting Diagnosis CHF Exacerbation (1) CMP ,LV thrombus Diagnosis: Principal (2) Acute kidney insufficiency ICD Code: N28.9 Diagnosis: Principal (3) Closed fracture of right distal tibia ICD Code: S82.301A Diagnosis: Secondary Procedures none Brief History - From Admission 70 yo M past medical history of systolic congestive heart failure with AICD, hyperlipidemia, BPH, COPD, depression/anxiety arrives from the [facility] for evaluation of dyspnea on exertion and orthopnea for the past several days. He states he has been taking his Lasix as per usual. He denies the patient had a fall today at home. Denies pain or injury from the fall. Evidently he's been falling somewhat frequently at home. He suggested that his medications may need to be adjusted. Additionally he reports feeling somewhat dizzy. To me he states that he might have lost consciousness however he is not sure. He was seen at the [facility] this morning and was sent here for further investigation. The patient also reports his blood pressure is getting low at times. He denies having cough at this time. He is using multiple pillows at home. He has noted that swelling of his legs has increased over the past 2 days. He is getting more tired. He doesn't use any oxygen at home. No fever or chills. Denies nausea, vomiting. He says he used to have constipation from [place]. He takes [place] for chronic back pain. CBC/BMP: 08/17/16 0433 08/17/16 1651 Significant Findings Laboratory Tests Test 08/16/16 08/17/16 08/17/16 08/18/16 03:40 04:33 16:51 03:21 Prothrombin Time 12.8 SEC 18.9 SEC (9.8-11.6) (9.8-11.6) Activated Partial 67.1 SEC 68.5 SEC 81.5 SEC Thromboplast Time (24.3-30.1) (24.3-30.1) (24.3-30.1) B-Type Natriuretic Peptide 685 PG/ML (0-100) Red Blood Count 4.22 MIL/MM3 (4.50-5.90) Hemoglobin 11.0 GM/DL (13.0-17.0) Hematocrit 33.3 % (39.0-51.0) Mean Corpuscular Volume 78.8 FL (80.0-100.0) Mean Corpuscular Hemoglobin 26.0 PG (27.0-34.0) Carbon Dioxide Level 34.7 MEQ/L (21.0-32.0) Anion Gap 4 MEQ/L (5-15) Estimat Glomerular Filtration 65 ML/MIN (>89) Rate Test 08/18/16 08/18/16 05:15 16:20 Prothrombin Time 24.1 SEC (9.8-11.6) Urine Turbidity HAZY (CLEAR) Urine Leukocyte Esterase LARGE (NEG) Urine WBC 54 /hpf (0-5) Urine Mucus FEW /lpf (OCC) Imaging Last Impressions Ankle X-Ray 08/18/16 0000 Signed Impressions: Service Date/Time: Thursday, August 18, 2016 08:31 - CONCLUSION: Distal fibula fracture. Diony Howell MD Foot X-Ray 08/17/16 0000 Signed Impressions: Service Date/Time: Wednesday, August 17, 2016 19:48 - CONCLUSION: 1. Fractured distal fibula. 2. No acute fracture seen of the right foot but there is soft tissue swelling noted of the forefoot and bone destruction centered around the first metatarsophalangeal joint, nonspecific but most likely infectious or inflammatory. Please correlate clinically. Sammy Martínez MD Lower Extremity CT 08/16/16 0000 Signed Impressions: Service Date/Time: Wednesday, August 17, 2016 14:26 - CONCLUSION: 1. Fracture distal fibula Suresh Parekh MD Chest X-Ray 08/10/16 1549 Signed Impressions: Service Date/Time: Wednesday, August 10, 2016 16:20 - CONCLUSION: Pacer, compensated cardiomegaly. Petr Lopez MD FACR Renal Ultrasound 08/10/16 0000 Signed Impressions: Service Date/Time: Wednesday, August 10, 2016 20:47 - CONCLUSION: 1. No evidence of hydronephrosis. 2. Increased echogenicity of the renal parenchyma suggestive of chronic medical renal disease. 3. Right lower pole renal cyst measuring 2.3 cm. 4. There is some free fluid in the abdomen. 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 Right lower extremity pain - imrpoved ECHO reviewed EF of 30-35%. Regional wall motion abnormalities, akinesia of the apical myocardium with large partially calcified oval thrombus at LV apex measuring 20 mm in longest diameter. coumadin daily. INR therapeutic. DC heparin drip seen by [facility] surgeon as patient c/o right leg pain and ECHO with large apical LV thrombus.- anticoagulation Lasix po 20 mg bid. check BMP Has AICD, BNP noted elevated 1330. Troponin 0.05 he denies having any chest pain at this time Monitor I's and O's , fluid restriction 1200 ml MATILDA: Creatinine 1.96 BUN 30, low GFR 34 on admission. Resolved Monitor kidney function. Avoid nephrotoxins if possible. Ultrasound the kidney reviewed, changes consistent with chronic kidney disease. Cyst noted Improved. continue to monitor Nephrology ff BPH. Continue home Medications. COPD without exacerbation. continue home medications Hyperlipidemia- continue atorvastatin right distal right tibial fracture - seen by Orthopedics. non operative management for now. NWB right foot. PT consult -OP ff up in [address] Burk -[facility] Col[facility]- doubt gout Pyuria- in initial UA- asymptomatic- afebrile recheck UA now c and S if indicated DC planning- - CM consult for DME arrangements [facility] FF up withDr. Burk- padmini in 2 weeks FF up with Cardioogy in 1 week Pt Condition on Discharge: Good Discharge Disposition: Discharge Home Discharge Time: <= 30 minutes Discharge Instructions DIET: Follow Instructions for: Heart Healthy Diet Speech Therapy-Diet Recommends: Regular Activities you can perform: Non Weight Bearing (right lower extremity) Follow up Referrals: [facility] - 2 Weeks with Skyler Burk MD PCP Follow-up - [facility] We[facility] with [facility] New Orders: BASIC METABOLIC PROF - 08/20/16 PT/INR - 08/20/16 New Medications: Ciprofloxacin (Ciprofloxacin) 500 Mg Tab 500 MG PO BID Infection Days 6 Ref 0 TAB Walker with Front Wheels (Walker with Front Wheels) 1 Mis Mis 1 EA .ROUTE DIRECTED non weightbearing on right ankle fract #1 Ref 0 EA Furosemide (Furosemide) 20 Mg Tab 20 MG PO BID@09,18 CHF Days 30 TAB Metoprolol Succinate ER 24 HR (Metoprolol Succinate ER 24 HR) 25 Mg Tab 25 MG PO DAILY CMP Days 30 TAB Warfarin (Coumadin) 5 Mg Tab 5 MG PO DAILY@16 LVTHrom Days 30 TAB Continued Medications: Acetaminophen (Tylenol) 325 Mg Tab 325 MG PO Q6H PRN PAIN 1-10 AND/OR FEVER >101F Ref 0 TAB Albuterol 18 GM Inh (Ventolin Hfa 18 GM Inh) 90 Mcg/Act Aer 2 PUFF INH QID PRN SHORTNESS OF BREATH #1 Ref 0 INHALER Allopurinol (Allopurinol) 100 Mg Tab 100 MG PO DAILY Gout #30 Ref 0 TAB Atorvastatin (Atorvastatin) 20 Mg Tab 10 MG PO HS Cholesterol Management #30 Ref 0 TAB Budesonide-Formoterol Inh (Symbicort Inh) 160-4.5 Mcg/Act Aero 2 PUFF INH Q12HR #1 Ref 0 INHALER Cyanocobalamin (Vitamin B-12) 1,000 Mcg Tab 1000 MCG PO DAILY Nutritional Supplement #1 Ref 0 BOTTLE Docusate Sodium (Colace) 100 Mg Cap 100 MG PO BID Constipation #60 Ref 0 CAP Folic Acid (Folate) 1 Mg Tab 1 MG PO DAILY Nutritional Supplement Ref 0 TAB Gabapentin (Gabapentin) 100 Mg Cap 100 MG PO TID #90 Ref 0 CAP Lisinopril (Lisinopril) 2.5 Mg Tab 2.5 MG PO DAILY Hold if SBP <90 #30 Ref 0 TAB Paroxetine (Paroxetine) 40 Mg Tab 20 MG PO DAILY #30 Ref 0 TAB Quetiapine (Seroquel) 400 Mg Tab 400 MG PO HS #30 Ref 0 TAB Tamsulosin (Tamsulosin) 0.4 Mg Cap 0.4 MG PO HS Manage Prostate Problems #30 Ref 0 CAP Discontinued Medications: Furosemide (Lasix) 20 Mg Tab 20 MG PO DAILY #30 Ref 0 TAB Hydrocodone-Acetaminophen (Hydrocodone-Acetaminophen) 7.5-325 mg Tab 1 TAB PO Q4H PRN PAIN Ref 0 TAB Metoprolol Succinate ER 24 HR (Metoprolol Succinate ER 24 HR) 100 Mg Tab 50 MG PO DAILY Hold if SBP <90 #30 Ref 0 TAB Naproxen (Naproxen) 500 Mg Tab 500 MG PO BID #60 Ref 0 TAB Kaity Yuen MD August 18, 2016 18:08
[2016-08-18] MEDS: TAMSULOSIN HCL 0.4 MG CAP PO SCH (21:15)
[2016-08-18] MEDS: ATORVASTATIN 20 MG TAB PO SCH (21:15)
[2016-08-18] MEDS: QUEtiapine FUMARATE 200 MG TAB PO SCH (21:15)
[2016-08-19] VITALS (13 sets, daily range): BP systolic 83–90; BP diastolic 52–75; PULSE 71–89; RESP 18–20; TEMP 97.4–98.2; O2SAT 94–97
[2016-08-19] MEDS: COLCHICINE 0.6 MG TAB PO SCH (05:59)
--- NOTE | 2016-08-19 07:45 | HHI.PR ---
Subjective Remarks slept well, voiding well, no dysuria no pain complains Objective Vitals Vital Signs Date Time Temp Pulse Resp B/P Pulse Ox O2 Delivery O2 Flow Rate FiO2 08/19/16 06:25 78 08/19/16 05:00 74 08/19/16 04:35 73 08/19/16 03:41 94 Room Air 08/19/16 03:41 98.2 74 20 90/56 94 08/19/16 03:41 77 08/19/16 02:16 76 08/19/16 01:10 71 08/19/16 00:40 83/52 08/19/16 00:00 79 08/18/16 23:30 97.5 80 18 74/53 95 08/18/16 23:30 95 Room Air 08/18/16 23:15 82 08/18/16 22:00 86 08/18/16 21:00 82 08/18/16 20:00 88 08/18/16 20:00 97 Room Air 08/18/16 20:00 98.4 84 16 110/60 97 08/18/16 18:00 90 08/18/16 17:00 86 08/18/16 16:00 86 08/18/16 15:15 97.7 82 18 90/71 98 08/18/16 15:15 Room Air 98 08/18/16 15:00 82 08/18/16 14:00 80 08/18/16 13:00 84 08/18/16 12:00 80 08/18/16 11:15 Room Air 97 08/18/16 11:15 97.9 79 18 96/64 97 08/18/16 11:00 84 08/18/16 10:00 82 08/18/16 09:00 82 08/18/16 08:05 Room Air 94 08/18/16 08:05 97.9 86 18 102/82 94 08/18/16 08:00 82 I/O 08/18/16 08/18/16 08/18/16 08/19/16 08/19/16 08/19/16 07:00 15:00 23:00 07:00 15:00 23:00 Intake Total 240 ml 744 ml 360 ml Output Total 750 ml 600 ml 280 ml Balance -510 ml 144 ml 80 ml Intake Oral 240 ml 720 ml 360 ml IV Total 24 ml Output Urine Total 750 ml 600 ml 280 ml # Bowel Movements 0 Result Diagram: 08/17/16 0433 08/17/16 1651 Imaging Last Impressions Ankle X-Ray 08/18/16 0000 Signed Impressions: Service Date/Time: Thursday, August 18, 2016 08:31 - CONCLUSION: Distal fibula fracture. Diony Howell MD Foot X-Ray 08/17/16 0000 Signed Impressions: Service Date/Time: Wednesday, August 17, 2016 19:48 - CONCLUSION: 1. Fractured distal fibula. 2. No acute fracture seen of the right foot but there is soft tissue swelling noted of the forefoot and bone destruction centered around the first metatarsophalangeal joint, nonspecific but most likely infectious or inflammatory. Please correlate clinically. Sammy Martínez MD Lower Extremity CT 08/16/16 0000 Signed Impressions: Service Date/Time: Wednesday, August 17, 2016 14:26 - CONCLUSION: 1. Fracture distal fibula Suresh Parekh MD Chest X-Ray 08/10/16 1549 Signed Impressions: Service Date/Time: Wednesday, August 10, 2016 16:20 - CONCLUSION: Pacer, compensated cardiomegaly. Petr Lopez MD FACR Renal Ultrasound 08/10/16 0000 Signed Impressions: Service Date/Time: Wednesday, August 10, 2016 20:47 - CONCLUSION: 1. No evidence of hydronephrosis. 2. Increased echogenicity of the renal parenchyma suggestive of chronic medical renal disease. 3. Right lower pole renal cyst measuring 2.3 cm. 4. There is some free fluid in the abdomen. 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 Right lower extremity pain - imrpoved ECHO reviewed EF of 30-35%. Regional wall motion abnormalities, akinesia of the apical myocardium with large partially calcified oval thrombus at LV apex measuring 20 mm in longest diameter. coumadin daily. INR therapeutic. DC heparin drip seen by [facility] surgeon as patient c/o right leg pain and ECHO with large apical LV thrombus.- anticoagulation Lasix po 20 mg bid. Has AICD, BNP noted elevated 1330. Troponin 0.05 he denies having any chest pain at this time Monitor I's and O's , fluid restriction 1200 ml MATILDA: Creatinine 1.96 BUN 30, low GFR 34 on admission. Resolved Monitor kidney function. Avoid nephrotoxins if possible. Ultrasound the kidney reviewed, changes consistent with chronic kidney disease. Cyst noted Improved. continue to monitor Nephrology ff BPH. Continue home Medications. COPD without exacerbation. continue home medications Hyperlipidemia- continue atorvastatin Right distal right tibial fracture - seen by Orthopedics. non operative management for now. NWB right foot. PT consult -OP ff up in [address] Burk -GIOVANNA Colchicine- doubt gout Pyuria- in initial UA- asymptomatic- afebrile ff final c and s on ciprofloxacin 500 mg po bid awaiting PT eval and DME DC planning- - CM consult for DME arrangements [facility] with[facility]- ortho in 2 weeks FF up with Cardioogy in 1 week seen with PT- did very well PT also recommended to get a wheelchair for long distance. Kaity Yuen MD August 19, 2016 07:45
[2016-08-19] MEDS ORDERED: WHEEMIS3 (07:55)
[2016-08-19] MEDS ORDERED: CIPR-9 PO (08:06)
[2016-08-19] MEDS: METOPROLOL SUCCINATE 25 MG EXTENDED RELEASE TAB PO SCH (08:36)
[2016-08-19] MEDS: DOCUSATE SODIUM 100 MG CAP PO SCH (08:36)
[2016-08-19] MEDS: CYANOCOBALAMIN 1,000 MCG TAB PO SCH (08:36)
[2016-08-19] MEDS: FOLIC ACID 1 MG TAB PO SCH (08:36)
[2016-08-19] MEDS: LISINOPRIL 5 MG TAB PO SCH (08:36)
[2016-08-19] MEDS: CHOLECALCIFEROL (VIT D3) 1000 UNIT TAB PO SCH (08:36)
[2016-08-19] MEDS: FUROSEMIDE 20 MG TAB PO SCH (08:36)
[2016-08-19] MEDS: SODIUM CHLORIDE 0.9% FLUSH 10 ML FLUSH IV FLUSH SCH (08:36)
[2016-08-19] MEDS: PARoxetine HCL 20 MG TAB PO SCH (08:37)
[2016-08-19] MEDS: GABAPENTIN 100 MG CAP PO SCH (08:37)
[2016-08-19] MEDS: BUDESONIDE-FORMOTEROL 160/4.5 MCG INHALER INH SCH (08:37)
[2016-08-19] MEDS ORDERED: CIPROFLOXACIN 500 MG TAB PO SCH (09:00)
--- NOTE | 2016-08-19 09:38 | PD.CARD.PN ---
Subjective Subjective Remarks alert in nad Objective Vital Signs / I&O Vital Signs Date Time Temp Pulse Resp B/P Pulse Ox O2 Delivery O2 Flow Rate FiO2 08/19/16 06:25 78 08/19/16 05:00 74 08/19/16 04:35 73 08/19/16 03:41 94 Room Air 08/19/16 03:41 98.2 74 20 90/56 94 08/19/16 03:41 77 08/19/16 02:16 76 08/19/16 01:10 71 08/19/16 00:40 83/52 08/19/16 00:00 79 08/18/16 23:30 97.5 80 18 74/53 95 08/18/16 23:30 95 Room Air 08/18/16 23:15 82 08/18/16 22:00 86 08/18/16 21:00 82 08/18/16 20:00 88 08/18/16 20:00 97 Room Air 08/18/16 20:00 98.4 84 16 110/60 97 08/18/16 18:00 90 08/18/16 17:00 86 08/18/16 16:00 86 08/18/16 15:15 97.7 82 18 90/71 98 08/18/16 15:15 Room Air 98 08/18/16 15:00 82 08/18/16 14:00 80 08/18/16 13:00 84 08/18/16 12:00 80 08/18/16 11:15 Room Air 97 08/18/16 11:15 97.9 79 18 96/64 97 08/18/16 11:00 84 08/18/16 10:00 82 I/O 08/18/16 08/18/16 08/18/16 08/19/16 08/19/16 08/19/16 07:00 15:00 23:00 07:00 15:00 23:00 Intake Total 240 ml 744 ml 360 ml Output Total 750 ml 600 ml 280 ml Balance -510 ml 144 ml 80 ml Intake Oral 240 ml 720 ml 360 ml IV Total 24 ml Output Urine Total 750 ml 600 ml 280 ml # Bowel Movements 0 Physical Exam GENERAL: SKIN: Warm and dry. HEAD: Normocephalic. EYES: No scleral icterus. No injection or drainage. NECK: Supple, trachea midline. No JVD or lymphadenopathy. CARDIOVASCULAR: Regular rate and rhythm without murmurs, gallops, or rubs. RESPIRATORY: Breath sounds equal bilaterally. No accessory muscle use. GASTROINTESTINAL: Abdomen soft, non-tender, nondistended. MUSCULOSKELETAL: No cyanosis, or edema. BACK: Nontender without obvious deformity. No CVA tenderness. Laboratory Laboratory Tests Test 08/18/16 16:20 Urine Color YELLOW Urine Turbidity HAZY Urine pH 6.5 Urine Specific [place] 1.015 Urine Protein TRACE mg/dL Urine Glucose (UA) NEG mg/dL Urine Ketones NEG mg/dL Urine Occult Blood NEG Urine Nitrite NEG Urine Bilirubin NEG Urine Urobilinogen 2.0 MG/DL Urine Leukocyte Esterase LARGE Urine RBC 2 /hpf Urine WBC 54 /hpf Urine Squamous Epithelial 1 /hpf Cells Urine Hyaline Casts 3 /lpf Urine Mucus FEW /lpf Microscopic Urinalysis Comment CULTURE INDICATED Imaging GENERAL: SKIN: Warm and dry. HEAD: Normocephalic. EYES: No scleral icterus. No injection or drainage. NECK: Supple, trachea midline. No JVD or lymphadenopathy. CARDIOVASCULAR: Regular rate and rhythm without murmurs, gallops, or rubs. RESPIRATORY: Breath sounds equal bilaterally. No accessory muscle use. GASTROINTESTINAL: Abdomen soft, non-tender, nondistended. MUSCULOSKELETAL: No cyanosis, or edema. BACK: Nontender without obvious deformity. No CVA tenderness. Assessment and Plan Problem List: (1) CHF (congestive heart failure) (2) Acute kidney insufficiency (3) CKD (chronic kidney disease) stage 3, GFR 30-59 ml/min (4) LV (left ventricular) mural thrombus without ND Assessment and Plan 1.) Cardiomyopathy/chf - continue diuresis, lopressor, altace, f/u bnp 2.) LV thrombus - f/u vasc surg rec, on coumadin, inr 2.1, ok to dc from cv standpoint, [facility], d/w patient and nurse Problem Qualifiers (1) CHF (congestive heart failure): Qualified Code: I50.9 - Congestive heart failure, unspecified congestive heart failure chronicity, unspecified congestive heart failure type Harshal Jennings MD August 19, 2016 09:37
== END 2016-08-19 11:00 | disposition home or self-care (01) | DRG 292 ==
LOC: NEPC 15:23 → NEDA 17:31 → NEPFCDU 19:40 → HCIN 08-11 18:35
PROVIDERS: ADMIT Internal Medicine; ATTEND Internal Medicine
DX: I50.41 Acute combined systolic (congestive) and diastolic (congestive) heart failure (principal); I42.9 Cardiomyopathy, unspecified; N17.9 Acute kidney failure, unspecified; N39.0 Urinary tract infection, site not specified; E55.9 Vitamin D deficiency, unspecified; J44.9 Chronic obstructive pulmonary disease, unspecified; I51.3 Intracardiac thrombosis, not elsewhere classified; E78.5 Hyperlipidemia, unspecified; N40.0 Benign prostatic hyperplasia without lower urinary tract symptoms; F41.8 Other specified anxiety disorders; G89.29 Other chronic pain; Z95.810 Presence of automatic (implantable) cardiac defibrillator; I25.2 Old myocardial infarction; I49.3 Ventricular premature depolarization; M10.9 Gout, unspecified; N18.3 Chronic kidney disease, stage 3 (moderate); S82.831A Other fracture of upper and lower end of right fibula, initial encounter for closed fracture; W19.XXXA Unspecified fall, initial encounter; Y92.009 Unspecified place in unspecified non-institutional (private) residence as the place of occurrence of the external cause; F17.200 Nicotine dependence, unspecified, uncomplicated; Z86.79 Personal history of other diseases of the circulatory system
CPT/HCPCS: 71010; 73610; 73630; 73700; 76775; 80048; 80053; 80069; 81001; 82306; 82550; 82552; 83735; 83880; 83883; 83970; 84165; 84484; 85025; 85027; 85610; 85730; 86160; 86317; 86335; 86803; 87077; 87086; 87186; 87205; 87340; 93005; 93306; J1644; J1650; J1940

== ENCOUNTER 2016-08-21 16:35 | Inpatient (IN) | payer MEDICARE, OTHER ==
[~2016-08-21] VITALS: Ht 185.4 cm; Wt 99.8 kg
[~2016-08-21 16:35] MED LIST: ALLO100T PO; ATOR20TA15 PO; CIPR-9 PO; COLA100C3 PO; COUM5TAB PO; FOLI1TAB4 PO; FURO20TA PO; GABA100C4 PO; LISI2.5T3 PO; METO25TA6 PO; PARO40TA2 PO; SERO400T PO; SYMB160A INH; TAMS0.4C4 PO; TYLE325T PO; VENTAER INH; VITA10002 PO; WALKER WHEELS/F1 MIS; WHEEMIS3
[2016-08-21 16:43] VITALS: BP 92/63; PULSE 66; RESP 18; TEMP 97.9; O2SAT 97
[2016-08-21 16:49] VITALS: BP 92/63; PULSE 72; RESP 18; TEMP 97.9; O2SAT 98
[2016-08-21 17:30] VITALS: BP 95/68; PULSE 69; RESP 18; O2SAT 98
[2016-08-21 17:40] LABS: AUTOMATED NEUTROPHIL # 5.7 TH/MM3 (1.8-7.7); BASOPHIL # 0.1 TH/MM3 (0-0.2); BASOPHIL % 0.7 % (0.0-2.0); HEMATOCRIT 39.2 % (39.0-51.0); HEMO FLAGS DIFF FINAL; LYMPH % 17.1 % (9.0-44.0); LYMPHOCYTE # 1.4 TH/MM3 (1.0-4.8); MEAN CELL VOLUME 80.3 FL (80.0-100.0); MEAN CORPUSCULAR HEMOGLOBIN 25.5 PG (27.0-34.0); MEAN CORPUSCULAR HGB CONC 31.8 % (32.0-36.0); MONO % 11.6 % (0.0-8.0); NEUT % 70.6 % (16.0-70.0); PLATELET COUNT 264 TH/MM3 (150-450); RED BLOOD COUNT 4.88 MIL/MM3 (4.50-5.90); RED CELL DISTRIBUTION WIDTH 17.5 % (11.6-17.2); WHITE BLOOD COUNT 8.1 TH/MM3 (4.0-11.0)
[2016-08-21 17:57] LABS: ALKALINE PHOSPHATASE 169 U/L (45-117); TOTAL BILIRUBIN ADULT 1.4 MG/DL (0.2-1.0)
[2016-08-21 18:06] LABS: ALT (GPT) 94 U/L (12-78); ANION GAP 9 MEQ/L (5-15); BICARBONATE 24.2 MEQ/L (21.0-32.0); CHLORIDE 97 MEQ/L (98-107); GLOMERULAR FILTRATION RATE 31 ML/MIN (>89); SODIUM (NA) 130 MEQ/L (136-145)
[2016-08-21 18:07] LABS: AST (GOT) 175 U/L (15-37); BLOOD UREA NITROGEN 39 MG/DL (7-18); POTASSIUM 6.4 MEQ/L (3.5-5.1)
[2016-08-21 18:30] VITALS: BP 99/69; PULSE 68; RESP 18; O2SAT 98
[2016-08-21] MEDS ORDERED: ATOR10TA15 PO (18:45)
[2016-08-21] MEDS ORDERED: PARO1TAB72 PO (18:45)
--- NOTE | 2016-08-21 19:29 | PD ---
HPI Chief Complaint: Abnormal Results Time Seen by Provider: 17:02 Travel History International Travel<30 days: No Contact w/Intl Traveler<30days: No Traveled to known affect area: No History of Present Illness HPI To 7-year-old man who was sent to the emergency department from the [place] for hypotension. Patient was recently admitted for CHF. He had medications adjusted including increasing his Lasix, cutting his metoprolol in half, for CHF symptoms. He had fallen and broken his ankle and is nonweightbearing on his broken ankle as well. He went to the [place] for routine follow-up after being discharged couple days ago. There is blood pressure was in the 70s. He is a history of orthostatic hypotension symptoms, but is been able to manage this behavior early. He knows if he gets up slowly he can manage the symptoms. He has not had low blood pressures before that he knows of. History Past Medical History Narrative Medical CHF/AICD/pacer Hyperlipidemia BPH COPD Anxiety and depression Tetanus Vaccination: > 5 Years Influenza Vaccination: No Social History Alcohol Use: Yes (occ) Tobacco Use: No Allergies-Medications (Allergen,Severity, Reaction): Coded Allergies: No Known Allergies (Unverified , 08/10/16) Reported Meds & Prescriptions Reported Meds & Active Scripts Active Cipro (Ciprofloxacin HCl) 500 Mg Tab 500 Mg PO BID PRN Coumadin (Warfarin) 5 Mg Tab 5 Mg PO DAILY@16 30 Days Metoprolol Succinate ER 24 HR (Metoprolol Succinate) 25 Mg Tab 25 Mg PO DAILY 30 Days Furosemide 20 Mg Tab 20 Mg PO BID@09,18 30 Days Reported Paroxetine (Paroxetine HCl) 20 Mg Tab 20 Mg PO DAILY Atorvastatin (Atorvastatin Calcium) 10 Mg Tab 10 Mg PO HS Tamsulosin (Tamsulosin HCl) 0.4 Mg Cap 0.4 Mg PO HS Seroquel (Quetiapine Fumarate) 400 Mg Tab 400 Mg PO HS Lisinopril 2.5 Mg Tab 2.5 Mg PO DAILY Hold if SBP <90 Gabapentin 100 Mg Cap 100 Mg PO TID Folate (Folic Acid) 1 Mg Tab 1 Mg PO DAILY Colace (Docusate Sodium) 100 Mg Cap 100 Mg PO BID Vitamin B-12 (Cyanocobalamin) 1,000 Mcg Tab 1,000 Mcg PO DAILY Symbicort Inh (Budesonide/Formoterol Fumarate) 160-4.5 Mcg/Act Aero 2 Puff INH Q12HR Allopurinol 100 Mg Tab 100 Mg PO DAILY Ventolin Hfa 18 GM Inh (Albuterol Sulfate) 90 Mcg/Act Aer 2 Puff INH QID PRN Tylenol (Acetaminophen) 325 Mg Tab 325 Mg PO Q6H PRN Review of Systems Except as stated in HPI: all other systems reviewed are Neg Physical Exam Narrative GENERAL: Well-appearing 7-year-old man, no acute distress. SKIN: Focused skin assessment warm/dry. HEAD: Atraumatic. Normocephalic. EYES: Pupils equal and round. No scleral icterus. No injection or drainage. ENT: No nasal bleeding or discharge. Mucous membranes pink and moist. NECK: Trachea midline. No JVD. CARDIOVASCULAR: Regular rate and rhythm. No murmur appreciated. RESPIRATORY: No accessory muscle use. Clear to auscultation. Breath sounds equal bilaterally. GASTROINTESTINAL: Abdomen soft, non-tender, nondistended. Hepatic and splenic margins not palpable. MUSCULOSKELETAL: No obvious deformities. No clubbing. No cyanosis. No edema. NEUROLOGICAL: Awake and alert. No obvious cranial nerve deficits. Motor grossly within normal limits. Normal speech. PSYCHIATRIC: Appropriate mood and affect; insight and judgment normal. Data Data Last Documented VS Vital Signs Date Time Temp Pulse Resp B/P Pulse Ox O2 Delivery O2 Flow Rate FiO2 08/21/16 18:30 68 18 99/69 98 Room Air 08/21/16 16:49 97.9 Orders Complete Blood Count With Diff (08/21/16 17:18) Comprehensive Metabolic Panel (08/21/16 17:18) Troponin I (08/21/16 17:18) Electrocardiogram (08/21/16 ) Iv Access Insert/Monitor (08/21/16 17:18) Admit Order (Ed Use Only) (08/21/16 ) Labs Laboratory Tests Test 08/21/16 17:15 White Blood Count 8.1 TH/MM3 Red Blood Count 4.88 MIL/MM3 Hemoglobin 12.5 GM/DL Hematocrit 39.2 % Mean Corpuscular Volume 80.3 FL Mean Corpuscular Hemoglobin 25.5 PG Mean Corpuscular Hemoglobin 31.8 % Concent Red Cell Distribution Width 17.5 % Platelet Count 264 TH/MM3 Mean Platelet Volume 8.7 FL Neutrophils (%) (Auto) 70.6 % Lymphocytes (%) (Auto) 17.1 % Monocytes (%) (Auto) 11.6 % Eosinophils (%) (Auto) 0.0 % Basophils (%) (Auto) 0.7 % Neutrophils # (Auto) 5.7 TH/MM3 Lymphocytes # (Auto) 1.4 TH/MM3 Monocytes # (Auto) 0.9 TH/MM3 Eosinophils # (Auto) 0.0 TH/MM3 Basophils # (Auto) 0.1 TH/MM3 CBC Comment DIFF FINAL Differential Comment Sodium Level 130 MEQ/L Potassium Level 6.4 MEQ/L Chloride Level 97 MEQ/L Carbon Dioxide Level 24.2 MEQ/L Anion Gap 9 MEQ/L Blood Urea Nitrogen 39 MG/DL Creatinine 2.10 MG/DL Estimat Glomerular Filtration 31 ML/MIN Rate Random Glucose 119 MG/DL Calcium Level 9.0 MG/DL Total Bilirubin 1.4 MG/DL Aspartate Amino Transf 175 U/L (AST/SGOT) Alanine Aminotransferase 94 U/L (ALT/SGPT) Alkaline Phosphatase 169 U/L Troponin I LESS THAN 0.02 NG/ML Total Protein 7.6 GM/DL Albumin 3.2 GM/DL [facility] Medical Decision Making Medical Screen Exam Complete: Yes Emergency Medical Condition: Yes Interpretation(s) My review of EKG: V paced at a rate of 67 LABS: CBC is remarkable for mild anemia. CMP is remarkable for elevated BUN and creatinine, mildly elevated liver enzymes Troponin negative Differential Diagnosis CHF, dehydration, renal injury, infection, adverse effect to medication, other Narrative Course Medical decision-making new 70-year-old male presents emergency department for hypotension with a routine follow-up after being admitted for CHF exacerbation. His acute kidney injury may be over diuresed as an etiology of his symptoms. He also had low blood pressures in the hospital, and he cut his metoprolol from 50-25. However [facility] I think he is still taking the 50 mg. Patient is not sure and does not have his actual medication bottles with them. He has not however filled any of his prescriptions from being discharged from the hospital. He was being treated for bladder infection as well. He has not filled those antibiotics. Given the hypotension, kidney injury, and diagnostic uncertainty, will admit him for further evaluation and treatment. Diagnosis Primary Impression: Acute kidney insufficiency Additional Impression: CHF (congestive heart failure) Admitting Information Admitting Physician Requests: Admit Robbie Marshall MD August 21, 2016 19:28
--- NOTE | 2016-08-21 19:44 | EKG ---
Date Performed: 08/21/2016 Time Performed: 17:28:08 PTAGE: 70 years EKG: Sinus rhythm ELECTRONIC VENTRICULAR PACEMAKER ABNORMAL RHYTHM ECG PREVIOUS TRACING : 08/10/2016 16.07 Compared to prior tracing no significant change DOCTOR: Katherine Orozco Interpretating Date/Time 08/21/2016 19:43:32
[2016-08-21 22:00] VITALS: O2SAT 97
[2016-08-21] MEDS ORDERED: ACETAMINOPHEN 325 MG TAB PO PRN (22:00)
[2016-08-21] MEDS ORDERED: NALOXONE HCL 0.4 MG/ML AMP IV PRN (22:00)
[2016-08-21] MEDS ORDERED: SODIUM CHLORIDE 0.9% FLUSH 10 ML FLUSH IV FLUSH PRN (22:00)
[2016-08-21 22:16] VITALS: BP 97/65; PULSE 65; RESP 16; O2SAT 98
--- NOTE | 2016-08-21 22:20 | HHI.HP ---
[facility] Admission Diagnosis acute kidney injury, dehydration, hypotension Diagnoses: Chief Complaint: Shortness of breath, lightheadedness Travel History International Travel<30 Days: No Contact w/Intl Traveler <30 Da: No Traveled to Known Affected Are: No History of Present Illness The patient is a 70-year-old male with past medical history of CHF who was recently discharged from the hospital who is presenting to the hospital with hypotension. The patient was hospitalized recently for a CHF exacerbation and was discharged home 2 days ago. He says this morning at breakfast he felt lightheaded. He also endorsed some shortness of breath. He had an appointment at the [place] so he went there and once they checked his vital signs he was referred to the hospital. The patient says she has felt lightheaded for some time. He will see stars in front of his eyes and sometimes nearly passed out. He says his medications were adjusted last time he was in the hospital. He says he is urinating regularly. He denies any chest pain. He says he has been trying to eat healthy but did eat some fast food recently. He says the swelling in his lower extremities has improved. He says his blood pressure does not tend to run very high. Review of Systems Except as stated in HPI: all other systems reviewed are Neg Past Family Social History Past Medical History Systolic congestive heart failure AICD placement Hyperlipidemia BPH COPD Depression/anxiety Right ankle fracture LV thrombus Allergies: Coded Allergies: No Known Allergies (Unverified , 08/10/16) Family History CHF Social History The patient says he quit smoking cigars one week ago. He has rare alcohol use. Physical Exam Vital Signs Vital Signs Date Time Temp Pulse Resp B/P Pulse Ox O2 Delivery O2 Flow Rate FiO2 08/21/16 18:30 68 18 99/69 98 Room Air 08/21/16 17:30 69 18 95/68 98 Room Air 08/21/16 16:49 97.9 72 18 92/63 98 Room Air 08/21/16 16:49 76 18 98 Room Air 08/21/16 16:43 97.9 66 18 92/63 97 Physical Exam GENERAL: Resting comfortably, in no acute distress. SKIN: Focused skin assessment warm/dry. HEAD: Atraumatic. Normocephalic. EYES: Pupils equal and round. No scleral icterus. No injection or drainage. ENT: No nasal bleeding or discharge. Mucous membranes pink and moist. NECK: Trachea midline. No JVD. CARDIOVASCULAR: Regular rate and rhythm. No murmur appreciated. RESPIRATORY: No accessory muscle use. Clear to auscultation. Breath sounds equal bilaterally. GASTROINTESTINAL: Abdomen soft, non-tender, nondistended. Hepatic and splenic margins not palpable. MUSCULOSKELETAL: No obvious deformities. No clubbing. No cyanosis. 1-2+ lower extremity edema. Right leg is bandaged. NEUROLOGICAL: Awake and alert. No obvious cranial nerve deficits. Motor grossly within normal limits. Normal speech. PSYCHIATRIC: Appropriate mood and affect; insight and judgment normal. Laboratory Laboratory Tests Test 08/21/16 17:15 White Blood Count 8.1 Red Blood Count 4.88 Hemoglobin 12.5 Hematocrit 39.2 Mean Corpuscular Volume 80.3 Mean Corpuscular Hemoglobin 25.5 Mean Corpuscular Hemoglobin 31.8 Concent Red Cell Distribution Width 17.5 Platelet Count 264 Mean Platelet Volume 8.7 Neutrophils (%) (Auto) 70.6 Lymphocytes (%) (Auto) 17.1 Monocytes (%) (Auto) 11.6 Eosinophils (%) (Auto) 0.0 Basophils (%) (Auto) 0.7 Neutrophils # (Auto) 5.7 Lymphocytes # (Auto) 1.4 Monocytes # (Auto) 0.9 Eosinophils # (Auto) 0.0 Basophils # (Auto) 0.1 CBC Comment DIFF FINAL Differential Comment Sodium Level 130 Potassium Level 6.4 Chloride Level 97 Carbon Dioxide Level 24.2 Anion Gap 9 Blood Urea Nitrogen 39 Creatinine 2.10 Estimat Glomerular Filtration 31 Rate Random Glucose 119 Calcium Level 9.0 Total Bilirubin 1.4 Aspartate Amino Transf 175 (AST/SGOT) Alanine Aminotransferase 94 (ALT/SGPT) Alkaline Phosphatase 169 Troponin I LESS THAN 0.02 Total Protein 7.6 Albumin 3.2 Result Diagram: 08/21/16 1715 08/21/165 Assessment and Plan Assessment and Plan Acute on chronic systolic heart failure The patient has an ejection fraction of 30-35%. He has an AICD in place. He was recently hospitalized and discharged a couple of days ago. BNP 685. Has lower extremity edema. - Hold diuresis in the setting of acute renal failure. - Hold antihypertensive medications in the setting of hypotension. - Monitor on telemetry. - Cardiology consult if needed. Acute renal failure/ hyponatremia/ hyperkalemia Likely secondary to overdiuresis and hypotension. Seen by nephrology on the previous admission. - Repeat BMP and treat hyperkalemia as needed. - Hold diuretics. - Avoid nephrotoxic agents. Hypotension/ dizziness May be medication induced. - Hold antihypertensive medications. - Check orthostatics. Dyspnea Satting well on room air. - Check a chest x-ray. Elevated LFTs Recent serology negative for hepatitis. Possibly secondary to hepatic congestion. - Check liver ultrasound. - Trend LFTs. Left ventricular thrombus Noted on recent echo. - continue Coumadin and follow INR. Right distal right tibial fracture Non operative management for now. - NWB right foot. - OP fu with Dr. Burk. PPx: Coumadin Code Status Full Discussed Condition With Pt, Dr. Marshall Physician Certification 2 Midnight Certification Type: Admission for Inpatient Services Order for Inpatient Services The services are ordered in accordance with Medicare regulations or non- Medicare payer requirements, as applicable. In the case of services not specified as inpatient-only, they are appropriately provided as inpatient services in accordance with the 2-midnight benchmark. Estimated LOS (days): 2 days is the estimated time the patient will need to remain in the hospital, assuming treatment plan goals are met and no additional complications. Post-Hospital Plan: Home Blaine Almeida DO August 21, 2016 22:20
[2016-08-21 22:35] LABS: PROTHROMBIN TIME - PATIENT 20.7 SEC (9.8-11.6)
[2016-08-21 22:36] LABS: INTERNATIONAL NORMALIZED RATIO 1.8 RATIO
--- NOTE | 2016-08-21 22:41 | RADRPT ---
EXAM DATE/TIME: 08/21/2016 22:15 [facility] COMPARISON: CHEST SINGLE AP, August 10, 2016, 16:20. INDICATIONS : Chest pain. MEDICAL HISTORY : None. SURGICAL HISTORY : defibillator. ENCOUNTER: Initial ACUITY: 1 day PAIN SCORE: 0/10 LOCATION: Bilateral chest FINDINGS: A single view of the chest demonstrates the lungs to be symmetrically aerated without evidence of a m ass. Mild blunting of the right costophrenic angle is again noted with hazy opacity at the right lung base. The left subclavian AV sequential transvenous pacer remains in place. There is a defibrillator lead. The cardiomediastinal contours are unremarkable. Osseous structures are intact. CONCLUSION: 1. The right costophrenic angle remains mildly blunted consistent with a small effusion. 2. Hazy opacity remains at the right lung base which may represent mild infiltrate. Blaine Marino MD on August 21, 2016 at 22:39 Board Certified Radiologist. This report was verified electronically.
[2016-08-21 22:50] LABS: BICARBONATE 27.1 MEQ/L (21.0-32.0); POTASSIUM 4.5 MEQ/L (3.5-5.1)
[2016-08-21] MEDS: QUEtiapine FUMARATE 200 MG TAB PO SCH (23:14)
[2016-08-22] VITALS (8 sets, daily range): BP systolic 89–103; BP diastolic 53–71; PULSE 67–76; RESP 18–22; TEMP 96.8–97.9; O2SAT 93–97
[2016-08-22] MEDS: SODIUM CHLORIDE 0.9% FLUSH 10 ML FLUSH IV FLUSH SCH ×2 (09:00→20:11)
[2016-08-22] MEDS: BUDESONIDE-FORMOTEROL 160/4.5 MCG INHALER INH SCH ×2 (09:00→20:11)
[2016-08-22] MEDS: PARoxetine HCL 20 MG TAB PO SCH (09:12)
[2016-08-22] MEDS: CYANOCOBALAMIN 1,000 MCG TAB PO SCH (09:12)
[2016-08-22] MEDS: ALLOPURINOL 100 MG TAB PO SCH (09:12)
[2016-08-22] MEDS: FOLIC ACID 1 MG TAB PO SCH (09:12)
[2016-08-22] MEDS: DOCUSATE SODIUM 100 MG CAP PO SCH ×2 (09:12→20:10)
--- NOTE | 2016-08-22 09:33 | RADRPT ---
EXAM DATE/TIME: 08/22/2016 07:49 [facility] COMPARISON: No previous studies available for comparison. INDICATIONS : Increased lab values. MEDICAL HISTORY : Myocardial infarction. Congestive heart failure. Hypercholesterolemia. COPD. Asthma. Gout. PTSD. Anxi ety. SURGICAL HISTORY : Defib placement. ENCOUNTER: Initial ACUITY: 1 day PAIN SCORE: 1/10 LOCATION: Bilateral Abdomen. MEASUREMENTS: LIVER: 18.5 cm length COMMON DUCT: 3 mm RIGHT KIDNEY: 10.4 x 5.4 x 4.9 cm SPLEEN: 13.0 cm length FINDINGS: LIVER: Mildly enlarged. No focal mass or biliary ductal the location. Mild perihepatic ascites and pleural e ffusions. COMMON DUCT: No intraluminal mass or stone visualized. GALLBLADDER: Mild diffuse wall thickening and minimal delphine-cholecystic fluid which is nonspecific in the setting o f liver disease and ascites. PANCREAS: The visualized portions are within normal limits. RIGHT KIDNEY: Small cyst arising exophytically from the lower pole measuring about 2 cm. No hydronephrosis. Normal cortical thickness and echogenicity. SPLEEN: Mildly enlarged. CONCLUSION: Hepatosplenomegaly. Ascites. Nonspecific appearance of the gallbladder. Renal cyst Sammy Palmer MD on August 22, 2016 at 9:19 Board Certified Radiologist. This report was verified electronically.
[2016-08-22 11:09] LABS: AUTOMATED NEUTROPHIL # 5.6 TH/MM3 (1.8-7.7); BASOPHIL % 0.4 % (0.0-2.0); EOSINOPHIL % 0.1 % (0.0-4.0); HEMATOCRIT 36.8 % (39.0-51.0); HEMO FLAGS DIFF FINAL; LYMPH % 18.1 % (9.0-44.0); LYMPHOCYTE # 1.5 TH/MM3 (1.0-4.8); MEAN CELL VOLUME 79.8 FL (80.0-100.0); MEAN CORPUSCULAR HEMOGLOBIN 25.6 PG (27.0-34.0); NEUT % 68.4 % (16.0-70.0); PLATELET COUNT 229 TH/MM3 (150-450); RED BLOOD COUNT 4.61 MIL/MM3 (4.50-5.90); RED CELL DISTRIBUTION WIDTH 17.3 % (11.6-17.2); WHITE BLOOD COUNT 8.2 TH/MM3 (4.0-11.0)
--- NOTE | 2016-08-22 11:11 | HHI.PR ---
Subjective Remarks Patient reports he is feeling better today. No dizziness or blurry vision. He admits that he did not change his home medications the last time he left the hospital. He is not sure what medication and dosage is taking at home. He denies chest pain or shortness of breath. Objective Vitals Vital Signs Date Time Temp Pulse Resp B/P Pulse Ox O2 Delivery O2 Flow Rate FiO2 08/22/16 08:00 97.9 68 18 96/66 94 08/22/16 04:00 96.8 67 18 103/71 96 08/22/16 00:00 96.9 67 20 101/68 93 08/21/16 22:16 65 16 97/65 98 Room Air 08/21/16 22:00 97 08/21/16 18:30 68 18 99/69 98 Room Air 08/21/16 17:30 69 18 95/68 98 Room Air 08/21/16 16:49 97.9 72 18 92/63 98 Room Air 08/21/16 16:49 76 18 98 Room Air 08/21/16 16:43 97.9 66 18 92/63 97 I/O 08/21/16 08/21/16 08/21/16 08/22/16 08/22/16 08/22/16 07:00 15:00 23:00 07:00 15:00 23:00 Intake Total 240 ml Output Total 0 ml Balance 240 ml Intake Oral 240 ml IV Total 0 ml Output Urine Total 0 ml # Voids 0 # Bowel Movements 0 Result Diagram: 08/21/16 1715 08/21/16 2210 Imaging Last Impressions Liver Ultrasound 08/22/16 0000 Signed Impressions: Service Date/Time: Monday, August 22, 2016 07:49 - CONCLUSION: Hepatosplenomegaly. Ascites. Nonspecific appearance of the gallbladder. Renal cyst Sammy Palmer MD Chest X-Ray 08/21/16 0000 Signed Impressions: Service Date/Time: Sunday, August 21, 2016 22:15 - CONCLUSION: 1. The right costophrenic angle remains mildly blunted consistent with a small effusion. 2. Hazy opacity remains at the right lung base which may represent mild infiltrate. Blaine Marino MD Objective Remarks GENERAL: This is a well-nourished, well-developed patient, in no apparent distress. CARDIOVASCULAR: Normal rate and regular rhythm without murmurs, gallops, or rubs. RESPIRATORY: Good respiratory efforts. Breath sounds equal and clear to auscultation bilaterally. GASTROINTESTINAL: Abdomen soft, non-tender, non-distended. Normal active bowel sounds MUSCULOSKELETAL:2+ LE edema. Right LE in cast. . NEURO: Alert & Oriented x4 to person, place, time, situation. Moves all ext x4 PSYCH: Appropriate mood and affect. A/P Assessment and Plan Acute on chronic systolic heart failure The patient has an ejection fraction of 30-35%. He has an AICD in place. He was recently hospitalized and discharged a couple of days ago. BNP 685. Has lower extremity edema. - Diuretics has been on hold due to borderline low blood pressure. Last time he was discharged from the hospital, he was supposed to be on a lower dose of metoprolol. However it appears that he has been taking the 50 mg dose at home. Consult cardiology for assistance - Hold antihypertensive medications in the setting of hypotension. - Monitor on telemetry Hypotension/ dizziness: Likely related to medication. Worsening heart failure is also a possibility. - Continue to hold metoprolol, Lasix and lisinopril Acute renal failure/ hyponatremia/ hyperkalemia - Could be related to heart failure. - Improving - Avoid nephrotoxic agents. UTI: Enterococcus from previous culture. Not previously treated - Treat with Macrobid. Elevated LFTs Recent serology negative for hepatitis. Possibly secondary to hepatic congestion. -Liver ultrasound shows hepatomegaly and ascites. - Trend LFTs. Left ventricular thrombus Noted on recent echo. - continue Coumadin and follow INR. Pharmacy consult. Right distal right tibial fracture Non operative management for now. - NWB right foot. - OP fu with Dr. Burk. PPx: Coumadin Betsy Talley MD August 22, 2016 11:11
[2016-08-22 11:27] LABS: ALKALINE PHOSPHATASE 150 U/L (45-117); ALT (GPT) 429 U/L (12-78); ANION GAP 10 MEQ/L (5-15); AST (GOT) 617 U/L (15-37); BICARBONATE 25.6 MEQ/L (21.0-32.0); BLOOD UREA NITROGEN 42 MG/DL (7-18); CHLORIDE 100 MEQ/L (98-107); GLOMERULAR FILTRATION RATE 37 ML/MIN (>89); POTASSIUM 4.1 MEQ/L (3.5-5.1); SODIUM (NA) 136 MEQ/L (136-145); TOTAL BILIRUBIN ADULT 1.3 MG/DL (0.2-1.0)
--- NOTE | 2016-08-22 11:41 | HHI.FF ---
Face to Face Verification Diagnosis: (1) Hypotension (2) Acute kidney insufficiency (3) CHF (congestive heart failure) (4) CKD (chronic kidney disease) stage 3, GFR 30-59 ml/min (5) Closed fracture of right distal tibia (6) LV (left ventricular) mural thrombus without [place] Physical Therapy Order: Evaluate and Treat, Improve ambulation, Strength and gait training Instructions: RLE non weight bearing. Home Health Nursing Order: Medical education Signs/symptoms of disease process CHF education Medication education-adverse effect Nursing assessment with vital signs I have seen patient Dre Ricks on 08/22/16. My clinical findings support the need for the requested home health care services because: Ltd mobility - disease progression Deconditioned w/ increased weakness Limited ability to care for self Need for psychosocial assistance Infection w/ risk of complications I certify that my clinical findings support that this patient is homebound because: Need for psychosocial assistance Poor cardiac reserve Betsy Talley MD August 22, 2016 11:41
[2016-08-22] MEDS ORDERED: WARFARIN SOD 2.5 MG TAB PO ONE (16:00)
[2016-08-22] MEDS: WARFARIN SOD 5 MG TAB PO SCH (17:03)
[2016-08-22] MEDS: NITROFURANTOIN MONOHYD MACROCR 100 MG CAP PO SCH (17:03)
[2016-08-22 17:32] LABS: BLOOD, URINE NEG (NEG); COMMENT (UR) CULT NOT INDICATED; CULTURE IF INDICATED CULT NOT INDICATED; GLUCOSE,URINE NEG (NEG); HYALINE CAST, URINE 7 /lpf (RARE); KETONE, URINE NEG (NEG); NITRITE,URINE NEG (NEG); SQUAMOUS EPITHELIAL CELL URINE 1 /hpf (0-5); URINE COLOR YELLOW (YELLW/STRAW)
[2016-08-22] MEDS: QUEtiapine FUMARATE 200 MG TAB PO SCH (20:10)
[2016-08-23] VITALS: PULSE 69; RESP 20; TEMP 97.1; O2SAT 94
[2016-08-23 04:00] VITALS: BP 106/69; PULSE 67; RESP 20; TEMP 97.7; O2SAT 94
[2016-08-23 05:39] LABS: INTERNATIONAL NORMALIZED RATIO 1.6 RATIO; PROTHROMBIN TIME - PATIENT 18.1 SEC (9.8-11.6)
[2016-08-23 05:50] LABS: MEAN CELL VOLUME 79.1 FL (80.0-100.0); MEAN CORPUSCULAR HEMOGLOBIN 25.3 PG (27.0-34.0); PLATELET COUNT 218 TH/MM3 (150-450); RED BLOOD COUNT 4.42 MIL/MM3 (4.50-5.90); RED CELL DISTRIBUTION WIDTH 17.7 % (11.6-17.2); REVIEW FLAG FINAL; WHITE BLOOD COUNT 6.5 TH/MM3 (4.0-11.0)
[2016-08-23 06:09] LABS: BICARBONATE 28.4 MEQ/L (21.0-32.0); POTASSIUM 3.7 MEQ/L (3.5-5.1)
[2016-08-23] MEDS: CYANOCOBALAMIN 1,000 MCG TAB PO SCH (07:56)
[2016-08-23] MEDS: BUDESONIDE-FORMOTEROL 160/4.5 MCG INHALER INH SCH (07:56)
[2016-08-23] MEDS: PARoxetine HCL 20 MG TAB PO SCH (07:56)
[2016-08-23] MEDS: NITROFURANTOIN MONOHYD MACROCR 100 MG CAP PO SCH (07:56)
[2016-08-23] MEDS: FOLIC ACID 1 MG TAB PO SCH (07:56)
[2016-08-23] MEDS: ALLOPURINOL 100 MG TAB PO SCH (07:56)
[2016-08-23] MEDS: DOCUSATE SODIUM 100 MG CAP PO SCH (07:56)
[2016-08-23] MEDS: SODIUM CHLORIDE 0.9% FLUSH 10 ML FLUSH IV FLUSH SCH (07:56)
[2016-08-23 08:00] VITALS: BP 97/66; PULSE 77; RESP 17; TEMP 96.4; O2SAT 94
[2016-08-23 09:44] VITALS: O2SAT 96
[2016-08-23 12:00] VITALS: BP 114/67; PULSE 76; RESP 17; TEMP 96.8; O2SAT 94
--- NOTE | 2016-08-23 13:30 | HHI.DS ---
Discharge Summary Admission Date August 21, 2016 at 19:09 Discharge Date: August 23, 2016 Admitting Diagnosis acute kidney injury, dehydration, hypotension (1) Hypotension ICD Code: I95.9 (2) CHF (congestive heart failure) ICD Code: I50.9 (3) Closed fracture of right distal tibia ICD Code: S82.301A (4) CKD (chronic kidney disease) stage 3, GFR 30-59 ml/min ICD Code: N18.3 (5) LV (left ventricular) mural thrombus without [place] ICD Code: I51.3 Procedures None Brief History - From Admission The patient is a 70-year-old male with past medical history of CHF who was recently discharged from the hospital who is presenting to the hospital with hypotension. The patient was hospitalized recently for a CHF exacerbation and was discharged home 2 days ago. He says this morning at breakfast he felt lightheaded. He also endorsed some shortness of breath. He had an appointment at the [facility] so he went there and once they checked his vital signs he was referred to the hospital. The patient says she has felt lightheaded for some time. He will see stars in front of his eyes and sometimes nearly passed out. He says his medications were adjusted last time he was in the hospital. He says he is urinating regularly. He denies any chest pain. He says he has been trying to eat healthy but did eat some fast food recently. He says the swelling in his lower extremities has improved. He says his blood pressure does not tend to run very high. CBC/BMP: 08/23/16 0410 08/23/16 0410 Significant Findings Laboratory Tests Test 08/21/16 08/21/16 08/22/16 08/23/16 17:15 22:10 10:15 04:10 Hemoglobin 12.5 GM/DL 11.8 GM/DL 11.2 GM/DL (13.0-17.0) (13.0-17.0) (13.0-17.0) Mean Corpuscular Hemoglobin 25.5 PG 25.6 PG 25.3 PG (27.0-34.0) (27.0-34.0) (27.0-34.0) Mean Corpuscular Hemoglobin 31.8 % Concent (32.0-36.0) Red Cell Distribution Width 17.5 % 17.3 % 17.7 % (11.6-17.2) (11.6-17.2) (11.6-17.2) Neutrophils (%) (Auto) 70.6 % (16.0-70.0) Monocytes (%) (Auto) 11.6 % 13.0 % (0.0-8.0) (0.0-8.0) Sodium Level 130 MEQ/L 134 MEQ/L (136-145) (136-145) Potassium Level 6.4 MEQ/L (3.5-5.1) Chloride Level 97 MEQ/L (98-107) Blood Urea Nitrogen 39 MG/DL (7-18) 40 MG/DL (7-18) 42 MG/DL (7-18) 37 MG/DL (7- 18) Creatinine 2.10 MG/DL 2.13 MG/DL 1.82 MG/DL 1.49 MG/DL (0.60-1.30) (0.60-1.30) (0.60-1.30) (0.60-1.30) Estimat Glomerular Filtration 31 ML/MIN (>89) 31 ML/MIN (>89) 37 ML/MIN (>89) 47 ML/MIN (>89) Rate Random Glucose 119 MG/DL 110 MG/DL (74-106) (74-106) Total Bilirubin 1.4 MG/DL 1.3 MG/DL (0.2-1.0) (0.2-1.0) Aspartate Amino Transf 175 U/L (15-37) 617 U/L (15-37) (AST/SGOT) Alanine Aminotransferase 94 U/L (12-78) 429 U/L (12-78) (ALT/SGPT) Alkaline Phosphatase 169 U/L 150 U/L (45-117) (45-117) Troponin I LESS THAN 0.02 NG/ML (0.02-0.05) Albumin 3.2 GM/DL 3.1 GM/DL (3.4-5.0) (3.4-5.0) Prothrombin Time 20.7 SEC 18.1 SEC (9.8-11.6) (9.8-11.6) Hematocrit 36.8 % 35.0 % (39.0-51.0) (39.0-51.0) Mean Corpuscular Volume 79.8 FL 79.1 FL (80.0-100.0) (80.0-100.0) Monocytes # (Auto) 1.1 TH/MM3 (0-0.9) Red Blood Count 4.42 MIL/MM3 (4.50-5.90) Calcium Level 8.4 MG/DL (8.5-10.1) Imaging Last Impressions Liver Ultrasound 08/22/16 0000 Signed Impressions: Service Date/Time: Monday, August 22, 2016 07:49 - CONCLUSION: Hepatosplenomegaly. Ascites. Nonspecific appearance of the gallbladder. Renal cyst Sammy Palmer MD Chest X-Ray 08/21/16 0000 Signed Impressions: Service Date/Time: Sunday, August 21, 2016 22:15 - CONCLUSION: 1. The right costophrenic angle remains mildly blunted consistent with a small effusion. 2. Hazy opacity remains at the right lung base which may represent mild infiltrate. Blaine Marino MD PE at Discharge GENERAL: This is a well-nourished, well-developed patient, in no apparent distress. CARDIOVASCULAR: Normal rate and regular rhythm without murmurs, gallops, or rubs. RESPIRATORY: Good respiratory efforts. Breath sounds equal and clear to auscultation bilaterally. GASTROINTESTINAL: Abdomen soft, non-tender, non-distended. Normal active bowel sounds MUSCULOSKELETAL:2+ LE edema. Right LE in cast. . NEURO: Alert & Oriented x4 to person, place, time, situation. Moves all ext x4 PSYCH: Appropriate mood and affect. Pt update on day of discharge Patient reports is feeling well. Denies lightheadedness, chest pain or shortness of breath. Feels comfortable going home. I reviewed discharge planning at length, especially medications, and the need to follow-up outpatient. Hospital Course 70-year-old male admitted and treated for the following conditions: Acute on chronic systolic heart failure The patient has an ejection fraction of 30-35%. He has an AICD in place. He was recently hospitalized and discharged a couple of days ago. BNP 685. Has lower extremity edema. - Diuretics has been on hold due to borderline low blood pressure. Last time he was discharged from the hospital, he was supposed to be on a lower dose of metoprolol. However it appears that he has been taking the 50 mg dose at home. - Patient worsening symptoms appear to have been due to adverse effects from the medications. His blood pressure and symptoms improved with holding metoprolol and lisinopril. Patient is stable for discharge home with home health care. His vital signs and weight will be monitored at home. I discussed with reed press feeder, Dr. Jennings. He will follow up outpatient. Hypotension/ dizziness: Likely related to medication. Symptoms significantly improved after holding metoprolol, Lasix, and lisinopril. Advised patient to continue to hold his medications. Home health care ordered to assist patient to a medication to ensure he is taking the right medications Acute renal failure/ hyponatremia/ hyperkalemia: This was likely due to relative dehydration and hypotension from medications. Renal functions significantly improved to near baseline. - Outpatient follow-up is advised. UTI: Enterococcus from previous culture. Not previously treated - Treat with Macrobid. Elevated LFTs Recent serology negative for hepatitis. Most likely secondary to hepatic congestion. - Liver ultrasound shows hepatomegaly and ascites. Left ventricular thrombus Noted on recent echo at the last admission. - continue Coumadin Right distal right tibial fracture Non operative management for now. - NWB right foot. - OP fu with Dr. Burk. Pt Condition on Discharge: Good Discharge Disposition: Disch w/ Home Health Serv Discharge Time: > 30 minutes Discharge Instructions DIET: Follow Instructions for: Heart Healthy Diet, Coumadin (Warfarin) Diet Activities you can perform: Regular-No Restrictions, See Additionl Instruction Other Activity Instructions: Non weight bearing right leg Follow up Referrals: Cardiology - 1 Week with Harshal Jennings MD PCP Follow-up - 1 Week New Medications: Nitrofurantoin Monohydrate Macrocrystals (Nitrofurantoin Monohydrate Macrocrystals) 100 Mg Cap 100 MG PO BIDPC #14 CAP Continued Medications: Acetaminophen (Tylenol) 325 Mg Tab 325 MG PO Q6H PRN PAIN 1-10 AND/OR FEVER >101F Ref 0 TAB Albuterol 18 GM Inh (Ventolin Hfa 18 GM Inh) 90 Mcg/Act Aer 2 PUFF INH QID PRN SHORTNESS OF BREATH #1 Ref 0 INHALER Allopurinol (Allopurinol) 100 Mg Tab 100 MG PO DAILY Gout #30 Ref 0 TAB Atorvastatin (Atorvastatin) 10 Mg Tab 10 MG PO HS Cholesterol Management #30 Ref 0 TAB Budesonide-Formoterol Inh (Symbicort Inh) 160-4.5 Mcg/Act Aero 2 PUFF INH Q12HR #1 Ref 0 INHALER Cyanocobalamin (Vitamin B-12) 1,000 Mcg Tab 1000 MCG PO DAILY Nutritional Supplement #1 Ref 0 BOTTLE Docusate Sodium (Colace) 100 Mg Cap 100 MG PO BID Constipation #60 Ref 0 CAP Folic Acid (Folate) 1 Mg Tab 1 MG PO DAILY Nutritional Supplement Ref 0 TAB Furosemide (Furosemide) 20 Mg Tab 20 MG PO BID@09,18 CHF Days 30 TAB Paroxetine (Paroxetine) 20 Mg Tab 20 MG PO DAILY #30 Ref 0 TAB Quetiapine (Seroquel) 400 Mg Tab 400 MG PO HS #30 Ref 0 TAB Tamsulosin (Tamsulosin) 0.4 Mg Cap 0.4 MG PO HS Manage Prostate Problems #30 Ref 0 CAP Warfarin (Coumadin) 5 Mg Tab 5 MG PO DAILY@16 LVTHrom Days 30 TAB Discontinued Medications: Ciprofloxacin (Cipro) 500 Mg Tab 500 MG PO BID PRN INF #11 Ref 0 TAB Gabapentin (Gabapentin) 100 Mg Cap 100 MG PO TID #90 Ref 0 CAP Lisinopril (Lisinopril) 2.5 Mg Tab 2.5 MG PO DAILY Hold if SBP <90 #30 Ref 0 TAB Metoprolol Succinate ER 24 HR (Metoprolol Succinate ER 24 HR) 25 Mg Tab 25 MG PO DAILY CMP Days 30 TAB Betsy Talley MD August 23, 2016 13:30
[2016-08-23] MEDS ORDERED: NITR100C4 PO (13:43)
[2016-08-23] MEDS ORDERED: WARFARIN SOD 2.5 MG TAB PO ONE (16:00)
[2016-08-23] MEDS: WARFARIN SOD 5 MG TAB PO SCH (16:17)
--- NOTE | 2016-08-23 16:59 | MB ---
cc: FATEMEH SANZ M.D. DATE OF CONSULTATION: 08/23/2016 REASON FOR CONSULTATION: Dre is a very pleasant 70-year-old gentleman recently admitted for CHF, found have a large LV thrombus in the LV apex placed on Coumadin, bridged with heparin also decompensated heart failure, he was placed on optimal medical therapy. This was complicated by acute renal failure and some possible cardiorenal syndrome. The patient was stabilized on optimal medical therapy, close to be euvolemic, improved creatinine, discharge several days ago saw his doctor [facility] the [facility] yesterday, complained of some worsening shortness of breath which was mild and sent to the ER at the advice is the [facility] doctor. He has been evaluated by myself and Dr. Talley, he is feeling much better today. Denies any resting shortness of breath, chest pain, fever, chills, cough bleeding, orthopnea square dizziness. PAST MEDICAL HISTORY: Past medical history as appears in history of present illness. He is also found to be hypotensive at the [facility]. The past medical history also includes recent ankle fracture status post AICD, hyperlipidemia, benign prostatic hypertrophy, anxiety, depression. SOCIAL HISTORY Drinks alcohol occasionally. Denies tobacco use. ALLERGIES None. MEDICATIONS PRIOR TO ADMISSION 1. Cipro 2. Coumadin. 3. Metoprolol 25 daily 4. Furosemide 20 b.i.d. 5. Paroxetine. 6. Atorvastatin 10 at bedtime. 7. Tamsulosin. 8. Seroquel. 9. Lisinopril 2.5 10. Gabapentin. 11. Folate. 12. Colace. 13. Vitamin B12. 14. Symbicort. 15. Allopurinol. 16. Ventolin. 17. Tylenol MEDICATIONS IN THE HOSPITAL: 1. Warfarin 2.5 2. Seroquel. 3. Macrobid. 4. Warfarin 5, Alternating with 2.5. 5. Allopurinol 100 daily 6. Symbicort 7. B12 8. Doxy 100 b.i.d. 9. Folic acid 1 mg daily 10. Paroxetine 20 daily. PHYSICAL EXAMINATION VITAL SIGNS: Initial blood pressure 89/58, currently 140/67, pulse 76, temperature 96.8, sats 94% on room air. IN GENERAL: He is alert and oriented times three in no acute distress. NECK: Supple, no jugular venous distention, no bruits. CARDIOVASCULAR SYSTEM: S1, S2, no murmurs, rubs or gallops, his course is to follow. ABDOMEN: The abdomen is soft, nontender, positive bowel sounds. LOWER EXTREMITIES: Lower extremity edema. RADIOLOGIC: Chest x-ray Shows mild costophrenic angle remains mildly blunted consistent with a small effusion. Hazy patchy <<3:07>> at the right lung base which may represent mild infiltrate. EKG A sensed V paced rhythm at 67 beats per minute. LABORATORY FINDINGS: White count of 6.5, hemoglobin 11.2, hematocrit 35.0, platelet count 218, INR is 1.6, sodium 130, potassium 6.4, chloride 97, bicarb 24.2, BUN 39, Creatinine 2.10, potassium 0.02, albumin 3.2, AST 175, ALT 94. Today's labs CK indexes 71, 37, potassium 3.7, chloride 100. Bicarbonate 28.4. Blood urea nitrogen 37, creatinine 1.149. DIAGNOSIS 1. Left ventricle thrombus. 2. Hypotension. 3. Acute renal failure. 4. Chronic renal insufficiency. 5. Hyponatremia. 6. Ankle fracture. 7. Elevated liver function test. 8. Anemia. 9. Pleural effusion. 10. Status post ICD. 11. Cardiomyopathy. DISCUSSION/PLAN At this point and time the patient has hypotension, he does not appear to be significantly symptomatic. Dr Talley decrease the patient's beta christiano. He will need to go home on Lasix. He probably has a component of cardiorenal syndrome and optimization of his medical therapy is going to be difficult and the patient is anxious to go home. He is currently euvolemic, his creatinine is at baseline I do think it is reasonable to let him go home on Coumadin, change Lasix to once a day. Decrease his beta-christiano dose to half of the previous dose and follow up with me on Sunday August 28, 2016 discuss this with the patient himself and also Dr. Talley. MD STACEY Dai/karolyn /1:52 PM /4:41 PM
== END 2016-08-23 16:16 | disposition home health service (06) | DRG 291 ==
LOC: NEPE 16:35 → NEDA 19:09 → N07A 23:09
PROVIDERS: ADMIT Family Medicine; ATTEND Family Medicine
DX: I13.0 Hypertensive heart and chronic kidney disease with heart failure and stage 1 through stage 4 chronic kidney disease, or unspecified chronic kidney disease (principal); K72.00 Acute and subacute hepatic failure without coma; N17.9 Acute kidney failure, unspecified; E86.0 Dehydration; I24.0 Acute coronary thrombosis not resulting in myocardial infarction; K76.1 Chronic passive congestion of liver; N18.3 Chronic kidney disease, stage 3 (moderate); I95.2 Hypotension due to drugs; I50.23 Acute on chronic systolic (congestive) heart failure; N39.0 Urinary tract infection, site not specified; E87.1 Hypo-osmolality and hyponatremia; E87.5 Hyperkalemia; Z95.810 Presence of automatic (implantable) cardiac defibrillator; J44.9 Chronic obstructive pulmonary disease, unspecified; E78.5 Hyperlipidemia, unspecified; N40.0 Benign prostatic hyperplasia without lower urinary tract symptoms; F41.9 Anxiety disorder, unspecified; F32.9 Major depressive disorder, single episode, unspecified; Z87.891 Personal history of nicotine dependence; T50.2X5A Adverse effect of carbonic-anhydrase inhibitors, benzothiadiazides and other diuretics, initial encounter; Z79.01 Long term (current) use of anticoagulants; B95.2 Enterococcus as the cause of diseases classified elsewhere
CPT/HCPCS: 71010; 76705; 80048; 80053; 81001; 84484; 85025; 85027; 85610; 93005; 99285